=== PATIENT | female | born 1960 | race Caucasian/White ===

== ENCOUNTER 2018-09-02 00:26 | Inpatient (IN) | payer OTHER ==
[2018-09-02] MEDS ORDERED: ACETAMINOPHEN IV (For NPO) 1,000 MG in EMPTY BAG 1 BAG IVPB STA (00:39)
[2018-09-02] MEDS ORDERED: SODIUM CHLORIDE 0.9% 500 ML 500 ML IV STA (00:39)
[2018-09-02] MEDS ORDERED: SODIUM CHLORIDE 0.9% 1,000 ML IV STA ×3 (00:39→04:29)
[2018-09-02] MEDS ORDERED: LORazepam 2 MG/ML INJ IV STA (00:41)
--- NOTE | 2018-09-02 00:42 | ED ---
Weakness HPI - General Chief complaint: Recheck/Abnormal Lab/Rx Stated complaint: tremors,nausea Time Seen by Provider: 09/02/18 00:39 Source: EMS, RN notes reviewed, old records reviewed Mode of arrival: EMS Limitations: no limitations - History of Present Illness Initial comments: This is a 38-year-old female the ER presenting to ER today for evaluation of tremors after taking Benadryl tonight. Patient has no prior similar reaction to taking Benadryl states vaginal every night before she goes to sleep. Patient has history of diabetes high blood pressure high cholesterol. Patient denies cough congestion abdominal pain nausea vomiting or diarrhea MD Complaint: generalized weakness -: hour(s) (1) Location: generalized Severity scale (1-10): 6 Quality: tingling, other (Tremors, Reiger's) Consistency: constant Improves with: none Worsens with: medication Context: recent illness Associated Symptoms: fever/chills, myalgias - Related Data Allergies Allergy/AdvReac Type Severity Reaction Status Date / Time No Known Allergies Allergy Verified 09/02/18 00:35 Review of Systems ROS Statement: Those systems with pertinent positive or pertinent negative responses have been documented in the HPI. ROS Other: All systems not noted in ROS Statement are negative. Past Medical History Past Medical History: Diabetes Mellitus, Hyperlipidemia, Hypertension History of Any Multi-Drug Resistant Organisms: None Reported Past Surgical History: No Surgical Hx Reported Past Psychological History: Depression Smoking Status: Former smoker Past Alcohol Use History: None Reported Past Drug Use History: None Reported General Exam Limitations: no limitations, altered mental status General appearance: alert, anxious, in distress Head exam: Present: atraumatic, normocephalic, normal inspection Eye exam: Present: normal appearance, PERRL, EOMI. Absent: scleral icterus, conjunctival injection, periorbital swelling ENT exam: Present: normal exam Neck exam: Present: normal inspection. Absent: tenderness, meningismus, lymphadenopathy Respiratory exam: Present: normal lung sounds bilaterally. Absent: respiratory distress, wheezes, rales, rhonchi, stridor Cardiovascular Exam: Present: normal rhythm, tachycardia, normal heart sounds. Absent: systolic murmur, diastolic murmur, rubs, gallop, clicks GI/Abdominal exam: Present: soft, normal bowel sounds. Absent: distended, tenderness, guarding, rebound, rigid Extremities exam: Present: normal inspection, full ROM, normal capillary refill. Absent: tenderness, pedal edema, joint swelling, calf tenderness Back exam: Present: normal inspection Neurological exam: Present: alert, oriented X3, CN II-XII intact Psychiatric exam: Present: normal affect, normal mood Skin exam: Present: warm, dry, intact, normal color. Absent: rash Course Vital Signs 09/02/18 09/02/18 09/02/18 00:30 01:00 01:30 Temperature 103.1 F H Pulse Rate 122 H 137 H 129 H Respiratory 22 14 16 Rate Blood Pressure 134/75 145/77 139/74 O2 Sat by Pulse 94 L 95 95 Oximetry 09/02/18 09/02/18 09/02/18 02:00 02:30 03:00 Temperature 100.8 F H Pulse Rate 125 H 118 H 120 H Respiratory 16 18 20 Rate Blood Pressure 139/74 101/54 98/51 O2 Sat by Pulse 95 95 98 Oximetry 09/02/18 09/02/18 03:30 04:32 Temperature 100.1 F H Pulse Rate 118 H 113 H Respiratory 18 20 Rate Blood Pressure 96/57 87/54 O2 Sat by Pulse 95 96 Oximetry - Reevaluation(s) Reevaluation #1: 09/02/18 00:59 Medical record is reviewed Reevaluation #2: 09/02/18 00:59 Patient given fever control feeling better Reevaluation #3: 09/02/18 05:18 Patient responded to fluid resuscitation alert and oriented EKG Findings - EKG Comments: EKG Findings:: CT shows sinus state Craig 13, DC 14, QRS 140, QTc 524 Medical Decision Making - Medical Decision Making 58 female the ER for evaluation of tremors and fever, rigors. Patient be admitted for IV antibiotics, - Lab Data Result diagrams: 09/02/18 00:40 09/02/18 00:40 Lab Results 09/02/18 09/02/18 09/02/18 Range/Units 00:40 00:40 00:40 WBC 6.9 (3.8-10.6) k/uL RBC 4.38 (3.80-5.40) m/uL Hgb 13.6 (11.4-16.0) gm/dL Hct 40.5 (34.0-46.0) % MCV 92.4 (80.0-100.0) fL MCH 31.0 (25.0-35.0) pg MCHC 33.6 (31.0-37.0) g/dL RDW 13.4 (11.5-15.5) % Plt Count 164 (150-450) k/uL Neutrophils % 90 % Lymphocytes % 7 % Monocytes % 1 % Eosinophils % 1 % Basophils % 0 % Neutrophils # 6.3 (1.3-7.7) k/uL Lymphocytes # 0.5 L (1.0-4.8) k/uL Monocytes # 0.1 (0-1.0) k/uL Eosinophils # 0.0 (0-0.7) k/uL Basophils # 0.0 (0-0.2) k/uL PT (9.0-12.0) sec INR (<1.2) APTT (22.0-30.0) sec Sodium 131 L (137-145) mmol/L Potassium 4.6 (3.5-5.1) mmol/L Chloride 98 (98-107) mmol/L Carbon Dioxide 20 L (22-30) mmol/L Anion Gap 13 mmol/L BUN 40 H (7-17) mg/dL Creatinine 0.81 (0.52-1.04) mg/dL Est GFR (CKD-EPI)AfAm >90 (>60 ml/min/1.73 sqM) Est GFR (CKD-EPI)NonAf 82 (>60 ml/min/1.73 sqM) Glucose 454 H (74-99) mg/dL POC Glucose (mg/dL) (75-99) mg/dL POC Glu [employer] ID Lactic Ac Sepsis Rflx Plasma Lactic Acid Wesley (0.7-2.0) mmol/L Calcium 9.6 (8.4-10.2) mg/dL Phosphorus 4.1 (2.5-4.5) mg/dL Magnesium 1.6 (1.6-2.3) mg/dL Total Bilirubin 0.4 (0.2-1.3) mg/dL AST 34 (14-36) U/L ALT 33 (9-52) U/L Alkaline Phosphatase 128 H (38-126) U/L Total Creatine Kinase 22 L (30-135) U/L CK-MB (CK-2) 0.3 (0.0-2.4) ng/mL CK-MB (CK-2) Rel Index 1.4 Troponin I <0.012 (0.000-0.034) ng/mL Total Protein 6.6 (6.3-8.2) g/dL Albumin 3.8 (3.5-5.0) g/dL Lipase 801 H (23-300) U/L TSH 2.130 (0.465-4.680) mIU/L Urine Color Urine Appearance (Clear) Urine pH (5.0-8.0) Ur Specific [place] (1.001-1.035) Urine Protein (Negative) Urine Glucose (UA) (Negative) Urine Ketones (Negative) Urine Blood (Negative) Urine Nitrite (Negative) Urine Bilirubin (Negative) Urine Urobilinogen (<2.0) mg/dL Ur Leukocyte Esterase (Negative) Urine HCG, Qual (Not Detectd) Salicylates 1.6 mg/dL Urine Opiates Screen (NotDetected) Ur Oxycodone Screen (NotDetected) Urine Methadone Screen (NotDetected) Ur Propoxyphene Screen (NotDetected) Acetaminophen <10.0 ug/mL Ur Barbiturates Screen (NotDetected) U Tricyclic Antidepress (NotDetected) Ur Phencyclidine Scrn (NotDetected) Ur Amphetamines Screen (NotDetected) U Methamphetamines Scrn (NotDetected) U Benzodiazepines Scrn (NotDetected) Urine Cocaine Screen (NotDetected) U Marijuana (THC) Screen (NotDetected) Serum Alcohol <10 mg/dL 09/02/18 09/02/18 09/02/18 Range/Units 00:40 00:40 01:35 WBC (3.8-10.6) k/uL RBC (3.80-5.40) m/uL Hgb (11.4-16.0) gm/dL Hct (34.0-46.0) % MCV (80.0-100.0) fL MCH (25.0-35.0) pg MCHC (31.0-37.0) g/dL RDW (11.5-15.5) % Plt Count (150-450) k/uL Neutrophils % % Lymphocytes % % Monocytes % % Eosinophils % % Basophils % % Neutrophils # (1.3-7.7) k/uL Lymphocytes # (1.0-4.8) k/uL Monocytes # (0-1.0) k/uL Eosinophils # (0-0.7) k/uL Basophils # (0-0.2) k/uL PT 9.5 (9.0-12.0) sec INR 1.0 (<1.2) APTT 18.5 L (22.0-30.0) sec Sodium (137-145) mmol/L Potassium (3.5-5.1) mmol/L Chloride (98-107) mmol/L Carbon Dioxide (22-30) mmol/L Anion Gap mmol/L BUN (7-17) mg/dL Creatinine (0.52-1.04) mg/dL Est GFR (CKD-EPI)AfAm (>60 ml/min/1.73 sqM) Est GFR (CKD-EPI)NonAf (>60 ml/min/1.73 sqM) Glucose (74-99) mg/dL POC Glucose (mg/dL) (75-99) mg/dL POC Glu [employer] ID Lactic Ac Sepsis Rflx Y Plasma Lactic Acid Wesley 3.2 H* (0.7-2.0) mmol/L Calcium (8.4-10.2) mg/dL Phosphorus (2.5-4.5) mg/dL Magnesium (1.6-2.3) mg/dL Total Bilirubin (0.2-1.3) mg/dL AST (14-36) U/L ALT (9-52) U/L Alkaline Phosphatase (38-126) U/L Total Creatine Kinase (30-135) U/L CK-MB (CK-2) (0.0-2.4) ng/mL CK-MB (CK-2) Rel Index Troponin I (0.000-0.034) ng/mL Total Protein (6.3-8.2) g/dL Albumin (3.5-5.0) g/dL Lipase (23-300) U/L TSH (0.465-4.680) mIU/L Urine Color Urine Appearance (Clear) Urine pH (5.0-8.0) Ur Specific [place] (1.001-1.035) Urine Protein (Negative) Urine Glucose (UA) (Negative) Urine Ketones (Negative) Urine Blood (Negative) Urine Nitrite (Negative) Urine Bilirubin (Negative) Urine Urobilinogen (<2.0) mg/dL Ur Leukocyte Esterase (Negative) Urine HCG, Qual (Not Detectd) Salicylates mg/dL Urine Opiates Screen (NotDetected) Ur Oxycodone Screen (NotDetected) Urine Methadone Screen (NotDetected) Ur Propoxyphene Screen (NotDetected) Acetaminophen ug/mL Ur Barbiturates Screen (NotDetected) U Tricyclic Antidepress (NotDetected) Ur Phencyclidine Scrn (NotDetected) Ur Amphetamines Screen (NotDetected) U Methamphetamines Scrn (NotDetected) U Benzodiazepines Scrn (NotDetected) Urine Cocaine Screen (NotDetected) U Marijuana (THC) Screen (NotDetected) Serum Alcohol mg/dL 09/02/18 09/02/18 09/02/18 Range/Units 01:43 01:43 04:36 WBC (3.8-10.6) k/uL RBC (3.80-5.40) m/uL Hgb (11.4-16.0) gm/dL Hct (34.0-46.0) % MCV (80.0-100.0) fL MCH (25.0-35.0) pg MCHC (31.0-37.0) g/dL RDW (11.5-15.5) % Plt Count (150-450) k/uL Neutrophils % % Lymphocytes % % Monocytes % % Eosinophils % % Basophils % % Neutrophils # (1.3-7.7) k/uL Lymphocytes # (1.0-4.8) k/uL Monocytes # (0-1.0) k/uL Eosinophils # (0-0.7) k/uL Basophils # (0-0.2) k/uL PT (9.0-12.0) sec INR (<1.2) APTT (22.0-30.0) sec Sodium (137-145) mmol/L Potassium (3.5-5.1) mmol/L Chloride (98-107) mmol/L Carbon Dioxide (22-30) mmol/L Anion Gap mmol/L BUN (7-17) mg/dL Creatinine (0.52-1.04) mg/dL Est GFR (CKD-EPI)AfAm (>60 ml/min/1.73 sqM) Est GFR (CKD-EPI)NonAf (>60 ml/min/1.73 sqM) Glucose (74-99) mg/dL POC Glucose (mg/dL) 370 H (75-99) mg/dL POC Glu [employer] Lilly Doe Lactic Ac Sepsis Rflx Plasma Lactic Acid Wesley (0.7-2.0) mmol/L Calcium (8.4-10.2) mg/dL Phosphorus (2.5-4.5) mg/dL Magnesium (1.6-2.3) mg/dL Total Bilirubin (0.2-1.3) mg/dL AST (14-36) U/L ALT (9-52) U/L Alkaline Phosphatase (38-126) U/L Total Creatine Kinase (30-135) U/L CK-MB (CK-2) (0.0-2.4) ng/mL CK-MB (CK-2) Rel Index Troponin I (0.000-0.034) ng/mL Total Protein (6.3-8.2) g/dL Albumin (3.5-5.0) g/dL Lipase (23-300) U/L TSH (0.465-4.680) mIU/L Urine Color Light Yellow Urine Appearance Clear (Clear) Urine pH 5.0 (5.0-8.0) Ur Specific [place] 1.019 (1.001-1.035) Urine Protein Negative (Negative) Urine Glucose (UA) 4+ H (Negative) Urine Ketones Trace H (Negative) Urine Blood Negative (Negative) Urine Nitrite Negative (Negative) Urine Bilirubin Negative (Negative) Urine Urobilinogen <2.0 (<2.0) mg/dL Ur Leukocyte Esterase Negative (Negative) Urine HCG, Qual Not Detected (Not Detectd) Salicylates mg/dL Urine Opiates Screen Not Detected (NotDetected) Ur Oxycodone Screen Not Detected (NotDetected) Urine Methadone Screen Not Detected (NotDetected) Ur Propoxyphene Screen Not Detected (NotDetected) Acetaminophen ug/mL Ur Barbiturates Screen Not Detected (NotDetected) U Tricyclic Antidepress Not Detected (NotDetected) Ur Phencyclidine Scrn Not Detected (NotDetected) Ur Amphetamines Screen Not Detected (NotDetected) U Methamphetamines Scrn Not Detected (NotDetected) U Benzodiazepines Scrn Not Detected (NotDetected) Urine Cocaine Screen Not Detected (NotDetected) U Marijuana (THC) Screen Not Detected (NotDetected) Serum Alcohol mg/dL - Radiology Data Radiology results: report reviewed (Chest x-rays negative for acute disease), image reviewed Critical Care Time Critical Care Time: Yes Total Critical Care Time: 31 Disposition Clinical Impression: Fever, Weakness, Community acquired pneumonia Disposition: ADMITTED IP TO THIS [facility] Condition: Serious Is patient prescribed a controlled substance at d/c from ED?: No
[2018-09-02] MEDS ORDERED: IBUPROFEN IV 800 MG in SODIUM CHLORIDE 0.9% 250 ML IV ONE (01:00)
[2018-09-02 01:03] LABS: Basophils % (A) 0 %; Eosinophils % (A) 1 %; HCT 40.5 % (34.0-46.0); HGB 13.6 gm/dL (11.4-16.0); Lymphocytes # (A) 0.5 k/uL (1.0-4.8); Lymphocytes % (A) 7 %; MCHC 33.6 g/dL (31.0-37.0); MCV 92.4 fL (80.0-100.0); Mean Platelet Volume 8.1; Monocytes # (A) 0.1 k/uL (0-1.0); Monocytes % (A) 1 %; Neutrophils # (A) 6.3 k/uL (1.3-7.7); Neutrophils % (A) 90 %; Platelet Count 164 k/uL (150-450); RBC 4.38 m/uL (3.80-5.40); RDW 13.4 % (11.5-15.5); WBC 6.9 k/uL (3.8-10.6)
[2018-09-02 01:23] LABS: ALT 33 U/L (9-52); AST 34 U/L (14-36); Acetaminophen <10.0 ug/mL; Albumin 3.8 g/dL (3.5-5.0); Alcohol <10 mg/dL; Alkaline Phosphatase 128 U/L (38-126); Anion Gap 13 mmol/L; Blood Urea Nitrogen 40 mg/dL (7-17); Calcium 9.6 mg/dL (8.4-10.2); Carbon Dioxide 20 mmol/L (22-30); Chloride 98 mmol/L (98-107); Glucose 454 mg/dL (74-99); Lipase 801 U/L (23-300); Magnesium 1.6 mg/dL (1.6-2.3); Phosphorus 4.1 mg/dL (2.5-4.5); Potassium 4.6 mmol/L (3.5-5.1); Salicylate 1.6 mg/dL; Sodium 131 mmol/L (137-145); Total Bilirubin 0.4 mg/dL (0.2-1.3); Total Protein 6.6 g/dL (6.3-8.2)
[2018-09-02 01:26] LABS: Creatine Kinase 22 U/L (30-135)
[2018-09-02 01:39] LABS: Creatine Kinase MB 0.3 ng/mL (0.0-2.4); Troponin I <0.012 ng/mL (0.000-0.034)
[2018-09-02 01:55] LABS: Appearance,Urine Clear (Clear); Bilirubin,Urine Negative (Negative); Blood,Urine Negative (Negative); Color,Urine Light Yellow; Glucose,Urine (UA) 4+ (Negative); Ketones,Urine Trace (Negative); Leukocyte Esterase,Urine Negative (Negative); Nitrite,Urine Negative (Negative); Protein,Urine Negative (Negative); Specific Gravity,Urine 1.019 (1.001-1.035); Urobilinogen,Urine <2.0 mg/dL (<2.0)
[2018-09-02 01:56] LABS: Prothrombin Time 9.5 sec (9.0-12.0)
[2018-09-02 01:59] LABS: Partial Thromboplastin Time 18.5 sec (22.0-30.0)
--- NOTE | 2018-09-02 02:13 | XR ---
EXAMINATION TYPE: XR chest 2V DATE OF EXAM: 09/02/2018 COMPARISON: NONE HISTORY: Weakness TECHNIQUE: Frontal and lateral views of the chest are obtained. FINDINGS: There is no heart failure nor confluent pneumonic infiltrate. There is coarsening of the i nterstitial pulmonary markings. There is poor inspiration. There is no evidence of pleural effusion. IMPRESSION: No active cardiopulmonary disease. Poor inspiration.
[2018-09-02 02:15] LABS: Amphetamine Screen,Urine Not Detected (NotDetected); Barbiturate Screen,Urine Not Detected (NotDetected); Benzodiazepines Screen,Urine Not Detected (NotDetected); Cocaine Screen,Urine Not Detected (NotDetected); Methadone Screen, Urine Not Detected (NotDetected); Opiate Screen,Urine Not Detected (NotDetected); Oxycodone Screen, Urine Not Detected (NotDetected); Phencyclidine Screen,Urine Not Detected (NotDetected); Tricyclic Antidepressant,Urine Not Detected (NotDetected); Urn Cannabinoid Scrn Not Detected (NotDetected)
[2018-09-02] MEDS ORDERED: INSULIN REGULAR 100 UNIT/ML VIAL IV ONE (02:54)
[2018-09-02] MEDS ORDERED: SODIUM CHLORIDE 0.9% 1,000 ML IV ONE (03:20)
--- NOTE | 2018-09-02 03:57 | US ---
EXAMINATION TYPE: US gallbladder DATE OF EXAM: 09/02/2018 COMPARISON: NONE CLINICAL HISTORY: Patient state no pain, no nausea or vomiting. States she is shaky. EXAM MEASUREMENTS: Liver Length: 21 cm Gallbladder Wall: 0.2 cm CBD: 1.0 cm Right Kidney: 11.4 x 5.1 x 5.5 cm Pancreas: Obscured by bowel gas Liver: Echogenic, enlarged. Probable sparring visualized adjacent to the gallbladder measuring 0.8 x 0.6 x 0.8 cm. Intrahepatic ductal dilation visualized Gallbladder: wnl Evidence for sonographic Rodriguez's sign: No CBD: Dilated Right Kidney: No hydronephrosis or masses seen IMPRESSION: No dilated ducts. No gallstones. Large echogenic liver consistent with fatty infiltration .
[2018-09-02 04:37] LABS: Glucose,Whole Blood 370 mg/dL (75-99)
--- NOTE | 2018-09-02 04:52 | CT ---
EXAMINATION TYPE: CT abdomen pelvis w con DATE OF EXAM: 09/02/2018 COMPARISON: None HISTORY: pain CT DLP: 1216.9 mGycm Automated exposure control for dose reduction was used. TECHNIQUE: Helical acquisition of images was performed from the lung bases through the pelvis. CONTRAST: Performed without Oral Contrast and with IV Contrast, patient injected with 100 mL of Isovue 300. FINDINGS: There is subsegmental atelectasis at the lung bases. There is no pleural effusion. Heart size is norm al. There is no pericardial effusion. Liver and spleen appear normal. Bile ducts are not dilated. Gallbladder appears normal. There is no p ancreatic mass. There is no adrenal mass. Kidneys show satisfactory contrast opacification. There is no hydronephrosi s. There is no retroperitoneal adenopathy. Ureters are not dilated. Bladder distends smoothly. There is no inguinal hernia. There is no free fluid in the pelvis. Uterus appears normal. There is no evide nce of a pelvic mass. There is no intestinal wall thickening. There are no dilated loops. There is no ascites. There is no mesenteric edema or adenopathy. Appendix is not definitely seen. There is no sign of appendicitis. Th ere is retained fecal material throughout the abdomen. The lumbar spine is intact. Bony pelvis is int act. There is no evidence of a fracture. IMPRESSION: THERE IS EVIDENCE OF SOME CONSTIPATION. PATCHY INTERSTITIAL INFILTRATES AND ATELECTASIS AT THE LUNG B ASES.
[2018-09-02] MEDS ORDERED: AZITHROMYCIN 500 MG in SODIUM CHLORIDE 0.9% 250 ML IVPB STA (04:56)
[2018-09-02] MEDS ORDERED: PNEUMONIA PROTOCOL UTILIZED 1 EACH MISC PO PRN (04:56)
[2018-09-02] MEDS: SODIUM CHLORIDE 0.9% 1,000 ML IV SCH ×2 (05:36→18:36)
[2018-09-02] MEDS ORDERED: NOREPINEPHRINE 4 MG in SODIUM CHLORIDE 0.9% 250 ML IV SCH (06:30)
[2018-09-02] MEDS ORDERED: INSULIN ASPART 100 UNIT/ML 1 ML 10 ML VIAL SQ SCH (07:30)
[2018-09-02 08:27] LABS: Glucose,Whole Blood 459 mg/dL (75-99)
[2018-09-02] MEDS: IPRATROPIUM-ALBUTEROL 3 ML NEB INHALATION SCH ×4 (08:51→20:21)
[2018-09-02 09:58] LABS: Glucose,Whole Blood 464 mg/dL (75-99)
[2018-09-02] MEDS ORDERED: FUROSEMIDE 80 MG TAB PO SCH (11:00)
[2018-09-02] MEDS: glipiZIDE 10 MG TAB PO SCH ×2 (11:48→22:20)
[2018-09-02] MEDS: LINAGLIPTIN 5 MG TABLET PO SCH (11:49)
[2018-09-02] MEDS: INSULIN REGULAR 100 UNIT in SODIUM CHLORIDE 0.9% 100 ML IV SCH ×2 (12:18→21:42)
[2018-09-02 12:23] LABS: Glucose,Whole Blood 450 mg/dL (75-99)
[2018-09-02 13:10] LABS: Glucose,Whole Blood 344 mg/dL (75-99)
[2018-09-02 14:43] LABS: Glucose,Whole Blood 295 mg/dL (75-99)
[2018-09-02 15:13] LABS: Glucose,Whole Blood 260 mg/dL (75-99)
[2018-09-02 15:33] LABS: Glucose,Whole Blood 212 mg/dL (75-99)
[2018-09-02] MEDS: INSULIN ASPART 100 UNIT/ML 1 ML 10 ML VIAL SQ SCH ×2 (15:45→18:36)
[2018-09-02] MEDS: metFORMIN 500 MG TAB PO SCH ×2 (15:45→18:45)
[2018-09-02 16:22] LABS: Glucose,Whole Blood 187 mg/dL (75-99)
[2018-09-02] MEDS: ENOXAPARIN 40 MG/0.4 ML SYRINGE SQ SCH (18:35)
[2018-09-02] MEDS: ARIPiprazole 10 MG TAB PO SCH (18:35)
[2018-09-02] MEDS: LISINOPRIL 10 MG TAB PO SCH (18:35)
[2018-09-02] MEDS: LITHIUM CARBONATE 150 MG CAP PO SCH ×2 (18:35→22:18)
[2018-09-02 18:39] LABS: Glucose,Whole Blood 403 mg/dL (75-99)
[2018-09-02 18:40] LABS: Hemoglobin A1C 14.2 % (4.0-6.0)
[2018-09-02] MEDS ORDERED: MAGNESIUM HYDROXIDE 2,400 MG/10 ML CUP PO PRN (18:46)
[2018-09-02] MEDS ORDERED: NALOXONE 0.4 MG/ML 1 ML VIAL IV PRN (18:46)
[2018-09-02] MEDS ORDERED: ONDANSETRON 4 MG/2 ML VIAL IVP PRN (18:46)
[2018-09-02] MEDS ORDERED: ACETAMINOPHEN TAB 325 MG TAB PO PRN (18:46)
[2018-09-02] MEDS ORDERED: CALCIUM CARBONATE 500 MG CHEWABLE PO PRN (18:46)
[2018-09-02] MEDS ORDERED: LACTULOSE 20 GM/30 ML CUP PO PRN (18:46)
[2018-09-02] MEDS ORDERED: VANCOMYCIN IV PER PHARMACY 1 EACH MISC MISCELLANE PRN (19:14)
[2018-09-02 19:47] LABS: Glucose,Whole Blood 245 mg/dL (75-99)
--- NOTE | 2018-09-02 20:10 | HP ---
HISTORY AND PHYSICAL DATE OF ADMISSION: 09/02/18. DATE OF SERVICE: 09/02/18. PRESENTING COMPLAINT: Chills, fever. HISTORY OF PRESENTING COMPLAINT: This is a 58-year-old patient who follows with Dr. Rambo Breen. The patient's chronic stable medical conditions include hyperlipidemia, hypertension, obesity. The patient is also a type 2 diabetic. The patient presents through the ER with what appears to be rigors. The patient denies any urinary symptoms. Slight cough is present. The patient has a fever of 103.1 and rather septic looking picture in the ER. The patient is started on IV ceftriaxone. Earlier today I was called. The patient's sugars were running high in 3-400. I started the patient on insulin drip. The patient is rather tired and run down. REVIEW OF SYSTEMS: CONSTITUTIONAL: Weak, tired, febrile. HEENT: None. RESPIRATORY: Some cough. CARDIOVASCULAR: None. GASTROINTESTINAL: None. GENITOURINARY: None. MUSCULOSKELETAL: None. DERMATOLOGICAL: None. HEMATOLOGICAL: None. LYMPHATICS: None. PSYCHIATRY: None. NEUROLOGICAL: Denies any headache. Denies any neck stiffness. No photophobia. PAST MEDICAL HISTORY: Diabetes, hyperlipidemia, hypertension. PAST SURGICAL HISTORY: D and C. PSYCH HISTORY: Depression. SOCIAL HISTORY: , does not smoke or drink alcohol. FAMILY HISTORY: Mother of a stroke in the 70s. HOME MEDICATIONS: Januvia 100 mg a day, simvastatin 80 mg q.h.s., lithium carbonate 150 mg b.i.d., Zestril 10 mg p.o. daily. Aripiprazole 30 mg p.o. daily, Glucotrol XL 20 mg a day, Luvox 150 mg b.i.d., Lasix 80 mg p.o. daily, Metformin 1000 mg p.o. b.i.d. ALLERGIES: None. PHYSICAL EXAMINATION: Vital signs on presentation: Temperature 103.1, pulse 122, respiration 22, blood pressure 134/75, pulse 94 percent on room air. GENERAL APPEARANCE: Well built, BMI 31.7. Lying in bed tired-appearing, awake. EYES: Pupils equal. Conjunctivae normal. HEENT: External appearance of nose and ears normal. Oral cavity normal. NECK: JVD not raised. Mass not palpable. RESPIRATORY: Effort increased. Lungs, decreased breath sounds. CARDIOVASCULAR: 1st and 2nd sounds, no edema. ABDOMEN: Soft, nontender. Liver and spleen not palpable. LYMPHATIC: No lymph node palpable in neck or axillae. PSYCHIATRY: Alert and oriented x3. Mood and affect tired-appearing. NEUROLOGICAL: Pupils equal. No facial asymmetry. Moving all 4 limbs. No neck stiffness. INVESTIGATION: White count 6.9, hemoglobin 13.6, potassium 4.6, BUN 40, creatinine 0.81, blood glucose was 454. Lactic acid 3.2. UA showing glucose 4+. Urine drug screen negative. EKG tracing personally reviewed by me shows right bundle branch block with sinus tachycardia. CT scan of the abdomen and pelvis did report some constipation. Patchy interstitial infiltrates at the lung bases. Chest x-ray film, personally reviewed by me, not a good film but seems to show infiltrate at least on the right lower zone. ASSESSMENT: 1. Right lower lobe pneumonia, suspect gram-negative organism causing sepsis on admission. 2. Diabetes mellitus type 2 on oral hypoglycemic, uncontrolled with hyperglycemia requiring insulin drip. 3. Hyperlipidemia. 4. Essential hypertension. 5. Depression, not otherwise specified. 6. Obesity, BMI 31.7. PLAN: Patient is started on IV antibiotics including ceftriaxone. Insulin drip. Home medications resumed. Will be given Lovenox for DVT prophylaxis. Will hold off Lasix right now. Care was discussed with the patient. Questions were answered. MMODL / IJN: [id number] /
[2018-09-02] MEDS: VANCOMYCIN 1,500 MG in SODIUM CHLORIDE 0.9% 250 ML IVPB SCH (20:11)
--- NOTE | 2018-09-02 20:11 | XR ---
EXAMINATION TYPE: XR chest 1V DATE OF EXAM: 09/02/2018 COMPARISON: Today HISTORY: Pneumonia chest pain TECHNIQUE: Single frontal view of the chest is obtained. FINDINGS: Heart and mediastinum are normal. There is some infiltrate in the medial right lower lung field. There is linear density in the left lower lung field. There is no heart failure. IMPRESSION: There is some subsegmental atelectasis in the left lower lobe. Inspiration is improved c ompared to last exam. There is infiltrate in the medial right lower lobe.
[2018-09-02 21:42] LABS: Glucose,Whole Blood 209 mg/dL (75-99)
[2018-09-02] MEDS: ATORVASTATIN 40 MG TAB PO SCH (21:48)
[2018-09-02 23:57] LABS: Glucose,Whole Blood 166 mg/dL (75-99)
[2018-09-03 02:02] LABS: Glucose,Whole Blood 162 mg/dL (75-99)
[2018-09-03] MEDS: SODIUM CHLORIDE 0.9% 1,000 ML IV SCH ×3 (03:49→20:33)
[2018-09-03 04:05] LABS: Glucose,Whole Blood 210 mg/dL (75-99)
[2018-09-03 06:02] LABS: Glucose,Whole Blood 120 mg/dL (75-99)
[2018-09-03 06:30] LABS: Basophils % (A) 0 %; Eosinophils % (A) 0 %; HCT 35.9 % (34.0-46.0); HGB 12.2 gm/dL (11.4-16.0); Lymphocytes # (A) 0.6 k/uL (1.0-4.8); Lymphocytes % (A) 9 %; MCH 32.1 pg (25.0-35.0); MCHC 33.9 g/dL (31.0-37.0); MCV 94.5 fL (80.0-100.0); Mean Platelet Volume 7.6; Monocytes # (A) 0.3 k/uL (0-1.0); Monocytes % (A) 5 %; Neutrophils # (A) 5.3 k/uL (1.3-7.7); Neutrophils % (A) 83 %; Platelet Count 102 k/uL (150-450); RBC 3.79 m/uL (3.80-5.40); RDW 13.6 % (11.5-15.5); WBC 6.4 k/uL (3.8-10.6)
[2018-09-03 06:45] LABS: Anion Gap 5 mmol/L; Blood Urea Nitrogen 19 mg/dL (7-17); Calcium 8.5 mg/dL (8.4-10.2); Carbon Dioxide 19 mmol/L (22-30); Chloride 114 mmol/L (98-107); Glucose 114 mg/dL (74-99); Potassium 3.5 mmol/L (3.5-5.1); Sodium 138 mmol/L (137-145)
[2018-09-03 07:10] LABS: Glucose,Whole Blood 195 mg/dL (75-99)
[2018-09-03] MEDS: INSULIN ASPART 100 UNIT/ML 1 ML 10 ML VIAL SQ SCH ×3 (07:11→18:07)
[2018-09-03] MEDS: metFORMIN 500 MG TAB PO SCH ×2 (07:11→18:07)
--- NOTE | 2018-09-03 07:11 | XR ---
EXAMINATION TYPE: XR chest 2V DATE OF EXAM: 09/03/2018 HISTORY: pneumonia. REFERENCE: Previous study dated 09/02/2018. FINDINGS: The lungs appear clear. Pleural space are clear. The heart is not enlarged. IMPRESSION: RESOLUTION OF THE PATIENT'S RIGHT LOWER LOBE INFILTRATE.
[2018-09-03] MEDS: IPRATROPIUM-ALBUTEROL 3 ML NEB INHALATION SCH ×4 (07:31→19:18)
[2018-09-03] MEDS: AZITHROMYCIN 500 MG TAB PO SCH (09:19)
[2018-09-03] MEDS: LITHIUM CARBONATE 150 MG CAP PO SCH ×2 (09:20→20:33)
[2018-09-03] MEDS: ENOXAPARIN 40 MG/0.4 ML SYRINGE SQ SCH (09:20)
[2018-09-03] MEDS: LISINOPRIL 10 MG TAB PO SCH (09:20)
[2018-09-03] MEDS: LINAGLIPTIN 5 MG TABLET PO SCH (09:20)
[2018-09-03] MEDS: glipiZIDE 10 MG TAB PO SCH ×2 (09:20→20:33)
[2018-09-03 09:30] LABS: Glucose,Whole Blood 200 mg/dL (75-99)
[2018-09-03] MEDS ORDERED: INSULIN REGULAR 100 UNIT in SODIUM CHLORIDE 0.9% 100 ML IV SCH (11:45)
[2018-09-03 12:08] VITALS: BMI 33.0
[2018-09-03 12:16] LABS: Glucose,Whole Blood 184 mg/dL (75-99)
[2018-09-03] MEDS: ARIPiprazole 10 MG TAB PO SCH (12:23)
[2018-09-03] MEDS: VANCOMYCIN 1,500 MG in SODIUM CHLORIDE 0.9% 250 ML IVPB SCH ×2 (12:23→20:55)
[2018-09-03 14:19] LABS: Glucose,Whole Blood 211 mg/dL (75-99)
[2018-09-03 17:18] LABS: Glucose,Whole Blood 205 mg/dL (75-99)
[2018-09-03 19:05] LABS: Glucose,Whole Blood 244 mg/dL (75-99)
[2018-09-03] MEDS: ATORVASTATIN 40 MG TAB PO SCH (20:32)
[2018-09-03 21:22] LABS: Glucose,Whole Blood 188 mg/dL (75-99)
--- NOTE | 2018-09-03 22:04 | PN ---
PROGRESS NOTE DATE OF SERVICE: September 03, 2018. PRESENTING COMPLAINT: Fever and chills. INTERVAL HISTORY: This patient presented with right lower lobe pneumonia, some cough is present but better. Feeling more upright today. Tired. Did tolerate some diet. Appetite is just started to pick up man. is present. REVIEW OF SYSTEMS: Done for constitutional, cardiovascular, GI, pulmonary; relevant findings as above. CURRENT MEDICATIONS: Reviewed that include IV ceftriaxone, insulin, vancomycin. PHYSICAL EXAMINATION: VITAL SIGNS: T-max 100.6 last night, afebrile today, pulse 99, blood pressure 109/69, pulse ox 97% on room air. GENERAL APPEARANCE: Less tired looking today, more awake. EYES: Pupils equal. Conjunctivae normal. HEENT external appearance of nose and ears normal. Oral cavity normal. NECK: JVD not raised. Mass not palpable. RESPIRATORY: Effort normal. LUNGS: Decreased breath sounds. CARDIOVASCULAR: 1st and 2nd sounds normal. No edema. ABDOMEN: Soft, nontender. Liver and spleen not palpable. PSYCHIATRY: Alert and oriented x3. Mood and affect normal. INVESTIGATIONS: White count 6.4, potassium 3.5, BUN 19, creatinine 0.58. Chest x-ray film, personally reviewed by me shows improvement of the infiltrate. ASSESSMENT: 1. Right lower lobe pneumonia suspect gram-negative organism causing sepsis, present on admission. 2. Diabetes mellitus type 2 on oral hypoglycemics, uncontrolled with hyperglycemia. 3. Hyperlipidemia. 4. Essential hypertension. 5. Depression, not otherwise specified. 6. Obesity, BMI 31.7. PLAN: Continue with IV antibiotics, other medications and treatment plan. The patient is encouraged to take an oral diet. Care was discussed with the . Questions were answered. MMODL / IJN: [id number] /
[2018-09-03 23:07] LABS: Glucose,Whole Blood 164 mg/dL (75-99)
[2018-09-04 01:02] LABS: Glucose,Whole Blood 186 mg/dL (75-99)
[2018-09-04] MEDS: MELATONIN 3 MG TABLET PO PRN (01:26)
[2018-09-04 03:36] LABS: Glucose,Whole Blood 139 mg/dL (75-99)
[2018-09-04 05:49] LABS: Glucose,Whole Blood 161 mg/dL (75-99)
[2018-09-04] MEDS: INSULIN REGULAR 100 UNIT in SODIUM CHLORIDE 0.9% 100 ML IV SCH (05:53)
[2018-09-04] MEDS: IPRATROPIUM-ALBUTEROL 3 ML NEB INHALATION SCH ×4 (07:09→19:41)
[2018-09-04 08:06] LABS: Glucose,Whole Blood 153 mg/dL (75-99)
[2018-09-04] MEDS: SODIUM CHLORIDE 0.9% 1,000 ML IV SCH ×2 (08:13→18:01)
[2018-09-04] MEDS: INSULIN ASPART 100 UNIT/ML 1 ML 10 ML VIAL SQ SCH ×4 (08:20→21:22)
[2018-09-04] MEDS: ENOXAPARIN 40 MG/0.4 ML SYRINGE SQ SCH (08:21)
[2018-09-04] MEDS: ARIPiprazole 10 MG TAB PO SCH (08:21)
[2018-09-04] MEDS: AZITHROMYCIN 500 MG TAB PO SCH (08:21)
[2018-09-04] MEDS: metFORMIN 500 MG TAB PO SCH ×2 (08:21→18:00)
[2018-09-04] MEDS: LITHIUM CARBONATE 150 MG CAP PO SCH ×2 (08:22→20:21)
[2018-09-04] MEDS: glipiZIDE 10 MG TAB PO SCH ×2 (08:22→20:21)
[2018-09-04] MEDS: LINAGLIPTIN 5 MG TABLET PO SCH (08:22)
[2018-09-04] MEDS: LISINOPRIL 10 MG TAB PO SCH (08:22)
[2018-09-04 09:06] LABS: Anion Gap 7 mmol/L; Blood Urea Nitrogen 11 mg/dL (7-17); Carbon Dioxide 17 mmol/L (22-30); Chloride 116 mmol/L (98-107); Glucose 166 mg/dL (74-99); Potassium 3.8 mmol/L (3.5-5.1); Sodium 140 mmol/L (137-145)
[2018-09-04 09:07] LABS: Calcium 8.2 mg/dL (8.4-10.2)
[2018-09-04] MEDS: VANCOMYCIN 1,500 MG in SODIUM CHLORIDE 0.9% 250 ML IVPB SCH ×2 (09:40→21:22)
[2018-09-04 09:57] LABS: Glucose,Whole Blood 218 mg/dL (75-99)
[2018-09-04 11:59] LABS: Glucose,Whole Blood 143 mg/dL (75-99)
[2018-09-04 15:27] VITALS: RESP 16
[2018-09-04 17:15] LABS: Glucose,Whole Blood 175 mg/dL (75-99)
[2018-09-04] MEDS ORDERED: VANCOMYCIN TROUGH DUE 1 EACH MISC MISCELLANE ONE (20:00)
[2018-09-04] MEDS: ATORVASTATIN 40 MG TAB PO SCH (20:21)
[2018-09-04 21:01] LABS: Glucose,Whole Blood 362 mg/dL (75-99)
--- NOTE | 2018-09-04 22:35 | PN ---
PROGRESS NOTE DATE OF SERVICE: 09/04/2018. PRESENTING COMPLAINT: Fever and chills. INTERVAL HISTORY: This patient presented with right lower lobe pneumonia. Breathing is getting better, tired. Appetite is improving. The patient said her sugars run high at home, often times in the 300s. She does not want to take insulin. REVIEW OF SYSTEMS: Done for constitutional, cardiovascular, GI, pulmonary; relevant findings as above. CURRENT MEDICATIONS: Reviewed, that include IV ceftriaxone, insulin drip, vancomycin. PHYSICAL EXAMINATION: Temperature 97.8, pulse 83, respirations 13, blood pressure 160/68, pulse ox 95% on room air. GENERAL APPEARANCE: Sitting up, more awake. EYES: Pupils equal. Conjunctivae normal. HEENT: External appearance of nose and ears normal. Oral cavity normal. NECK: JVD not raised. Mass not palpable. LUNGS: Decreased breath sounds. CARDIOVASCULAR: 1st and 2nd heart sounds. No edema. ABDOMEN: Soft, nontender. Liver and spleen not palpable. PSYCHIATRY: Alert and oriented x3. Mood and affect normal. INVESTIGATIONS: Potassium 3.8, BUN and creatinine normal. Accu-Cheks are noted. ASSESSMENT: 1. Right lobe pneumonia, suspect gram-negative organism causing sepsis, present on admission, with clinical response. 2. Diabetes mellitus type 2, on oral hypoglycemic, uncontrolled with hypoglycemia at the baseline. 3. Hyperlipidemia. 4. Essential hypertension. 5. Depression, not otherwise specified. 6. Obesity, BMI 31.7. PLAN: We will discontinue patient's insulin drip. The patient is only on Glucotrol 10 mg twice a day. Tradjenta was added. Continue with Glucophage. Will discontinue vancomycin. Looking at possible discharge tomorrow. MMODL / IJN: [id number] /
[2018-09-05] MEDS: MELATONIN 3 MG TABLET PO PRN (00:10)
[2018-09-05 07:07] LABS: Glucose,Whole Blood 231 mg/dL (75-99)
[2018-09-05] MEDS: IPRATROPIUM-ALBUTEROL 3 ML NEB INHALATION SCH ×3 (07:40→15:12)
[2018-09-05] MEDS: INSULIN ASPART 100 UNIT/ML 1 ML 10 ML VIAL SQ SCH ×2 (07:40→12:30)
[2018-09-05] MEDS: metFORMIN 500 MG TAB PO SCH (07:40)
[2018-09-05] MEDS: ENOXAPARIN 40 MG/0.4 ML SYRINGE SQ SCH (07:40)
[2018-09-05] MEDS: ARIPiprazole 10 MG TAB PO SCH (07:40)
[2018-09-05] MEDS: AZITHROMYCIN 500 MG TAB PO SCH (07:40)
[2018-09-05] MEDS: LITHIUM CARBONATE 150 MG CAP PO SCH (07:41)
[2018-09-05] MEDS: LINAGLIPTIN 5 MG TABLET PO SCH (07:41)
[2018-09-05] MEDS: glipiZIDE 10 MG TAB PO SCH (07:41)
[2018-09-05] MEDS: LISINOPRIL 10 MG TAB PO SCH (07:41)
[2018-09-05 07:42] VITALS: BP 108/67; TEMP 97.9
[2018-09-05 07:50] VITALS: PULSE 74
[2018-09-05] MEDS ORDERED: VANCOMYCIN 1,750 MG in SODIUM CHLORIDE 0.9% 500 ML 500 ML IVPB SCH (09:00)
[2018-09-05 09:02] LABS: Basophils % (A) 0 %; Eosinophils # (A) 0.1 k/uL (0-0.7); Eosinophils % (A) 2 %; HCT 37.2 % (34.0-46.0); HGB 12.2 gm/dL (11.4-16.0); Lymphocytes # (A) 1.6 k/uL (1.0-4.8); Lymphocytes % (A) 30 %; MCH 31.3 pg (25.0-35.0); MCHC 32.8 g/dL (31.0-37.0); MCV 95.3 fL (80.0-100.0); Monocytes # (A) 0.2 k/uL (0-1.0); Monocytes % (A) 4 %; Neutrophils # (A) 3.1 k/uL (1.3-7.7); Neutrophils % (A) 60 %; Platelet Count 140 k/uL (150-450); RBC 3.91 m/uL (3.80-5.40); WBC 5.3 k/uL (3.8-10.6)
[2018-09-05 09:44] LABS: Anion Gap 8 mmol/L; Blood Urea Nitrogen 7 mg/dL (7-17); Calcium 8.7 mg/dL (8.4-10.2); Carbon Dioxide 19 mmol/L (22-30); Chloride 111 mmol/L (98-107); Glucose 230 mg/dL (74-99); Sodium 138 mmol/L (137-145)
[2018-09-05 12:34] LABS: Glucose,Whole Blood 198 mg/dL (75-99)
--- NOTE | 2018-09-06 09:01 | DS ---
DISCHARGE SUMMARY DATE OF ADMISSION: 09/02/2018 DATE OF DISCHARGE: 09/05/2018 FINAL DIAGNOSES: 1. Right lobe pneumonia, suspect gram-negative organism causing sepsis, present on admission. 2. Diabetes mellitus type 2 on oral hypoglycemic, uncontrolled with . 3. Hyperlipidemia. 4. Essential hypertension. 5. Depression, not otherwise specified. 6. Obesity, body mass index 31.7. HOSPITAL COURSE: The patient presented with chills, rigors, fever, found to have a right-sided pneumonia. Responded well to antibiotics in the form of IV ceftriaxone and vancomycin. Sugars were running high. Initially was given insulin drip. The patient's sugars run high still. Patient does not want to take any form of insulin, discussed with her. Doing better today. PHYSICAL EXAMINATION: On examination, afebrile, pulse 74, respiration 16, blood pressure 108/67, pulse ox 100% on room air. LUNGS: Improved air entry. CARDIOVASCULAR: First and second sounds normal. Discussion and discharge planning more than 35 minutes. DISCHARGE MEDICATIONS: 1. Aripiprazole 30 mg p.o. daily. 2. Zestril 10 mg p.o. daily. 3. [place] carbonate 150 mg b.i.d. 4. Luvox 150 mg b.i.d. 5. Glucotrol XL 20 mg p.o. daily. 6. Metformin 1000 mg p.o. b.i.d. 7. Januvia 100 mg p.o. daily. 8. Lipitor 40 mg q.h.s. 9. Lasix 20 mg p.o. daily. 10.Levaquin 750 mg p.o. daily for 7 days. 11.Accu-Cheks daily. Follow up with Dr. Breen on 09/06/2018. Discussion and discharge planning more than 35 minutes. MMODL / IJN: [id number] /
== END 2018-09-05 15:53 | disposition home or self-care (01) | DRG 871 ==
LOC: EC 00:26 → 3SCARD 04:56 → 4MS4W 09-03 15:10
PROVIDERS: ADMIT Hospitalist; ATTEND Hospitalist
DX: A41.50 Gram-negative sepsis, unspecified (principal); J18.9 Pneumonia, unspecified organism; E78.5 Hyperlipidemia, unspecified; I10 Essential (primary) hypertension; E66.9 Obesity, unspecified; E11.65 Type 2 diabetes mellitus with hyperglycemia; E78.00 Pure hypercholesterolemia, unspecified; F32.9 Major depressive disorder, single episode, unspecified; Z82.3 Family history of stroke; Z79.84 Long term (current) use of oral hypoglycemic drugs; Z79.899 Other long term (current) drug therapy; Z68.31 Body mass index [BMI] 31.0-31.9, adult; Z87.891 Personal history of nicotine dependence
CPT/HCPCS: 36415; 71045; 71046; 74177; 76705; 80048; 80053; 80202; 80306; 80320; 81003; 81025; 82550; 82553; 83036; 83520; 83605; 83690; 83735; 84100; 84443; 84484; 85025; 85610; 85730; 87040; 87077; 87186; 93005; 94640; 96361; 96365; 96366; 96367; 96375; 99291

== ENCOUNTER 2020-03-27 10:22 | Inpatient (IN) | payer OTHER ==
[2020-03-27] MEDS ORDERED: SODIUM CHLORIDE 0.9% 500 ML 500 ML IV SCH (10:45)
[2020-03-27] MEDS ORDERED: SODIUM CHLORIDE 0.9% 500 ML 500 ML IV STA (10:45)
--- NOTE | 2020-03-27 10:47 | ED ---
General Adult HPI - General Chief complaint: Recheck/Abnormal Lab/Rx Stated complaint: Hyperglycemia Time Seen by Provider: 03/27/20 10:25 Source: patient, RN notes reviewed Mode of arrival: EMS Limitations: no limitations - History of Present Illness Initial comments: 59-year-old female with a past medical history of hyperlipidemia, hypertension, diabetes mellitus presents to the emergency department for a chief complaint of hyperglycemia. Patient apparently had a high glucose at home and it would not read on the glucometer. Patient is an insulin-dependent diabetic and did receive 30 units prior to arrival. Patient also has a wound of the right foot. Patient states it is only been a week that this wound has occurred however it appears to have been there longer. Patient has erythema ascending up the right ankle. She denies fevers. Patient states her has been caring for this wound.Patient has no other complaints at this time including shortness of breath, chest pain, abdominal pain, nausea or vomiting, headache, or visual darby nges. - Related Data Home Medications Medication Instructions Recorded Confirmed Insulin Glargine,Hum.rec.anlog 30 unit SQ HS 03/27/20 03/27/20 [Basaglar Kwikpen U-100] [place] Carbonate 300 mg PO DAILY 03/27/20 03/27/20 Multivitamins, Thera [Multivitamin 1 tab PO DAILY 03/27/20 03/27/20 (formulary)] amLODIPine [Norvasc] 10 mg PO DAILY 03/27/20 03/27/20 busPIRone HCl [Buspar] 10 mg PO BID 03/27/20 03/27/20 fluvoxaMINE MALEATE [Luvox] 25 mg PO DAILY 03/27/20 03/27/20 lamoTRIgine [LaMICtal] 100 mg PO DAILY 03/27/20 03/27/20 Previous Rx's Medication Instructions Recorded Atorvastatin [Lipitor] 40 mg PO HS #30 tab 09/05/18 Allergies Allergy/AdvReac Type Severity Reaction Status Date / Time cephalexin [From Keflex] Allergy Rash/Hives Verified 03/27/20 10:34 Review of Systems ROS Statement: Those systems with pertinent positive or pertinent negative responses have been documented in the HPI. ROS Other: All systems not noted in ROS Statement are negative. Past Medical History Past Medical History: Diabetes Mellitus, Hyperlipidemia, Hypertension Additional Past Medical History / Comment(s): NIDDM type II, pt does not know why she is taking Lasix. History of Any Multi-Drug Resistant Organisms: None Reported Past Surgical History: No Surgical Hx Reported Additional Past Surgical History / Comment(s): D&C Past Anesthesia/Blood Transfusion Reactions: No Reported Reaction Past Psychological History: Depression Smoking Status: Former smoker Past Alcohol Use History: None Reported Past Drug Use History: None Reported - Past Family History Mother Additional Family Medical History / Comment(s): Mother of a [place] of a stroke in her 70s. Father Family Medical History: Neurologic Disorder Additional Family Medical History / Comment(s): Father had parkinson's disease. General Exam Limitations: no limitations General appearance: alert, in no apparent distress Head exam: Present: atraumatic, normocephalic, normal inspection Eye exam: Present: normal appearance, PERRL, EOMI. Absent: scleral icterus, conjunctival injection, periorbital swelling ENT exam: Present: normal exam, mucous membranes moist Neck exam: Present: normal inspection, full ROM. Absent: tenderness, meningismus, lymphadenopathy Respiratory exam: Present: normal lung sounds bilaterally. Absent: respiratory distress, wheezes, rales, rhonchi, stridor Cardiovascular Exam: Present: regular rate, normal rhythm, normal heart sounds. Absent: systolic murmur, diastolic murmur, rubs, gallop, clicks GI/Abdominal exam: Present: soft, normal bowel sounds. Absent: distended, tenderness, guarding, rebound, rigid Extremities exam: Present: other (Patient has wound noted to the medial MCP joint of the right foot as well as the plantar aspect of the MCP joint. Edema noted of the right foot. Erythema ascending up to the mid tib-fib area.) Course Vital Signs 03/27/20 03/27/20 03/27/20 10:27 11:15 13:00 Temperature 98.4 F Pulse Rate 91 87 80 Pulse Rate [ Pulse Oximetery ] Respiratory 32 H 20 20 Rate Blood Pressure 105/64 102/61 106/73 Blood Pressure [Left Arm] O2 Sat by Pulse 92 L 93 L 99 Oximetry 03/27/20 03/27/20 14:00 16:00 Temperature 98.4 F Pulse Rate 82 Pulse Rate [ 85 Pulse Oximetery ] Respiratory 20 24 Rate Blood Pressure 108/61 Blood Pressure 108/58 [Left Arm] O2 Sat by Pulse 99 92 L Oximetry EKG Findings - EKG Comments: EKG Findings:: Sinus rhythm, ventricular rate 91, QRS duration 170, QTC 528 Medical Decision Making - Medical Decision Making Patient presenting for wound and cellulitis of the right foot as well as associated hyperglycemia. Glucose 737 here in the emergency room. Anion gap 13, pH 7.35. Acetone pending. Patient was given 1 L of fluids. However chest x-ray does show possible CHF. BNP will be added. Patient has evidence of right lower sure cellulitis with multiple ulcerations and edema. White blood cell count 32.3. X-ray of the right foot shows soft tissue edema and suspected ulceration adjacent to the first metatarsal without distractive changes seen. Adjacent to the posterior soft tissue of the distal tibia and fibular suggestion of subcutaneous emphysema associated with infectious etiology and cellulitis. Patient was started on vancomycin and Unasyn. - Lab Data Result diagrams: 03/27/20 10:32 03/27/20 15:49 Lab Results 03/27/20 03/27/20 03/27/20 Range/Units 10:32 10:32 10:32 WBC 32.3 H (3.8-10.6) k/uL RBC 2.96 L (3.80-5.40) m/uL Hgb 8.2 L (11.4-16.0) gm/dL Hct 26.6 L (34.0-46.0) % MCV 89.8 (80.0-100.0) fL MCH 27.6 (25.0-35.0) pg MCHC 30.7 L (31.0-37.0) g/dL RDW 16.1 H (11.5-15.5) % Plt Count 490 H (150-450) k/uL Neutrophils % 95 % Lymphocytes % 2 % Monocytes % 3 % Eosinophils % 0 % Basophils % 0 % Neutrophils # 30.7 H (1.3-7.7) k/uL Lymphocytes # 0.5 L (1.0-4.8) k/uL Monocytes # 0.9 (0-1.0) k/uL Eosinophils # 0.0 (0-0.7) k/uL Basophils # 0.1 (0-0.2) k/uL Manual Slide Review Performed Polychromasia Present Hypochromasia Marked Poikilocytosis (manual Present Anisocytosis Slight PT 10.4 (9.0-12.0) sec INR 1.0 (<1.2) APTT 22.6 (22.0-30.0) sec VBG pH 7.35 (7.31-7.41) VBG pCO2 37 (37-51) mmHg VBG HCO3 20 L (24-28) mmol/L Sodium (137-145) mmol/L Potassium (3.5-5.1) mmol/L Chloride (98-107) mmol/L Carbon Dioxide (22-30) mmol/L Anion Gap mmol/L BUN (7-17) mg/dL Creatinine (0.52-1.04) mg/dL Est GFR (CKD-EPI)AfAm (>60 ml/min/1.73 sqM) Est GFR (CKD-EPI)NonAf (>60 ml/min/1.73 sqM) Glucose (74-99) mg/dL POC Glucose (mg/dL) (75-99) mg/dL POC Glu Pet Training Instructor ID Plasma Lactic Acid Wesley (0.7-2.0) mmol/L Calcium (8.4-10.2) mg/dL Magnesium (1.6-2.3) mg/dL Total Bilirubin (0.2-1.3) mg/dL AST (14-36) U/L ALT (4-34) U/L Alkaline Phosphatase (38-126) U/L NT-Pro-B Natriuret Pep pg/mL Total Protein (6.3-8.2) g/dL Albumin (3.5-5.0) g/dL Acetone, Qual (Negative) 03/27/20 03/27/20 03/27/20 Range/Units 10:32 10:32 10:32 WBC (3.8-10.6) k/uL RBC (3.80-5.40) m/uL Hgb (11.4-16.0) gm/dL Hct (34.0-46.0) % MCV (80.0-100.0) fL MCH (25.0-35.0) pg MCHC (31.0-37.0) g/dL RDW (11.5-15.5) % Plt Count (150-450) k/uL Neutrophils % % Lymphocytes % % Monocytes % % Eosinophils % % Basophils % % Neutrophils # (1.3-7.7) k/uL Lymphocytes # (1.0-4.8) k/uL Monocytes # (0-1.0) k/uL Eosinophils # (0-0.7) k/uL Basophils # (0-0.2) k/uL Manual Slide Review Polychromasia Hypochromasia Poikilocytosis (manual Anisocytosis PT (9.0-12.0) sec INR (<1.2) APTT (22.0-30.0) sec VBG pH (7.31-7.41) VBG pCO2 (37-51) mmHg VBG HCO3 (24-28) mmol/L Sodium 131 L (137-145) mmol/L Potassium 4.1 (3.5-5.1) mmol/L Chloride 101 (98-107) mmol/L Carbon Dioxide 17 L (22-30) mmol/L Anion Gap 13 mmol/L BUN 81 H (7-17) mg/dL Creatinine 1.22 H (0.52-1.04) mg/dL Est GFR (CKD-EPI)AfAm 57 (>60 ml/min/1.73 sqM) Est GFR (CKD-EPI)NonAf 49 (>60 ml/min/1.73 sqM) Glucose 737 H* (74-99) mg/dL POC Glucose (mg/dL) (75-99) mg/dL POC Glu Pet Training Instructor ID Plasma Lactic Acid Wesley 1.8 (0.7-2.0) mmol/L Calcium 8.3 L (8.4-10.2) mg/dL Magnesium 2.3 (1.6-2.3) mg/dL Total Bilirubin 0.5 (0.2-1.3) mg/dL AST 20 (14-36) U/L ALT 18 (4-34) U/L Alkaline Phosphatase 230 H (38-126) U/L NT-Pro-B Natriuret Pep pg/mL Total Protein 4.9 L (6.3-8.2) g/dL Albumin 2.3 L (3.5-5.0) g/dL Acetone, Qual Negative (Negative) 03/27/20 03/27/20 Range/Units 10:32 12:26 WBC (3.8-10.6) k/uL RBC (3.80-5.40) m/uL Hgb (11.4-16.0) gm/dL Hct (34.0-46.0) % MCV (80.0-100.0) fL MCH (25.0-35.0) pg MCHC (31.0-37.0) g/dL RDW (11.5-15.5) % Plt Count (150-450) k/uL Neutrophils % % Lymphocytes % % Monocytes % % Eosinophils % % Basophils % % Neutrophils # (1.3-7.7) k/uL Lymphocytes # (1.0-4.8) k/uL Monocytes # (0-1.0) k/uL Eosinophils # (0-0.7) k/uL Basophils # (0-0.2) k/uL Manual Slide Review Polychromasia Hypochromasia Poikilocytosis (manual Anisocytosis PT (9.0-12.0) sec INR (<1.2) APTT (22.0-30.0) sec VBG pH (7.31-7.41) VBG pCO2 (37-51) mmHg VBG HCO3 (24-28) mmol/L Sodium (137-145) mmol/L Potassium (3.5-5.1) mmol/L Chloride (98-107) mmol/L Carbon Dioxide (22-30) mmol/L Anion Gap mmol/L BUN (7-17) mg/dL Creatinine (0.52-1.04) mg/dL Est GFR (CKD-EPI)AfAm (>60 ml/min/1.73 sqM) Est GFR (CKD-EPI)NonAf (>60 ml/min/1.73 sqM) Glucose (74-99) mg/dL POC Glucose (mg/dL) >600 H (75-99) mg/dL POC Glu Pet Training Instructor ID Shaina Marie Plasma Lactic Acid Wesley (0.7-2.0) mmol/L Calcium (8.4-10.2) mg/dL Magnesium (1.6-2.3) mg/dL Total Bilirubin (0.2-1.3) mg/dL AST (14-36) U/L ALT (4-34) U/L Alkaline Phosphatase (38-126) U/L NT-Pro-B Natriuret Pep 3210 pg/mL Total Protein (6.3-8.2) g/dL Albumin (3.5-5.0) g/dL Acetone, Qual (Negative) Critical Care Time Critical Care Time: Yes Critical Care Time: 33 minutes of critical care time was spent reviewing chart, gathering history, evaluating patient several times, ordering insulin drip, speaking with admitting physicians Disposition Clinical Impression: Sepsis, Cellulitis, Hyperglycemia Disposition: ADMITTED IP TO THIS [facility] Condition: Fair Is patient prescribed a controlled substance at d/c from ED?: No Time of Disposition: 19:11
[2020-03-27] MEDS ORDERED: AMPICILLIN-SULBACTAM 3 GM in SODIUM CHLORIDE 0.9% 100 ML IVPB STA (10:48)
[2020-03-27] MEDS ORDERED: VANCOMYCIN IV PER PHARMACY 1 EACH MISC MISCELLANE PRN (10:49)
[2020-03-27] MEDS ORDERED: VANCOMYCIN 1,500 MG in SODIUM CHLORIDE 0.9% 250 ML IVPB STA (10:55)
[2020-03-27 10:59] LABS: VBG PH 7.35 (7.31-7.41)
[2020-03-27 11:23] LABS: Anisocytosis Slight; Basophils # (A) 0.1 k/uL (0-0.2); Basophils % (A) 0 %; Eosinophils % (A) 0 %; HCT 26.6 % (34.0-46.0); HGB 8.2 gm/dL (11.4-16.0); Hypochromasia Marked; Lymphocytes # (A) 0.5 k/uL (1.0-4.8); Lymphocytes % (A) 2 %; MCH 27.6 pg (25.0-35.0); MCHC 30.7 g/dL (31.0-37.0); MCV 89.8 fL (80.0-100.0); Mean Platelet Volume 8.1; Monocytes # (A) 0.9 k/uL (0-1.0); Monocytes % (A) 3 %; Neutrophils # (A) 30.7 k/uL (1.3-7.7); Neutrophils % (A) 95 %; Platelet Count 490 k/uL (150-450); RBC 2.96 m/uL (3.80-5.40); RDW 16.1 % (11.5-15.5); WBC 32.3 k/uL (3.8-10.6)
--- NOTE | 2020-03-27 11:37 | XR ---
EXAMINATION TYPE: XR ankle complete RT DATE OF EXAM: 03/27/2020 COMPARISON: NONE HISTORY: Pain FINDINGS: Three views of the ankle demonstrate the ankle mortise to be intact and symmetric. The joint spaces are preserved. The osseous structures are intact. Diffuse soft tissue edema. Vascular calcification . Plantar calcaneal spur. IMPRESSION: 1. Diffuse severe soft tissue edema correlate for cellulitis..
[2020-03-27 11:38] LABS: Partial Thromboplastin Time 22.6 sec (22.0-30.0); Prothrombin Time 10.4 sec (9.0-12.0)
--- NOTE | 2020-03-27 11:38 | XR ---
EXAMINATION TYPE: XR chest 2V DATE OF EXAM: 03/27/2020 COMPARISON: 09/03/2018 HISTORY: Shortness of breath FINDINGS: There are bilateral pleural effusions with cardiomegaly and bibasilar infiltrate. There is a diffuse interstitial pattern. No pneumothorax. Hypertrophic and degenerative change of the spine. IMPRESSION: 1. Correlate for CHF otherwise consider pneumonia.
--- NOTE | 2020-03-27 11:39 | XR ---
EXAMINATION TYPE: XR foot complete RT DATE OF EXAM: 03/27/2020 COMPARISON: NONE HISTORY: Pain and swelling TECHNIQUE: Three views are submitted. FINDINGS: The osseous structures are intact. There is no acute fracture or dislocation. There is a soft tiss ue ulcer wound adjacent to the first metatarsal. Arthropathy of all MTP joints noted. No destructive change. Small calcaneal spurs seen and there is pes planus deformity. IMPRESSION: 1. Soft tissue edema and suspected ulceration adjacent to the first metatarsal. No destructive change s seen. Adjacent to the posterior soft tissues of the distal tibia and fibular suggestion of subcutan eous emphysema which be associated with infectious etiology and cellulitis.
[2020-03-27 11:44] LABS: Albumin 2.3 g/dL (3.5-5.0); Calcium 8.3 mg/dL (8.4-10.2); Magnesium 2.3 mg/dL (1.6-2.3); Potassium 4.1 mmol/L (3.5-5.1); Total Bilirubin 0.5 mg/dL (0.2-1.3); Total Protein 4.9 g/dL (6.3-8.2)
[2020-03-27 12:28] LABS: Glucose,Whole Blood >600 mg/dL (75-99)
[2020-03-27] MEDS ORDERED: SODIUM CHLORIDE 0.9% 1,000 ML IV STA (12:34)
[2020-03-27 12:55] LABS: Polychromasia Present
[2020-03-27 12:56] LABS: Poikilocytosis (M) Present
[2020-03-27] MEDS ORDERED: MELATONIN 3 MG TABLET PO PRN (12:57)
[2020-03-27] MEDS ORDERED: NALOXONE 0.4 MG/ML 1 ML VIAL IV PRN (12:57)
[2020-03-27] MEDS ORDERED: MAGNESIUM HYDROXIDE 2,400 MG/10 ML CUP PO PRN (12:57)
[2020-03-27] MEDS ORDERED: CALCIUM CARBONATE 500 MG CHEWABLE PO PRN (12:57)
[2020-03-27] MEDS ORDERED: ACETAMINOPHEN TAB 325 MG TAB PO PRN (12:57)
[2020-03-27] MEDS ORDERED: LACTULOSE 20 GM/30 ML CUP PO PRN (12:57)
[2020-03-27] MEDS ORDERED: MAG HYDROX/AL HYDROX/SIMETH 30 ML CUP PO PRN (12:57)
[2020-03-27 13:45] LABS: Glucose,Whole Blood >600 mg/dL (75-99)
[2020-03-27] MEDS: INSULIN REGULAR 100 UNIT in SODIUM CHLORIDE 0.9% 100 ML IV SCH (14:05)
--- NOTE | 2020-03-27 14:23 | P.HPIM ---
History of Present Illness H&P Date: 03/27/20 Chief Complaint: right foot infection History of presenting complaint: This is a 59-year-old patient who follows with Dr. Og. Chronic stable medical conditions include depression, hypertension, hyperlipidemia, diabetes, peripheral neuropathy. Patient rather tired. Not able to give to her history. States she injured her foot about a week ago and the motor wound on the right foot. She has some neuropathy and decreased sensation. It has become inflamed and draining not getting better. Hence she presented here. Denies any obvious fever and chills. In the ER glucose was found to be 737. Started on insulin drip. Patient somewhat lethargic but able to answer questions. Review of systems: GEN.: Tired EYES: None HEENT: None NECK: None RESPIRATORY: None CARDIOVASCULAR: None GASTROINTESTINAL: None GENITOURINARY: None MUSCULOSKELETAL: As above LYMPHATICS: None HEMATOLOGICAL: None PSYCHIATRY: Lethargic] NEUROLOGICAL: [Decreased sensation distally Past medical history to include: Depression, hypertension, hyperlipidemia, diabetes, peripheral neuropathy Social history: She started smoking as a teenager and quit in 1991. No alcohol history. . Physical examination: VITAL SIGNS: 98.4, 91, 32, 105/64, 92% on 4 L GENERAL: BMI 28.3, laying in bed, tired. EYES: Pupils equal. Conjunctiva normal. HEENT: External appearance of nose and ears normal, oral cavity very dry mucous membranes. NECK: JVD not raised; masses not palpable. HEART: First and second heart sounds are normal; mild edema. LUNGS: Respiratory rate increased, diminished breath sounds. ABDOMEN: Soft, nontender, liver spleen not palpable, no masses palpable. PSYCH: Able to answer questions the patient will lethargicl. NEUROLOGICAL: Cranial nerves grossly intact; no facial asymmetry, power and sensation grossly intact. EXTREMITIES: Right foot swollen and breakdown of skin on the medial aspect of the right big toe at the metacarpophalangeal joint and also breakdown of skin on the plantar surface. Dorsalis pedis cannot be felt LYMPHATICS: No lymph nodes palpable in the axilla and neck INVESTIGATIONS, reviewed in the clinical context: White count 32.3 hemoglobin 8.2 platelets 490 left shift potassium 4.1 bun 81 creatinine 1.22, glucose 737 albumin 2.3 Serum acetone negative EKG tracing personally reviewed by me-atrial flutter with [address] segment changes in anterior leads Chest x-ray film personally reviewed by me-fluid in the fissure, possible infiltrate Assessment: -Patient states she hurt her foot about a week ago but changes appear to be more chronic. Has neuropathic in the foot. Breakdown of skin down to the bone on the medial aspect of the right MCP joint. X-ray of the foot is suggestive of some gas and this could be gas gangrene. -Bilateral pneumonia suspect gram-negative organism -Element of CHF cannot be ruled out -Diabetes mellitus type 2, chronically insulin, uncontrolled -Essential hypertension -Hyperlipidemia -Acute metabolic encephalopathy from sepsis, hyperglycemia -Diabetic peripheral neuropathy Plan: Patient presented drip. Consultation was made to infectious disease, vascular, cardiology. Also put on IV fluids sparingly. Accu-Cheks before. Was checked patient lithium level. Repeat lites in the morning. DVT prophylaxis. Patient started on vancomycin the ER. We will also add cefepime. Discussed with the patient.. Past Medical History Past Medical History: Diabetes Mellitus, Hyperlipidemia, Hypertension Additional Past Medical History / Comment(s): NIDDM type II, pt does not know why she is taking Lasix. History of Any Multi-Drug Resistant Organisms: None Reported Past Surgical History: No Surgical Hx Reported Additional Past Surgical History / Comment(s): D&C Past Anesthesia/Blood Transfusion Reactions: No Reported Reaction Past Psychological History: Depression Smoking Status: Former smoker Past Alcohol Use History: None Reported Past Drug Use History: None Reported - Past Family History Mother Additional Family Medical History / Comment(s): Mother of a [place] of a stroke in her 70s. Father Family Medical History: Neurologic Disorder Additional Family Medical History / Comment(s): Father had parkinson's disease. Medications and Allergies Home Medications Medication Instructions Recorded Confirmed Type Atorvastatin [Lipitor] 40 mg PO HS #30 tab 09/05/18 03/27/20 Rx Insulin Glargine,Hum.rec.anlog 30 unit SQ HS 03/27/20 03/27/20 History [Basaglar Kwikpen U-100] [place] Carbonate 300 mg PO DAILY 03/27/20 03/27/20 History Multivitamins, Thera [Multivitamin 1 tab PO DAILY 03/27/20 03/27/20 History (formulary)] amLODIPine [Norvasc] 10 mg PO DAILY 03/27/20 03/27/20 History busPIRone HCl [Buspar] 10 mg PO BID 03/27/20 03/27/20 History fluvoxaMINE MALEATE [Luvox] 25 mg PO DAILY 03/27/20 03/27/20 History lamoTRIgine [LaMICtal] 100 mg PO DAILY 03/27/20 03/27/20 History Allergies Allergy/AdvReac Type Severity Reaction Status Date / Time cephalexin [From Keflex] Allergy Rash/Hives Verified 03/27/20 10:34 Physical Exam Vitals: Vital Signs Temp Pulse Resp BP Pulse Ox 03/27/20 11:15 87 20 102/61 93 L 03/27/20 10:27 98.4 F 91 32 H 105/64 92 L Intake and Output 03/26/20 03/27/20 03/27/20 22:59 06:59 14:59 Other: Weight 74.843 kg Results CBC & Chem 7: 03/27/20 10:32 03/27/20 10:32 Labs: Abnormal Lab Results - Last 24 Hours (Table) 03/27/20 03/27/20 03/27/20 Range/Units 10:32 10:32 10:32 WBC 32.3 H (3.8-10.6) k/uL RBC 2.96 L (3.80-5.40) m/uL Hgb 8.2 L (11.4-16.0) gm/dL Hct 26.6 L (34.0-46.0) % MCHC 30.7 L (31.0-37.0) g/dL RDW 16.1 H (11.5-15.5) % Plt Count 490 H (150-450) k/uL Neutrophils # 30.7 H (1.3-7.7) k/uL Lymphocytes # 0.5 L (1.0-4.8) k/uL VBG HCO3 20 L (24-28) mmol/L Sodium 131 L (137-145) mmol/L Carbon Dioxide 17 L (22-30) mmol/L BUN 81 H (7-17) mg/dL Creatinine 1.22 H (0.52-1.04) mg/dL Glucose 737 H* (74-99) mg/dL POC Glucose (mg/dL) (75-99) mg/dL Calcium 8.3 L (8.4-10.2) mg/dL Alkaline Phosphatase 230 H (38-126) U/L Total Protein 4.9 L (6.3-8.2) g/dL Albumin 2.3 L (3.5-5.0) g/dL 03/27/20 03/27/20 Range/Units 12:26 13:40 WBC (3.8-10.6) k/uL RBC (3.80-5.40) m/uL Hgb (11.4-16.0) gm/dL Hct (34.0-46.0) % MCHC (31.0-37.0) g/dL RDW (11.5-15.5) % Plt Count (150-450) k/uL Neutrophils # (1.3-7.7) k/uL Lymphocytes # (1.0-4.8) k/uL VBG HCO3 (24-28) mmol/L Sodium (137-145) mmol/L Carbon Dioxide (22-30) mmol/L BUN (7-17) mg/dL Creatinine (0.52-1.04) mg/dL Glucose (74-99) mg/dL POC Glucose (mg/dL) >600 H >600 H (75-99) mg/dL Calcium (8.4-10.2) mg/dL Alkaline Phosphatase (38-126) U/L Total Protein (6.3-8.2) g/dL Albumin (3.5-5.0) g/dL
[2020-03-27 15:02] LABS: Glucose,Whole Blood >600 mg/dL (75-99)
[2020-03-27 15:48] LABS: Glucose,Whole Blood 593 mg/dL (75-99)
[2020-03-27] MEDS: LITHIUM CARBONATE 300 MG CAP PO SCH (16:09)
[2020-03-27] MEDS: busPIRone HCl 10 MG TAB PO SCH ×2 (16:09→20:58)
[2020-03-27] MEDS: ENOXAPARIN 40 MG/0.4 ML SYRINGE SQ SCH (16:09)
[2020-03-27] MEDS: CEFEPIME 1 GM in SODIUM CHLORIDE 0.9% 50 ML IVPB SCH ×2 (16:10→20:59)
[2020-03-27] MEDS: amLODIPine 10 MG TAB PO SCH (16:10)
[2020-03-27] MEDS: INSULIN ASPART (NovoLOG) 100 UNIT/ML VIAL SQ SCH ×3 (16:10→20:49)
[2020-03-27] MEDS: lamoTRIgine 100 MG TAB PO SCH (16:10)
[2020-03-27] MEDS: LACTATED RINGERS 1,000 ML IV SCH (16:16)
[2020-03-27 16:30] LABS: Potassium 3.5 mmol/L (3.5-5.1)
[2020-03-27] MEDS: ALPRAZolam 0.25 MG TAB PO PRN (16:51)
[2020-03-27 16:53] LABS: Glucose,Whole Blood 575 mg/dL (75-99)
[2020-03-27] MEDS: SODIUM CHLORIDE 0.9% 1,000 ML IV SCH (17:36)
[2020-03-27 17:49] LABS: Glucose,Whole Blood 509 mg/dL (75-99)
[2020-03-27] MEDS ORDERED: Potassium Replacement Protocol 1 EACH MISC MISCELLANE PRN (18:01)
[2020-03-27] MEDS ORDERED: Magnesium Replacement Protocol 1 EACH MISC MISCELLANE PRN (18:02)
[2020-03-27] MEDS ORDERED: SODIUM CHLORIDE 0.9% 1,000 ML IV SCH (18:15)
[2020-03-27] MEDS: POTASSIUM CHLORIDE ER 20 MEQ TAB.ER PO SCH ×2 (18:15→18:50)
--- NOTE | 2020-03-27 18:33 | P.GSCN ---
History of Present Illness History of present illness: 59-year-old white female, patient came with history of 4 cellulitis of the right lower extremity with draining pus from the open wound dorsal aspect of the right foot with multiple ulcer on the plantar aspect and and on the toes. Patient has history of 4 hypertension diabetes and depression x-ray of the foot shows a there is some trace emphysema at the distal end of the tibia and fibula suggestive of infectious etiology. Hypertension but is 727 a white cell count is 32.3 Neck examination neck is supple no bruit appreciated Chest first and second sound present but sound are diminished bilateral Abdomen soft nontender femorals are 1+ PTDP by the Doppler patient has a marked cellulitis of the right lower extremity open wound noted noted on the dorsal aspect with the draining pus to the deep culture Plan is patient is on insulin drip, patient and IV antibiotic we will discuss with the family most likely patient will be needing a major amputation follow with you thank you Past Medical History Past Medical History: Diabetes Mellitus, Hyperlipidemia, Hypertension Additional Past Medical History / Comment(s): IDDM type II, R foot/ankle wound, denies any neuropathy, past pneumonia with sepsis. History of Any Multi-Drug Resistant Organisms: None Reported Past Surgical History: No Surgical Hx Reported Additional Past Surgical History / Comment(s): D&C Past Anesthesia/Blood Transfusion Reactions: No Reported Reaction Smoking Status: Former smoker - Past Family History Mother Family Medical History: CVA/TIA, Myocardial Infarction ([place]) Additional Family Medical History / Comment(s): Mother in her 70s. Father Family Medical History: Neurologic Disorder Additional Family Medical History / Comment(s): Father had parkinson's disease. Medications and Allergies Home Medications Medication Instructions Recorded Confirmed Type Atorvastatin [Lipitor] 40 mg PO HS #30 tab 09/05/18 03/27/20 Rx Insulin Glargine,Hum.rec.anlog 30 unit SQ HS 03/27/20 03/27/20 History [Basaglar Sydnee U-100] [place] Carbonate 300 mg PO DAILY 03/27/20 03/27/20 History Multivitamins, Thera [Multivitamin 1 tab PO DAILY 03/27/20 03/27/20 History (formulary)] amLODIPine [Norvasc] 10 mg PO DAILY 03/27/20 03/27/20 History busPIRone HCl [Buspar] 10 mg PO BID 03/27/20 03/27/20 History fluvoxaMINE MALEATE [Luvox] 25 mg PO DAILY 03/27/20 03/27/20 History lamoTRIgine [LaMICtal] 100 mg PO DAILY 03/27/20 03/27/20 History Allergies Allergy/AdvReac Type Severity Reaction Status Date / Time cephalexin [From Keflex] Allergy Rash/Hives Verified 03/27/20 10:34 Surgical - Exam Vital Signs Temp Pulse Resp BP Pulse Ox 98.4 F 91 32 H 105/64 92 L 03/27/20 10:27 03/27/20 10:27 03/27/20 10:27 03/27/20 10:27 03/27/20 10:27 Results - Labs 03/27/20 10:32 03/27/20 15:49 Abnormal Lab Results - Last 24 Hours (Table) 03/27/20 03/27/20 03/27/20 Range/Units 10:32 10:32 10:32 WBC 32.3 H (3.8-10.6) k/uL RBC 2.96 L (3.80-5.40) m/uL Hgb 8.2 L (11.4-16.0) gm/dL Hct 26.6 L (34.0-46.0) % MCHC 30.7 L (31.0-37.0) g/dL RDW 16.1 H (11.5-15.5) % Plt Count 490 H (150-450) k/uL Neutrophils # 30.7 H (1.3-7.7) k/uL Lymphocytes # 0.5 L (1.0-4.8) k/uL VBG HCO3 20 L (24-28) mmol/L Sodium 131 L (137-145) mmol/L Carbon Dioxide 17 L (22-30) mmol/L BUN 81 H (7-17) mg/dL Creatinine 1.22 H (0.52-1.04) mg/dL Glucose 737 H* (74-99) mg/dL POC Glucose (mg/dL) (75-99) mg/dL Calcium 8.3 L (8.4-10.2) mg/dL Phosphorus (2.5-4.5) mg/dL Alkaline Phosphatase 230 H (38-126) U/L Total Protein 4.9 L (6.3-8.2) g/dL Albumin 2.3 L (3.5-5.0) g/dL 03/27/20 03/27/20 03/27/20 Range/Units 12:26 13:40 15:01 WBC (3.8-10.6) k/uL RBC (3.80-5.40) m/uL Hgb (11.4-16.0) gm/dL Hct (34.0-46.0) % MCHC (31.0-37.0) g/dL RDW (11.5-15.5) % Plt Count (150-450) k/uL Neutrophils # (1.3-7.7) k/uL Lymphocytes # (1.0-4.8) k/uL VBG HCO3 (24-28) mmol/L Sodium (137-145) mmol/L Carbon Dioxide (22-30) mmol/L BUN (7-17) mg/dL Creatinine (0.52-1.04) mg/dL Glucose (74-99) mg/dL POC Glucose (mg/dL) >600 H >600 H >600 H (75-99) mg/dL Calcium (8.4-10.2) mg/dL Phosphorus (2.5-4.5) mg/dL Alkaline Phosphatase (38-126) U/L Total Protein (6.3-8.2) g/dL Albumin (3.5-5.0) g/dL 03/27/20 03/27/20 03/27/20 Range/Units 15:43 15:49 15:49 WBC (3.8-10.6) k/uL RBC (3.80-5.40) m/uL Hgb (11.4-16.0) gm/dL Hct (34.0-46.0) % MCHC (31.0-37.0) g/dL RDW (11.5-15.5) % Plt Count (150-450) k/uL Neutrophils # (1.3-7.7) k/uL Lymphocytes # (1.0-4.8) k/uL VBG HCO3 (24-28) mmol/L Sodium 133 L (137-145) mmol/L Carbon Dioxide 18 L (22-30) mmol/L BUN 77 H (7-17) mg/dL Creatinine 1.35 H (0.52-1.04) mg/dL Glucose 555 H* (74-99) mg/dL POC Glucose (mg/dL) 593 H (75-99) mg/dL Calcium (8.4-10.2) mg/dL Phosphorus 2.3 L (2.5-4.5) mg/dL Alkaline Phosphatase (38-126) U/L Total Protein (6.3-8.2) g/dL Albumin (3.5-5.0) g/dL 03/27/20 03/27/20 Range/Units 16:48 17:48 WBC (3.8-10.6) k/uL RBC (3.80-5.40) m/uL Hgb (11.4-16.0) gm/dL Hct (34.0-46.0) % MCHC (31.0-37.0) g/dL RDW (11.5-15.5) % Plt Count (150-450) k/uL Neutrophils # (1.3-7.7) k/uL Lymphocytes # (1.0-4.8) k/uL VBG HCO3 (24-28) mmol/L Sodium (137-145) mmol/L Carbon Dioxide (22-30) mmol/L BUN (7-17) mg/dL Creatinine (0.52-1.04) mg/dL Glucose (74-99) mg/dL POC Glucose (mg/dL) 575 H 509 H (75-99) mg/dL Calcium (8.4-10.2) mg/dL Phosphorus (2.5-4.5) mg/dL Alkaline Phosphatase (38-126) U/L Total Protein (6.3-8.2) g/dL Albumin (3.5-5.0) g/dL Microbiology - Last 24 Hours (Table) 03/27/20 10:57 Gram Stain - Preliminary Foot - Right Wound Culture - Preliminary Diabetes panel 03/27/20 03/27/20 Range/Units 10:32 15:49 Sodium 131 L 133 L (137-145) mmol/L Potassium 4.1 3.5 (3.5-5.1) mmol/L Chloride 101 104 (98-107) mmol/L Carbon Dioxide 17 L 18 L (22-30) mmol/L BUN 81 H 77 H (7-17) mg/dL Creatinine 1.22 H 1.35 H (0.52-1.04) mg/dL Glucose 737 H* 555 H* (74-99) mg/dL Calcium 8.3 L (8.4-10.2) mg/dL AST 20 (14-36) U/L ALT 18 (4-34) U/L Alkaline Phosphatase 230 H (38-126) U/L Total Protein 4.9 L (6.3-8.2) g/dL Albumin 2.3 L (3.5-5.0) g/dL Calcium panel 03/27/20 03/27/20 Range/Units 10:32 15:49 Calcium 8.3 L (8.4-10.2) mg/dL Phosphorus 2.3 L (2.5-4.5) mg/dL Albumin 2.3 L (3.5-5.0) g/dL Pituitary panel 03/27/20 03/27/20 Range/Units 10:32 15:49 Sodium 131 L 133 L (137-145) mmol/L Potassium 4.1 3.5 (3.5-5.1) mmol/L Chloride 101 104 (98-107) mmol/L Carbon Dioxide 17 L 18 L (22-30) mmol/L BUN 81 H 77 H (7-17) mg/dL Creatinine 1.22 H 1.35 H (0.52-1.04) mg/dL Glucose 737 H* 555 H* (74-99) mg/dL Calcium 8.3 L (8.4-10.2) mg/dL Adrenal panel 03/27/20 03/27/20 Range/Units 10:32 15:49 Sodium 131 L 133 L (137-145) mmol/L Potassium 4.1 3.5 (3.5-5.1) mmol/L Chloride 101 104 (98-107) mmol/L Carbon Dioxide 17 L 18 L (22-30) mmol/L BUN 81 H 77 H (7-17) mg/dL Creatinine 1.22 H 1.35 H (0.52-1.04) mg/dL Glucose 737 H* 555 H* (74-99) mg/dL Calcium 8.3 L (8.4-10.2) mg/dL Total Bilirubin 0.5 (0.2-1.3) mg/dL AST 20 (14-36) U/L ALT 18 (4-34) U/L Alkaline Phosphatase 230 H (38-126) U/L Total Protein 4.9 L (6.3-8.2) g/dL Albumin 2.3 L (3.5-5.0) g/dL
[2020-03-27 18:51] LABS: Glucose,Whole Blood 447 mg/dL (75-99)
--- NOTE | 2020-03-27 19:44 | PN ---
PROGRESS NOTE The patient was seen in her room. I had got more history from her . The patient has this chronic wound on the dorsal aspect of the foot and plantar aspect of the foot for the last 6 months. The patient has been operated at [facility] in the past and has been has been taking care of her wound at the home. The patient has an open wound at the dorsal aspect of the foot at the base of the metatarsal phalange of the big toe, 3 x 2 cm with pouring of the pus and also patient has an ulcer on the plantar aspect of the foot which draining a lot of pus. The patient has marked fluctuation of the ankle suggestive of an infection spreading to the ankle and the right lower extremity with marked cellulitis and pain. X-ray showed possible gas-forming organism. I have discussed with the in detail. The patient will be needing a major amputation. Most likely, we will do the disarticulation of the ankle first and let this infection subside then possible below the knee or above the knee depending on the circulation. Her white cell count is 32,000 and the patient blood sugar is high. Patient is on insulin drip. Her blood sugar is 727. We will discuss with the Internal Medicine and Infectious Disease. Keep her n.p.o. midnight and possible she will need surgery tomorrow. MMODL / IJN: [id number] /
[2020-03-27 19:48] LABS: Glucose,Whole Blood 421 mg/dL (75-99)
[2020-03-27 20:48] LABS: Glucose,Whole Blood 358 mg/dL (75-99)
[2020-03-27] MEDS: ATORVASTATIN 40 MG TAB PO SCH (20:58)
[2020-03-27] MEDS ORDERED: INSULIN DETEMIR (LEVEMIR) 100 UNIT/ML SYR SQ SCH (21:00)
[2020-03-27 21:08] LABS: Magnesium 2.4 mg/dL (1.6-2.3); Phosphorus 1.7 mg/dL (2.5-4.5); Potassium 3.6 mmol/L (3.5-5.1)
[2020-03-27 22:46] LABS: Glucose,Whole Blood 256 mg/dL (75-99)
[2020-03-28] MEDS ORDERED: VANCOMYCIN 1,250 MG in SODIUM CHLORIDE 0.9% 250 ML IVPB SCH ×2
[2020-03-28 03:46] LABS: Glucose,Whole Blood 155 mg/dL (75-99)
[2020-03-28 03:46] LABS: Glucose,Whole Blood 137 mg/dL (75-99)
[2020-03-28 04:39] LABS: Phosphorus 1.7 mg/dL (2.5-4.5); Potassium 3.9 mmol/L (3.5-5.1)
[2020-03-28 04:48] LABS: Glucose,Whole Blood 167 mg/dL (75-99)
[2020-03-28 06:47] LABS: Glucose,Whole Blood 158 mg/dL (75-99)
[2020-03-28] MEDS: INSULIN REGULAR 100 UNIT in SODIUM CHLORIDE 0.9% 100 ML IV SCH (06:48)
--- NOTE | 2020-03-28 06:59 | P.CONS ---
History of Present Illness - Reason for Consult Consult date: 03/27/20 right diabetic foot infection Requesting physician: Olaf Rosales - Chief Complaint high blood sugar and right foot wounds x weeks - History of Present Illness Patient is a 59-year-old female with a past medical history difficult for diabetes mellitus presenting to the hospital with a chief complaints of high blood sugar patient was noticed to have high blood sugars on home glucose meter as it would not radiate patient received 13 units of insulin prior to pr esentation to the hospital patient also complaining of 4 chronic nonhealing wound to the right foot but not specifically for how long she has it mentioned a couple of weeks and the has been taking care of it at home patient did have underlying diabetic neuropathy has specific and pain to the right foot wound area patient did have some foul-smelling drainage from it though I did have a swelling and redness of the right foot patient denies high-grade fever or chills with the symptom the patient has been evaluated by the ER physician on arrival to the ER the patient has been afebrile patient did have white count of 32,000 with a sed rate of 111 creatinine was 1.39 serum acetone was negative patient did have local wound cultures obtained which are currently pending blood culture has been obtained patient has been started on Unasyn and vancomycin patient has tolerated her Unasyn but she did have a history of for cephalexin allergy infectious disease has been consulted for further management of antibiotic therapy patient also have x-rays of the foot and ankle did show diffuse severe soft tissue edema correlate for cellulitis and there was no destructive changes seen on the x-ray. Review of Systems Positive point has been mentioned in HPI rest of the systems are negative Past Medical History Past Medical History: Diabetes Mellitus, Hyperlipidemia, Hypertension Additional Past Medical History / Comment(s): NIDDM type II, pt does not know why she is taking Lasix. History of Any Multi-Drug Resistant Organisms: None Reported Past Surgical History: No Surgical Hx Reported Additional Past Surgical History / Comment(s): D&C Past Anesthesia/Blood Transfusion Reactions: No Reported Reaction Past Psychological History: Depression Smoking Status: Former smoker Past Alcohol Use History: None Reported Past Drug Use History: None Reported - Past Family History Mother Additional Family Medical History / Comment(s): Mother of a [place] of a stroke in her 70s. Father Family Medical History: Neurologic Disorder Additional Family Medical History / Comment(s): Father had parkinson's disease. Medications and Allergies Home Medications Medication Instructions Recorded Confirmed Type Atorvastatin [Lipitor] 40 mg PO HS #30 tab 09/05/18 03/27/20 Rx Insulin Glargine,Hum.rec.anlog 30 unit SQ HS 03/27/20 03/27/20 History [Basaglar Kwikpen U-100] [place] Carbonate 300 mg PO DAILY 03/27/20 03/27/20 History Multivitamins, Thera [Multivitamin 1 tab PO DAILY 03/27/20 03/27/20 History (formulary)] amLODIPine [Norvasc] 10 mg PO DAILY 03/27/20 03/27/20 History busPIRone HCl [Buspar] 10 mg PO BID 03/27/20 03/27/20 History fluvoxaMINE MALEATE [Luvox] 25 mg PO DAILY 03/27/20 03/27/20 History lamoTRIgine [LaMICtal] 100 mg PO DAILY 03/27/20 03/27/20 History Allergies Allergy/AdvReac Type Severity Reaction Status Date / Time cephalexin [From Keflex] Allergy Rash/Hives Verified 03/27/20 10:34 Physical Exam Vitals: Vital Signs Temp Pulse Resp BP Pulse Ox 03/27/20 11:15 87 20 102/61 93 L 03/27/20 10:27 98.4 F 91 32 H 105/64 92 L Intake and Output 03/26/20 03/27/20 03/27/20 22:59 06:59 14:59 Other: Weight 74.843 kg GENERAL DESCRIPTION: Middle-aged female lying in bed, no distress. No tachypnea or accessory muscle of respiration use. HEENT: Shows Pallor , no scleral icterus. Oral mucous membrane is dry. NECK: Trachea central, no thyromegaly. LUNGS: Unlabored breathing. Clear to auscultation anteriorly. No wheeze or crackle. HEART: S1, S2, regular rate and rhythm. ABDOMEN: Soft, no tenderness , guarding or rigidity EXTREMITIES: Right foot did have significant swelling and redness with a wound on the dorsum as well as the plantar aspect mostly around the first metatarsal phalangeal joint area with some purulent drainage. SKIN: No rash, no masses palpable. NEUROLOGICAL: The patient is awake, alert, oriented x3, mood and affect normal. Results CBC & Chem 7: 03/27/20 10:32 03/28/20 00:15 Labs: Abnormal Lab Results - Last 24 Hours (Table) 03/27/20 03/27/20 03/27/20 Range/Units 10:32 10:32 10:32 WBC 32.3 H (3.8-10.6) k/uL RBC 2.96 L (3.80-5.40) m/uL Hgb 8.2 L (11.4-16.0) gm/dL Hct 26.6 L (34.0-46.0) % MCHC 30.7 L (31.0-37.0) g/dL RDW 16.1 H (11.5-15.5) % Plt Count 490 H (150-450) k/uL Neutrophils # 30.7 H (1.3-7.7) k/uL Lymphocytes # 0.5 L (1.0-4.8) k/uL VBG HCO3 20 L (24-28) mmol/L Sodium 131 L (137-145) mmol/L Carbon Dioxide 17 L (22-30) mmol/L BUN 81 H (7-17) mg/dL Creatinine 1.22 H (0.52-1.04) mg/dL Glucose 737 H* (74-99) mg/dL POC Glucose (mg/dL) (75-99) mg/dL Calcium 8.3 L (8.4-10.2) mg/dL Alkaline Phosphatase 230 H (38-126) U/L Total Protein 4.9 L (6.3-8.2) g/dL Albumin 2.3 L (3.5-5.0) g/dL 03/27/20 03/27/20 Range/Units 12:26 13:40 WBC (3.8-10.6) k/uL RBC (3.80-5.40) m/uL Hgb (11.4-16.0) gm/dL Hct (34.0-46.0) % MCHC (31.0-37.0) g/dL RDW (11.5-15.5) % Plt Count (150-450) k/uL Neutrophils # (1.3-7.7) k/uL Lymphocytes # (1.0-4.8) k/uL VBG HCO3 (24-28) mmol/L Sodium (137-145) mmol/L Carbon Dioxide (22-30) mmol/L BUN (7-17) mg/dL Creatinine (0.52-1.04) mg/dL Glucose (74-99) mg/dL POC Glucose (mg/dL) >600 H >600 H (75-99) mg/dL Calcium (8.4-10.2) mg/dL Alkaline Phosphatase (38-126) U/L Total Protein (6.3-8.2) g/dL Albumin (3.5-5.0) g/dL Assessment and Plan Assessment: 1-patient with extensive right diabetic foot infection in this patient who did have wound on the dorsum as well as the plantar aspect of the right foot with so me purulent drainage and diffuse swelling and redness will need to cover for polymicrobial jim usually associated with these types of infection 2-patient with cephalexin allergy limiting the number of antibiotic that can be safely used however has tolerated Unasyn without any problem (1) Diabetic foot Current Visit: Yes Status: Acute Code(s): E11.8 - TYPE 2 DIABETES MELLITUS WITH UNSPECIFIED COMPLICATIONS SNOMED Code(s): 726068246 (2) Cellulitis of right foot Current Visit: Yes Status: Acute Code(s): L03.115 - CELLULITIS OF RIGHT LOWER LIMB SNOMED Code(s): 319668678 Plan: 1-Unasyn 3 g every 6 hours 2-vancomycin pharmacy to dose her with a target trough of 15 while watching her kidney function and Vanco trough closely. 3-await vascular surgery evaluation and possible debridement versus amputation 4-dry protective dressing to the wounds at this point We will follow on clinical condition and cultures to further adjust medication if needed Thank you for this consultation we will follow the patient along with you Time with Patient: Greater than 30
[2020-03-28 07:03] LABS: Calcium 7.8 mg/dL (8.4-10.2); Magnesium 2.3 mg/dL (1.6-2.3)
[2020-03-28] MEDS: LACTATED RINGERS 1,000 ML IV SCH ×3 (07:07→11:53)
[2020-03-28] MEDS: SODIUM CHLORIDE 0.9% 1,000 ML IV SCH ×4 (07:07→16:12)
[2020-03-28] MEDS: INSULIN ASPART (NovoLOG) 100 UNIT/ML VIAL SQ SCH ×6 (07:19→20:15)
[2020-03-28 07:50] LABS: Glucose,Whole Blood 168 mg/dL (75-99)
[2020-03-28] MEDS: ENOXAPARIN 40 MG/0.4 ML SYRINGE SQ SCH (08:21)
[2020-03-28] MEDS: AMPICILLIN-SULBACTAM 3 GM in SODIUM CHLORIDE 0.9% 100 ML IVPB SCH ×3 (08:21→23:34)
[2020-03-28] MEDS: MULTIVITAMINS, THERA 1 EACH TAB PO SCH (08:25)
[2020-03-28] MEDS: amLODIPine 10 MG TAB PO SCH (08:25)
[2020-03-28] MEDS: lamoTRIgine 100 MG TAB PO SCH (08:25)
[2020-03-28] MEDS: busPIRone HCl 10 MG TAB PO SCH ×2 (08:25→20:15)
[2020-03-28] MEDS: LITHIUM CARBONATE 300 MG CAP PO SCH (08:53)
[2020-03-28] MEDS: INSULIN DETEMIR (LEVEMIR) 100 UNIT/ML SYR SQ SCH ×3 (08:53→22:21)
[2020-03-28] MEDS: ONDANSETRON 4 MG/2 ML VIAL IVP PRN (09:45)
[2020-03-28 11:24] LABS: Glucose,Whole Blood 216 mg/dL (75-99)
[2020-03-28] MEDS: METOPROLOL TARTRATE 25 MG TAB PO SCH ×2 (12:01→20:15)
--- NOTE | 2020-03-28 12:03 | CT ---
EXAMINATION TYPE: CT chest angio for PE DATE OF EXAM: 03/28/2020 COMPARISON: Radiograph 03/27/2020 HISTORY: 59-year-old female Shortness of breath TECHNIQUE: Contiguous axial scanning of the chest performed with IV Contrast, patient injected with 8 0 mL of Isovue 300. Coronal/sagittal MIP reconstructions performed. CT DLP: 468.3 mGycm Automated exposure control for dose reduction was used. FINDINGS: Heart mildly enlarged without pericardial effusion. Extensive LAD calcifications are noted. Aorta normal caliber with a conventional arch vessel branching anatomy. There is extensive motion artifact and generalized anasarca change limiting assessment for lymphadeno eros. No obvious thoracic lymphadenopathy is identified though again, assessment is limited. Severe breathing motion artifacts are present. No large central pulmonary embolus is identified. Loba r and remaining branches are very limited assessment and emboli cannot be excluded on the basis of ex am, for example, refer to a segmental lingular branch, actually shifted to. Moderate right and small left pleural effusions. There is atelectatic collapse of the right middle an d right lower lobes. Additional collapse of the basilar left lower lobe. Possible underlying hiatal hernia versus circumferential wall thickening of the distal esophagus, axi al image 97. In the upper abdomen, generalized anasarca change is demonstrated. A few loops of small bowel in the left upper quadrant demonstrate moderate circumferential wall thick ening and dilatation up to 4.2 cm. Bones: Bridging anterior spondylosis mid to lower thoracic spine. IMPRESSION: 1. SEVERE BREATHING MOTION ARTIFACTS. THE EXAM IS ESSENTIALLY NONDIAGNOSTIC FOR PULMONARY EMBOLUS BEY OND THE CENTRAL LEVEL. EMBOLI CANNOT BE EXCLUDED SUCH IN A SEGMENTAL LINGULAR BRANCH, AXIAL IMAGE 52. THIS FINDING COULD EASILY BE SECONDARY TO MOTION ARTIFACT. 2. CARDIOMEGALY WITH ANASARCA AND MODERATE RIGHT AND SMALL LEFT PLEURAL EFFUSIONS. CORRELATE FOR FLUI D OVERLOAD STATE/CHF. 3. ADJACENT COLLAPSE OF THE RIGHT MIDDLE AND RIGHT LOWER LOBES. ADDITIONAL COLLAPSE/CONSOLIDATION OF THE BASILAR LEFT LOWER LOBE. CORRELATE TO EXCLUDE UNDERLYING PNEUMONIA. 4. A COUPLE THICKENED AND DISTENDED SMALL BOWEL LOOPS PARTIALLY VISUALIZED IN THE LEFT UPPER QUADRANT MEASURING UP TO 4.2 CM. ABDOMINAL RADIOGRAPH CAN FURTHER ASSESS. 5. EITHER UNDERLYING HIATAL HERNIA VERSUS CIRCUMFERENTIAL WALL THICKENING OF THE DISTAL ESOPHAGUS. CO RRELATE FOR ANY POTENTIAL SYMPTOMS OF ESOPHAGITIS OR REFLUX. PATIENT CAN BE REFERRED FOR DIRECT VISUA LIZATION WHEN ABLE.
--- NOTE | 2020-03-28 13:28 | CDI ---
Documentation Clarification Form Date: 03/28/2020 12:54:31 PM From: Linda Acosta RN CCDS Admit Date: 03/27/2020 12:33:00 PM Patient Name: Stefany Rios Visit Number: [id number] Discharge Date: ATTENTION: The Clinical Documentation Specialists (CDI) and [facility] Coding Staff appreciate your assistance in clarifying documentation. Please respond to the clarification below the line at the bottom and electronically sign. The CDI & [facility] Coding staff will review the response and follow-up if needed. Please note: Queries are made part of the Legal Health Record. If you have any questions, please contact the author of this message via ITS. Dr. Olaf Rosales Patient was admitted with sepsis, possible gram-negative pneumonia and foot wound. Documented in the H&P 03/27 History/Risk Factors: 59-year old female presents to the ED via EMS lethargic and a glucose of 737. Medical history HLD, DM, Diabetic neuropathy and open foot wound. Clinical Indicators: Lab findings: 03/27 CXR Bilateral pleural effusions with cardiomegaly and bibasilar infiltrate. Diffuse interstitial pattern. 03/27 H & P Lung Examination: Respiratory rate increased, diminished breath sounds. Vital Signs: 03/27 - B/P 105/64, HR 91, T 98.4, RR 32, SpO2 92% 4L nasal cannula; 03/28- B/P 119/55, HR 93, T 98.4, RR 22, SpO2 93% 6L nasal cannula Treatment: 03/27 Ampicillin Ivpb Q 6 hrs, Nasal cannula 4 to 6L Clinical significance of diagnostic testing and treatment cannot be assumed or coded without physician documentation of significance if any. Please clarify oxygen per nasal cannula. Acute respiratory failure Acute respiratory insufficiency Other, please specify Unable to determine (Last Revision: January 2018) Acute hypoxic respiratory failure MTDD
--- NOTE | 2020-03-28 15:07 | XR ---
EXAMINATION TYPE: XR chest 1V DATE OF EXAM: 03/28/2020 COMPARISON: 03/27/2020 HISTORY: 59 year-old female post thoracentesis TECHNIQUE: Single frontal view of the chest is obtained. FINDINGS: Heart mildly enlarged. Diffuse interstitial density. Continued small to moderate left pleural effusio n. Improvement in the previous right pleural effusion. Persistent patchy opacity. IMPRESSION: 1. Cardiomegaly and residual mild interstitial edema, improved from 03/27/2020. 2. Continued small to moderate left pleural effusion with adjacent atelectasis and/or consolidation. 3. Right pleural effusion has improved though there is residual patchy pulmonary edema or atelectasis at the right base. No appreciable pneumothorax.
--- NOTE | 2020-03-28 15:16 | P.CNPUL ---
History of Present Illness Consult date: 03/28/20 Requesting physician: Olaf Rosales Reason for consult: dyspnea, pleural effusion Chief complaint: Bilateral pleural effusions, right greater than left, right leg cellulitis History of present illness: 59-year-old white female patient with past medical history significant for hypertension, hyperlipidemia, diabetes mellitus with diabetic neuropathy, depression, previous history of pneumonia, former smoker, who came into the emergency department on 03/27/2020 per EMS for evaluation of significant hyperglycemia, that would not read on the glucometer, weakness, erythema and edema involving the nonhealing wound to the right foot, that apparently also had some foul-smelling drainage. X-ray of the foot shows trace emphysema at the distal end of the tibia and fibula suggestive of infectious etiology. Patient was started on IV antibiotics, insulin infusion. ID service and vascular surgery service are on the case. Patient is scheduled for possible amputation of the right foot tomorrow. Admission blood work showed significant leukocytosis with white blood cell count of 32.3, hemoglobin is 8.2, platelet count is 490, Coreg patient profile is within normal limits, sodium is 134, potassium is 3.6, chloride is 106, CO2 is 19, BUN is 81, creatinine is 1.29 from previously noted normal renal function, on admission serum glucose was 737, is down to 140 on today's labs, proBNP was 3210, serum acetone was negative, coronavirus PCR was negative. Troponin was less than 0.012. Chest x-ray on admission showed bilateral pleural effusions with cardiomegaly and bibasilar infiltrates. There is diffuse interstitial pattern, no pneumothorax. CT angios chest for pulmonary embolism was obtained to rule out PE, and was nondiagnostic for pulmonary embolus be on the central level. Additional cardiomegaly with anasarca, moderate right and small left plural effusion testing fluid overload and CHF. There was adjacent collapse of the right middle and right lower lobe and additional collapse and consolidation of the basilar left lower lobe. Current antibiotic coverage is with Unasyn and vancomycin, one blood culture set collected on 03/27/2020 showed Staphylococcus aureus, and group B strep agalactiae, wound cultures from right foot show many gram-positive cocci, moderate PMNs, many gram-negative bacilli and few gram-positive bacilli, final cultures pending. Patient has been afebrile, she is on 6 L of oxygen right now, her pulse ox is 93%, she is extremely weak and appears to be debilitated, her right foot is wrapped, and is draining through the dressings serous fluid. We spoke to her about her chest x-ray and CTA chest findings and spoke to her about possibility of draining the right pleural effusion and patient is agreeable to proceed. Her renal function slightly worsened on today's labs, BUN is 81, and creatinine is 1.31. No diuretics on board, cardiology consultation is pending, an echocardiogram has already been ordered. Review of Systems All systems: negative Constitutional: Reports fatigue, Reports malaise, Reports weakness, Denies chills, Denies fever Eyes: denies blurred vision, denies pain Ears, nose, mouth and throat: Denies headache, Denies sore throat Cardiovascular: Denies chest pain, Denies shortness of breath Respiratory: Reports dyspnea, Denies cough Gastrointestinal: Denies abdominal pain, Denies diarrhea, Denies nausea, Denies vomiting Genitourinary: Denies dysuria, Denies hematuria Musculoskeletal: Denies myalgias Musculoskeletal: right: foot pain, foot swelling Integumentary: Denies pruritus, Denies rash Neurological: Denies numbness, Denies weakness Psychiatric: Denies anxiety, Denies depression Endocrine: Reports fatigue, Reports high blood sugars, Denies weight change Past Medical History Past Medical History: Diabetes Mellitus, Hyperlipidemia, Hypertension Additional Past Medical History / Comment(s): NIDDM type II, pt does not know why she is taking Lasix. History of Any Multi-Drug Resistant Organisms: None Reported Past Surgical History: No Surgical Hx Reported Additional Past Surgical History / Comment(s): D&C Past Anesthesia/Blood Transfusion Reactions: No Reported Reaction Past Psychological History: Depression Smoking Status: Former smoker Past Alcohol Use History: None Reported Past Drug Use History: None Reported - Past Family History Mother Family Medical History: CVA/TIA, Myocardial Infarction ([place]) Additional Family Medical History / Comment(s): Mother of a [place] of a stroke in her 70s. Father Family Medical History: Neurologic Disorder Additional Family Medical History / Comment(s): Father had parkinson's disease. Medications and Allergies Home Medications Medication Instructions Recorded Confirmed Type Atorvastatin [Lipitor] 40 mg PO HS #30 tab 09/05/18 03/27/20 Rx Insulin Glargine,Hum.rec.anlog 30 unit SQ HS 03/27/20 03/27/20 History [Basaglemmanuel Miramontespen U-100] [place] Carbonate 300 mg PO DAILY 03/27/20 03/27/20 History Multivitamins, Thera [Multivitamin 1 tab PO DAILY 03/27/20 03/27/20 History (formulary)] amLODIPine [Norvasc] 10 mg PO DAILY 03/27/20 03/27/20 History busPIRone HCl [Buspar] 10 mg PO BID 03/27/20 03/27/20 History fluvoxaMINE MALEATE [Luvox] 25 mg PO DAILY 03/27/20 03/27/20 History lamoTRIgine [LaMICtal] 100 mg PO DAILY 03/27/20 03/27/20 History Allergies Allergy/AdvReac Type Severity Reaction Status Date / Time cephalexin [From Keflex] Allergy Rash/Hives Verified 03/27/20 10:34 Physical Exam Vitals: Vital Signs Temp Pulse Pulse Resp BP Pulse Ox 03/28/20 12:00 98.4 F 76 93 22 119/55 93 L 03/28/20 08:00 97.9 F 76 80 18 104/57 94 L 03/28/20 04:00 98.6 F 80 80 18 101/57 93 L 03/28/20 00:00 98.1 F 82 22 106/56 95 03/27/20 21:05 98.5 F 87 22 108/64 94 L 03/27/20 16:00 98.4 F 85 24 108/58 92 L Intake and Output 03/27/20 03/28/20 03/28/20 22:59 06:59 14:59 Intake Total 97.016 13.984 Balance 97.016 13.984 Intake: IV 10 Invasive Line 2 10 Intake, IV Titration 87.016 13.984 Amount Insulin Regular 100 unit 87.016 13.984 In Sodium Chloride 0.9% 100 ml @ 0.1 UNITS/KG/HR 7.559 mls/hr IV .[id number] [facility] Rx#:[id number] Other: # Voids 2 Weight 74.843 kg 35.7 kg 35.7 kg GENERAL EXAM: Alert, chronically ill-looking 59-year-old white female, that appears much older than stated age, resting in bed, quite weak, requires extensive assistance to sit up at the bedside, and she currently on 6 L of oxygen with a pulse ox of 93% HEAD: Normocephalic/atraumatic. EYES: Normal reaction of pupils, equal size. Conjunctiva pink, sclera white. NOSE: Clear with pink turbinates. THROAT: No erythema or exudates. NECK: No masses, no JVD, no thyroid enlargement, no adenopathy. CHEST: No chest wall deformity. Symmetrical expansion. LUNGS: Diminished air entry and dullness to percussion at the right lower base, with no crackles, wheeze, rhonchi CVS: Regular rate and rhythm, normal S1 and S2, no gallops, no murmurs, no rubs ABDOMEN: Soft, nontender. No hepatosplenomegaly, normal bowel sounds, no guarding or rigidity. EXTREMITIES: No clubbing, right lower extremity edema, right lower foot is wrapped with Kerlix gauze with drainage through the Kerlix gauze, no cyanosis, 2+ pulses and upper and lower extremities. MUSCULOSKELETAL: Muscle strength and tone normal. SPINE: No scoliosis or deformity SKIN: No rashes CENTRAL NERVOUS SYSTEM: Alert and oriented -3. No focal deficits, tone is normal in all 4 extremities. PSYCHIATRIC: Alert and oriented -3. Appropriate affect. Intact judgment and insight. Results - Laboratory Findings CBC and BMP: 03/27/20 10:32 03/28/20 06:09 PT/INR, D-dimer PT 10.4 sec (9.0-12.0) 03/27/20 10:32 INR 1.0 (<1.2) 03/27/20 10:32 Abnormal lab findings: Abnormal Labs 03/27/20 03/27/20 03/27/20 10:32 10:32 10:32 WBC 32.3 H RBC 2.96 L Hgb 8.2 L Hct 26.6 L MCHC 30.7 L RDW 16.1 H Plt Count 490 H Neutrophils # 30.7 H Lymphocytes # 0.5 L ESR VBG HCO3 20 L Sodium 131 L Chloride Carbon Dioxide 17 L BUN 81 H Creatinine 1.22 H Glucose 737 H* POC Glucose (mg/dL) Calcium 8.3 L Phosphorus Magnesium Alkaline Phosphatase 230 H Total Protein 4.9 L Albumin 2.3 L 03/27/20 03/27/20 03/27/20 12:26 13:40 15:01 WBC RBC Hgb Hct MCHC RDW Plt Count Neutrophils # Lymphocytes # ESR VBG HCO3 Sodium Chloride Carbon Dioxide BUN Creatinine Glucose POC Glucose (mg/dL) >600 H >600 H >600 H Calcium Phosphorus Magnesium Alkaline Phosphatase Total Protein Albumin 03/27/20 03/27/20 03/27/20 15:43 15:49 15:49 WBC RBC Hgb Hct MCHC RDW Plt Count Neutrophils # Lymphocytes # ESR 111 H VBG HCO3 Sodium 133 L Chloride Carbon Dioxide 18 L BUN 77 H Creatinine 1.35 H Glucose 555 H* POC Glucose (mg/dL) 593 H Calcium Phosphorus Magnesium Alkaline Phosphatase Total Protein Albumin 03/27/20 03/27/20 03/27/20 15:49 16:48 17:48 WBC RBC Hgb Hct MCHC RDW Plt Count Neutrophils # Lymphocytes # ESR VBG HCO3 Sodium Chloride Carbon Dioxide BUN Creatinine Glucose POC Glucose (mg/dL) 575 H 509 H Calcium Phosphorus 2.3 L Magnesium Alkaline Phosphatase Total Protein Albumin 03/27/20 03/27/20 03/27/20 18:48 19:46 20:41 WBC RBC Hgb Hct MCHC RDW Plt Count Neutrophils # Lymphocytes # ESR VBG HCO3 Sodium 134 L Chloride Carbon Dioxide 19 L BUN 81 H Creatinine 1.29 H Glucose 320 H POC Glucose (mg/dL) 447 H 421 H Calcium Phosphorus 1.7 L Magnesium 2.4 H Alkaline Phosphatase Total Protein Albumin 03/27/20 03/27/20 03/28/20 20:47 22:44 00:15 WBC RBC Hgb Hct MCHC RDW Plt Count Neutrophils # Lymphocytes # ESR VBG HCO3 Sodium 136 L Chloride 108 H Carbon Dioxide 20 L BUN 80 H Creatinine 1.39 H Glucose 158 H POC Glucose (mg/dL) 358 H 256 H Calcium Phosphorus 1.7 L Magnesium Alkaline Phosphatase Total Protein Albumin 03/28/20 03/28/20 03/28/20 00:47 02:46 04:47 WBC RBC Hgb Hct MCHC RDW Plt Count Neutrophils # Lymphocytes # ESR VBG HCO3 Sodium Chloride Carbon Dioxide BUN Creatinine Glucose POC Glucose (mg/dL) 155 H 137 H 167 H Calcium Phosphorus Magnesium Alkaline Phosphatase Total Protein Albumin 03/28/20 03/28/20 03/28/20 06:09 06:46 07:49 WBC RBC Hgb Hct MCHC RDW Plt Count Neutrophils # Lymphocytes # ESR VBG HCO3 Sodium Chloride 111 H Carbon Dioxide 21 L BUN 81 H Creatinine 1.31 H Glucose 140 H POC Glucose (mg/dL) 158 H 168 H Calcium 7.8 L Phosphorus Magnesium Alkaline Phosphatase Total Protein Albumin 03/28/20 11:22 WBC RBC Hgb Hct MCHC RDW Plt Count Neutrophils # Lymphocytes # ESR VBG HCO3 Sodium Chloride Carbon Dioxide BUN Creatinine Glucose POC Glucose (mg/dL) 216 H Calcium Phosphorus Magnesium Alkaline Phosphatase Total Protein Albumin - Diagnostic Findings Chest x-ray: report reviewed, image reviewed CT scan - chest: report reviewed, image reviewed Additional studies: X-ray of the right foot, and ankle x-ray Assessment and Plan Plan: Assessment: #1. Bilateral pleural effusions, right greater than left, with significant atelectasis of the right middle and right lower lobes, status post right-sided thoracentesis today on 03/28/2020 and removal of 1250 mL of clear yellow pleural fluid which was sent for analysis, cytology and cultures, this is likely transudate in nature related to suspected CHF exacerbation #2. Acute exacerbation of congestive heart failure, with an unknown systolic function, echocardiogram is pending #3. Right diabetic foot infection, with x-ray of the right foot showing soft tissue edema, ulceration adjacent to the first metatarsal, subcutaneous emphysema adjacent to the posterior soft tissues of the distal tibia and fibula or could be associated with infectious etiology. Her antibiotic coverage with with Unasyn and vancomycin, ID service is following, vascular surgery is following, and patient is scheduled for possible right foot amputation tomorrow on 03/29/2020 #4. Poorly controlled diabetes mellitus type II with diabetic neuropathy and nonhealing right foot wound. Patient presented with significant hyperglycemia with blood sugar in the 700s, serum acetone was negative #5. Acute kidney injury #6. Hypertension #7. Hyperlipidemia #8. Depression #9. Former smoker #10. Medical debility #11. Gait dysfunction Plan: We had the ultrasound at the bedside to evaluate the size of the right pleural effusion, and proceeded with right-sided thoracentesis at the bedside with the patient's consent. Pleural fluid was removed and sent for analysis, total of 1250 of clear yellow pleural fluid was removed, likely transudate in nature. Patient tolerated procedure well, post procedure chest x-ray has been ordered. Echocardiogram has been ordered and is pending at this time, hemodynamically p atient is stable, she is afebrile, she is covered with antibiotics per ID service recommendations. No cough, no rhonchi, no complaints of chest pain, no wheezing. Provide incentive spirometry. Patient is very weak, appears to be debilitated. We'll continue to closely follow I performed a history & physical examination of the patient and discussed their management with my nurse practitioner, Lina Ch. I reviewed the nurse practitioner's note and agree with the documented findings and plan of care. Lung sounds are positive for diminished breath sounds at bilateral bases. The findings and the impression was discussed with the patient. I attest to the documentation by the nurse practitioner. Time with Patient: Greater than 30
--- NOTE | 2020-03-28 15:44 | CONS ---
CONSULTATION Mrs Rios is a 59-year-old female with known history of diabetes, hyperlipidemia, hypertension, who presented with hyperglycemia and has an ulceration in the right foot, apparently she has chronic wound there that has not been healing. She is awake, denying any chest pain at this time, although the record says that she had prior chest discomfort. According to her, her breathing is stable, but she is quite limited in her activity. She denies any dizziness or palpitation. She denies any knowledge of her prior cardiac history. The patient has been evaluated by Dr. Lopez for possible amputation for nonhealing ulcer and critical limb ischemia. The issue with her foot has been going on for a while and apparently has been [facility] multiple places in the past. The patient denies any recent change in her breathing. She denies any arrhythmia. Her medication home include lithium, Lamictal, Luvox, BuSpar, insulin, amlodipine 10 mg daily, and Lipitor. I do not have any prior history on her. Patient's last admission through the hospital was in August 2018 and at that time she was admitted for pneumonia. REVIEW OF SYSTEMS: RESPIRATORY SYSTEM: She denies any wheezing or cough. GI SYSTEM: She has nausea, no recent GI bleeding. SYSTEM: No dysuria or hematuria. PHYSICAL EXAMINATION: She is a 59-year-old female, appears older than stated age. Blood pressure 104/50 with a heart rate in the 70s. HEAD: Normocephalic. EYES: Sclerae nonicteric. NECK: No bruit. LUNGS: No wheezes. Clear to auscultation. HEART: Regular rate and rhythm, S1, S2. No S3 with systolic ejection murmur 2/6 at the base. No diastolic murmur, no rub. ABDOMEN: Soft, nontender, positive bowel sounds. No organomegaly. EXTREMITIES: Decreased pulses on the left side. +1 edema on the right side. Dressing noted over the foot. LAB DATA: Revealed a BUN and creatinine of 81 and 1.3, hemoglobin of 4. On presentation, her blood sugar was 737. Her potassium was 4.1 and hemoglobin was 8.2. In 2018, her hemoglobin was normal. EKG revealed a sinus mechanism with a right bundle branch block and evidence suggestive of inferior myocardial infarction that was noted in the past. IMPRESSION: 1. Acute limb ischemia with nonhealing ulcer of the right foot. 2. Abnormal EKG with possibility of inferior wall myocardial infarction of unknown age. 3. History of hypertension. 4. Hyperlipidemia. 5. Diabetes mellitus. 6. Anemia. 7. Chronic kidney disease of unknown duration. RECOMMENDATION: From the cardiac standpoint, I will cut down the dose of her amlodipine and add low- dose beta ne. She will continue on the statin. I will obtain echocardiogram with Doppler and depending on her progress, further recommendation will be made. Thank you for this consult. Will follow with you. B[place] / KAYLAN: [id number] / MTDD
--- NOTE | 2020-03-28 15:48 | US ---
EXAMINATION TYPE: US chest DATE OF EXAM: 03/28/2020 COMPARISON: CXR, CT CLINICAL HISTORY: Markings for thoracentesis by pulmonary staff. Effusions TECHNIQUE: Targeted ultrasound of the posterior lower bilateral hemithoraces EXAM MEASUREMENTS: Right Pleural Effusion pocket size: 10.7 cm Right skin surface to fluid distance: 2.8 cm Left Pleural Effusion pocket size: 3.1 cm Right side marked for possible thoracentesis outside the dept. Left side NOT marked for possible thoracentesis outside the dept. Dr. Cordoba present during exam Pulmonologists are able to review the images in the patient?s EMR. IMPRESSIONS: 1. Right pleural effusion
[2020-03-28 16:18] LABS: Glucose,Whole Blood 96 mg/dL (75-99)
--- NOTE | 2020-03-28 16:29 | PN ---
PROGRESS NOTE DATE OF SERVICE: 03/28/2020 REASON FOR FOLLOWUP: Right diabetic foot infection with underlying osteomyelitis. INTERVAL HISTORY: The patient is currently afebrile. The patient is breathing comfortably. Denies having any chest pain or shortness of breath or cough. No nausea, no vomiting, no abdominal pain or any worsening to the right foot area. PHYSICAL EXAMINATION: Blood pressure 119/55, pulse of 93, temperature 98.4. She is 93% on 6 L nasal cannula. General description is a middle-aged female lying in bed in no distress. RESPIRATORY SYSTEM: Unlabored breathing with decreased breath sounds at the base. No wheeze. HEART: S1, S2. Regular rate and rhythm. ABDOMEN: Soft. No tenderness. Right foot is currently dressed up. No obvious drainage on the dressing. LABS: BUN of 81, creatinine 1.31. Blood culture with Staphylococcus aureus and Strep agalactiae. DIAGNOSTIC IMPRESSION AND PLAN: Patient with a right diabetic foot infection with underlying osteomyelitis, now with evidence of Staphylococcus aureus and Streptococcus bacteremia. Patient is covered with vancomycin and Unasyn. Blood cultures will be repeated to document clearance of bacteremia and monitor her clinical course closely. MMODL / IJN: [id number] /
[2020-03-28 16:35] LABS: Appearance,BF Hazy; Color,BF Colorless; Nucleated Cells, Body Fluid 10 /uL; RBC, Body Fluid 385 /uL
[2020-03-28 20:00] LABS: Glucose,Whole Blood 87 mg/dL (75-99)
[2020-03-28] MEDS: ATORVASTATIN 40 MG TAB PO SCH (20:15)
--- NOTE | 2020-03-28 20:28 | P.PN ---
Progress Note - Text Progress Note Date: 03/28/20 Chief Complaint: right foot infection History of presenting complaint: This is a 59-year-old patient who follows with Dr. Og. Chronic stable medical conditions include depression, hypertension, hyperlipidemia, diabetes, peripheral neuropathy. Patient rather tired. Not able to give to her history. States she injured her foot about a week ago and the motor wound on the right foot. She has some neuropathy and decreased sensation. It has become inflamed and draining not getting better. Hence she presented here. Denies any obvious fever and chills. In the ER glucose was found to be 737. Started on insulin drip. Patient somewhat lethargic but able to answer questions. Admitted with abscess of the right foot causing sepsis, metabolic encephalopathy, pneumonia, uncontrolled diabetes requiring insulin drip. Please started on IV fluids, vancomycin, Unasyn. Today-patient was short of breath earlier. Computed tomography scan of the chest was done. Showed pleural effusion and atelectasis. Pulmonary was consulted. Blood cultures coming back positive for staph aureus and Streptococcus agalactiae. tired. Insulin drip was discontinued this morning. Started on Levemir. Review of systems: Was done for constitutional, cardiovascular, GI, pulmonary. relevant finding as above Active Medications Acetaminophen (Tylenol Tab) 650 mg PO Q6HR PRN PRN Reason: Mild Pain or Fever > 100.5 Al Hydroxide/Mg Hydroxide (Maalox) 15 ml PO Q6HR PRN PRN Reason: Indigestion Alprazolam (Xanax) 0.25 mg PO Q6HR PRN PRN Reason: Anxiety Last Admin: 03/27/20 16:51 Dose: 0.25 mg Documented by: Amlodipine Besylate (Norvasc) 5 mg PO DAILY [facility] Atorvastatin Calcium (Lipitor) 40 mg PO HS [facility] Last Admin: 03/28/20 20:15 Dose: 40 mg Documented by: Buspirone HCl (Buspar) 10 mg PO BID [facility] Last Admin: 03/28/20 20:15 Dose: 10 mg Documented by: Calcium Carbonate/Glycine (Tums) 1,000 mg PO Q4HR PRN PRN Reason: Dyspepsia Last Admin: 03/27/20 16:09 Dose: 1,000 mg Documented by: Enoxaparin Sodium (Lovenox) 30 mg SQ DAILY [facility] Fluvoxamine Maleate (Luvox) 25 mg PO DAILY [facility] Last Admin: 03/28/20 08:53 Dose: 25 mg Documented by: Lactated Ringer's (Lactated Ringers) 1,000 mls @ 125 mls/hr IV .Q8H [facility] Last Admin: 03/28/20 11:53 Dose: Not Given Documented by: Sodium Chloride (Saline 0.9%) 1,000 mls @ 200 mls/hr IV .Q5H [facility] Last Admin: 03/28/20 16:12 Dose: Not Given Documented by: Vancomycin HCl 1,250 mg/ (Sodium Chloride) 250 mls @ 125 mls/hr IVPB Q24H [facility] Ampicillin Sodium/Sulbactam (Sodium 3 gm/ Sodium Chloride) 100 mls @ 200 mls/hr IVPB Q12H [facility] Insulin Aspart (Novolog) 0 unit SQ ACHS [facility]; Protocol Last Admin: 03/28/20 20:15 Dose: Not Given Documented by: Insulin Aspart (Novolog) 4 unit SQ AC-TID [facility] Last Admin: 03/28/20 16:12 Dose: Not Given Documented by: Insulin Detemir (Levemir) 20 unit SQ HS [facility] Last Admin: 03/28/20 20:15 Dose: 20 unit Documented by: Lactulose (Cephulac) 20 gm PO DAILY PRN PRN Reason: Constipation Lamotrigine (Lamictal) 100 mg PO DAILY [facility] Last Admin: 03/28/20 08:25 Dose: 100 mg Documented by: [place] Carbonate (Sh[place]ham Carbonate) 300 mg PO DAILY [facility] Last Admin: 03/28/20 08:53 Dose: 300 mg Documented by: Magnesium Hydroxide (Milk Of Magnesia) 2,400 mg PO DAILY PRN PRN Reason: Constipation Melatonin (Melatonin) 3 mg PO HS PRN PRN Reason: Insomnia Metoprolol Tartrate (Lopressor) 25 mg PO BID [facility] Last Admin: 03/28/20 20:15 Dose: 25 mg Documented by: Miscellaneous Information (Potassium Per Protocol) 1 each MISCELLANE DAILY PRN; Protocol PRN Reason: Per Protocol Miscellaneous Information (Magnesium Per Protocol) 1 each MISCELLANE DAILY PRN; Protocol PRN Reason: Per Protocol Multivitamins (Theragran) 1 each PO DAILY [facility] Last Admin: 03/28/20 08:25 Dose: 1 each Documented by: Naloxone HCl (Narcan) 0.2 mg IV Q2M PRN PRN Reason: Opioid Reversal Ondansetron HCl (Zofran) 4 mg IVP Q8HR PRN PRN Reason: Nausea And Vomiting Last Admin: 03/28/20 09:45 Dose: 4 mg Documented by: Physical examination: VITAL SIGNS: 97.9, 76, 18, 104/57, 94% on 4 L GENERAL: Laying in bed, tired EYES: Pupils equal. Conjunctiva normal. HEENT: External appearance of nose and ears normal, oral cavity very dry mucous membranes. NECK: JVD not raised; masses not palpable. HEART: First and second heart sounds are normal; mild edema. LUNGS: Respiratory rate increased, diminished breath sounds. ABDOMEN: Soft, nontender, liver spleen not palpable, no masses palpable. PSYCH: Able to answer questions EXTREMITIES: Right foot swollen and breakdown of skin on the medial aspect of the right big toe at the metacarpophalangeal joint and also breakdown of skin on the plantar surface. Dorsalis pedis cannot be felt INVESTIGATIONS, reviewed in the clinical context: Potassium 3.918T creatinine 1.39 Chest CTA-severe breathing motion artifact, nondiagnostic for PE. Cardiomegaly with some anasarca, moderate right pleural effusion, adjacent collapse of the right middle and right lower lobes. Etc. Previous testing White count 32.3 hemoglobin 8.2 platelets 490 left shift potassium 4.1 bun 81 creatinine 1.22, glucose 737 albumin 2.3 Serum acetone negative EKG tracing personally reviewed by me-atrial flutter with [address] segment changes in anterior leads Chest x-ray film personally reviewed by me-fluid in the fissure, possible infiltrate Assessment: -Acute right foot abscess with cellulitis and possible underlying osteomyelitis, acute. -Sepsis with blood cultures positive for Staphylococcus aureus and Streptococcus agalactiae -Bilateral pneumonia suspect gram-negative organism -Possible parapneumonic effusion on the right with a right middle and right lower lobe collapse -Element of CHF cannot be ruled out -Diabetes mellitus type 2, chronically insulin, uncontrolled on insulin drip to this morning now be switched over to Levemir -Essential hypertension -Hyperlipidemia -Acute metabolic encephalopathy from sepsis, improved -Diabetic peripheral neuropathy Plan: Discussed with Dr. Sebastian. Given the severity of the abscess of the right foot and past training this takes presence or other problems. Antibiotic will be used but will not fix the problem. Patient does not have any acute cardiac problems. And should be renewed to proceed for surgery tomorrow. Patient had thoracentesis done today. Patient is a high risk for any complications with comorbidities. Discussed at length with Dr. Sebastian from vascular. Patient scheduled for amputation tomorrow.
[2020-03-28] MEDS: DEXTROSE 5%-0.45% NACL 1,000 ML IV SCH (22:23)
--- NOTE | 2020-03-28 22:38 | OP ---
OPERATIVE REPORT OPERATIVE PROCEDURE: Right-sided thoracentesis. PREOPERATIVE DIAGNOSIS: Large right pleural effusion. POSTOPERATIVE DIAGNOSIS: Large right pleural effusion. ANESTHESIA USED: 2 mL of 1% lidocaine. PROCEDURE DESCRIPTION: The patient was placed in a sitting-upright position. The area below the right scapula was prepared in a sterile fashion. Ultrasound guidance was used to localize the fluid prior to procedure. The marking was actually at the level of the eighth intercostal space and tip of the scapula. Area was locally anesthetized after sterilizing the field. A 26-gauge needle was inserted at the same site, advanced into the pleural space. Fluid was obtained. Then a small tiny incision was made, and a standard thoracentesis catheter and needle were used, advanced into the pleural space. Fluid was obtained. The catheter was advanced out of the needle into the pleural space and the needle was pulled out of the pleural space. Freely flowing fluid was removed from the right pleural space; roughly 1200 mL of slightly light cathy-colored fluid was removed from the pleural space. Procedure was well tolerated. No evidence of any immediate complications. Fluid was sent for different diagnostic studies. MMODL / IJN: [id number] /
[2020-03-28] MEDS: VANCOMYCIN 1,250 MG in SODIUM CHLORIDE 0.9% 250 ML IVPB SCH (23:34)
[2020-03-29 01:01] LABS: Glucose, BF Source Pleural Fluid; Glucose, Body Fluid 148 mg/dL; LDH, Body Fluid Source Pleural Fluid
[2020-03-29 02:10] LABS: Glucose,Whole Blood 57 mg/dL (75-99)
[2020-03-29] MEDS: SODIUM CHLORIDE 0.9% 1,000 ML IV SCH ×4 (02:10→16:34)
[2020-03-29 02:19] LABS: Glucose,Whole Blood 69 mg/dL (75-99)
[2020-03-29 02:38] LABS: Glucose,Whole Blood 93 mg/dL (75-99)
[2020-03-29 06:03] LABS: Glucose,Whole Blood 116 mg/dL (75-99)
[2020-03-29] MEDS: INSULIN ASPART (NovoLOG) 100 UNIT/ML VIAL SQ SCH ×4 (06:15→20:49)
[2020-03-29 07:39] LABS: Anisocytosis Slight; Hypochromasia Marked; MCHC 29.8 g/dL (31.0-37.0); MCV 87.3 fL (80.0-100.0); Mean Platelet Volume 7.7; Platelet Count 425 k/uL (150-450); Poikilocytosis Slight; RBC 2.52 m/uL (3.80-5.40); RDW 16.7 % (11.5-15.5)
[2020-03-29 07:41] LABS: HGB 6.6 gm/dL (11.4-16.0)
[2020-03-29 07:46] LABS: Albumin 1.7 g/dL (3.5-5.0); Calcium 7.3 mg/dL (8.4-10.2); Potassium 3.9 mmol/L (3.5-5.1); Total Bilirubin 0.3 mg/dL (0.2-1.3); Total Protein 4.1 g/dL (6.3-8.2)
--- NOTE | 2020-03-29 07:49 | ECHOF ---
Referral Reason:htn MEASUREMENTS -------- HEIGHT: 162.6 cm WEIGHT: 72.6 kg BP: 104/57 RVIDd: 3.6 cm (< 3.3) IVSd: 1.3 cm (0.6 - 1.1) LVIDd: 4.3 cm (3.9 - 5.3) LVPWd: 1.3 cm (0.6 - 1.1) IVSs: 1.8 cm LVIDs: 2.6 cm LVPWs: 1.7 cm LA Diam: 3.5 cm (2.7 - 3.8) LAESV Index (A-L): 23.81 ml/m Ao Diam: 3.1 cm (2.0 - 3.7) AV Cusp: 2.4 cm (1.5 - 2.6) MV EXCURSION: 18.525 mm (> 18.000) MV EF SLOPE: 43 mm/s (70 - 150) EPSS: 0.4 cm MV E Jero: 1.34 m/s MV DecT: 275 ms MV A Jero: 1.54 m/s MV E/A Ratio: 0.87 RAP: 5.00 mmHg RVSP: 40.61 mmHg FINDINGS -------- This was a technically good study. The left ventricular size is normal. There is mild concentric left ventricular hypertrophy. Overa ll left ventricular systolic function is normal with, an EF between 60 - 65 %. The right ventricle is mildly enlarged. Normal LA size by volume 22+/-6 ml/m2. The right atrium is normal in size. Interatrial and interventricular septum intact. The aortic valve is trileaflet and appears structurally normal. There is trace to mild mitral regurgitation. Mild tricuspid regurgitation present. There is mild pulmonary hypertension. The right ventricular systolic pressure, as measured by Doppler, is 40.61mmHg. Trace/mild (physiologic) pulmonic regurgitation. The aortic root size is normal. Normal inferior vena cava with normal inspiratory collapse consistent with estimated right atrial pre ssure of 5 mmHg. There is no pericardial effusion. CONCLUSIONS -------- 1. This was a technically good study. 2. The left ventricular size is normal. 3. There is mild concentric left ventricular hypertrophy. 4. Overall left ventricular systolic function is normal with, an EF between 60 - 65 %. 5. The right ventricle is mildly enlarged. 6. Normal LA size by volume 22+/-6 ml/m2. 7. The right atrium is normal in size. 8. Interatrial and interventricular septum intact. 9. The aortic valve is trileaflet and appears structurally normal. 10. There is trace to mild mitral regurgitation. 11. Mild tricuspid regurgitation present. 12. There is mild pulmonary hypertension. 13. The right ventricular systolic pressure, as measured by Doppler, is 40.61mmHg. 14. Trace/mild (physiologic) pulmonic regurgitation. 15. The aortic root size is normal. 16. Normal inferior vena cava with normal inspiratory collapse consistent with estimated right atrial pressure of 5 mmHg. 17. There is no pericardial effusion. SURVEY METHODOLOGIST: Xochilt Toledo RDCS
[2020-03-29] MEDS ORDERED: amLODIPine 5 MG TAB PO SCH (09:00)
[2020-03-29] MEDS: DEXTROSE 5%-0.45% NACL 1,000 ML IV SCH ×2 (10:26→16:07)
[2020-03-29] MEDS: busPIRone HCl 10 MG TAB PO SCH ×2 (10:32→20:46)
[2020-03-29] MEDS: lamoTRIgine 100 MG TAB PO SCH (10:32)
[2020-03-29] MEDS: METOPROLOL TARTRATE 25 MG TAB PO SCH ×2 (10:33→20:46)
[2020-03-29] MEDS: LITHIUM CARBONATE 300 MG CAP PO SCH (10:33)
[2020-03-29] MEDS: MULTIVITAMINS, THERA 1 EACH TAB PO SCH (10:33)
[2020-03-29] MEDS: AMPICILLIN-SULBACTAM 3 GM in SODIUM CHLORIDE 0.9% 100 ML IVPB SCH ×2 (10:52→23:22)
[2020-03-29] MEDS: ENOXAPARIN 30 MG/0.3 ML SYRINGE SQ SCH (11:20)
[2020-03-29 11:37] LABS: Glucose,Whole Blood 140 mg/dL (75-99)
--- NOTE | 2020-03-29 11:54 | P.PN ---
Subjective Progress Note Date: 03/29/20 This is a pleasant 59-year-old female with known history of diabetes, hyperlipidemia, hypertension who presented with hyperglycemia and right foot ulcer. Patient does have a right foot ulcer that is chronic and nonhealing. She is scheduled today at 1:30 PM to undergo amputation by Dr. Lopez due to nonhealing ulcer and critical limb ischemia. We were counseled on the patient secondary to chest discomfort. Patient denies any chest discomfort at this time. Echocardiogram with Doppler showed normal LV systolic function with an ejection fraction of 60-65%, mildly enlarged RV, trace to mild MR, mild TR and mild pulmonary hypertension. Yesterday she had CT scan of the chest which showed severe breathing motion artifacts, cardiomegaly with anasarca and moderate right and small left pleural effusions, correlate for fluid overload C/CHF, and adjacent collapse of the right middle and right lower lobes, additional collapse/consolidation of the basilar left lower lobe, correlate to exclude underlying pneumonia. She subsequently underwent ultrasound of the chest and thoracentesis with 1200 mL drained from the right and sent for diagnostic studies. Objective - Vital Signs Vital signs: Vital Signs Temp 97.7 F 03/29/20 11:27 Pulse 67 03/29/20 11:27 Resp 16 03/29/20 11:27 BP 104/57 03/29/20 11:27 Pulse Ox 94 L 03/29/20 11:27 Intake & Output 03/28/20 03/29/20 03/29/20 18:59 06:59 18:59 Intake Total 100 Output Total 451 Balance -451 100 Weight 35.7 kg 42.5 kg Intake: Intake, IV Titration 100 Amount Dextrose 5%-0.45% NaCl 1, 100 000 ml @ 100 mls/hr IV . Q10H [facility] Rx#:[id number] Blood Product 0 Rc As-1 Unit 0 [id number] Output: Urine 451 Other: # Bowel Movements 1 - Exam PHYSICAL EXAMINATION: HEENT: [Head is atraumatic, normocephalic. Pupils equal, round. Neck is supple. There is no elevated jugular venous pressure.] HEART EXAMINATION: [Heart sounds regular, S1 and S2 with a systolic murmur.] CHEST EXAMINATION:[ Lungs are clear to auscultation and precussion. No chest wall tenderness is noted on palpation or with deep breathing.] ABDOMEN: [ Soft, nontender. Bowel sounds are heard. No organomegaly noted]. EXTREMITIES:[ Decreased peripheral pulses on the left side with evidence of +1 right lower extremity edema. Dressing noted to right foot]. NEUROLOGIC patient is awake, alert and oriented x3. . - Labs CBC & Chem 7: 03/29/20 06:43 03/29/20 06:43 Labs: Abnormal Lab Results - Last 24 Hours (Table) 03/29/20 03/29/20 03/29/20 Range/Units 02:04 02:17 06:01 WBC (3.8-10.6) k/uL RBC (3.80-5.40) m/uL Hgb (11.4-16.0) gm/dL Hct (34.0-46.0) % MCHC (31.0-37.0) g/dL RDW (11.5-15.5) % Chloride (98-107) mmol/L Carbon Dioxide (22-30) mmol/L BUN (7-17) mg/dL Creatinine (0.52-1.04) mg/dL POC Glucose (mg/dL) 57 L 69 L 116 H (75-99) mg/dL Calcium (8.4-10.2) mg/dL AST (14-36) U/L Alkaline Phosphatase (38-126) U/L Total Protein (6.3-8.2) g/dL Albumin (3.5-5.0) g/dL Crossmatch 03/29/20 03/29/20 03/29/20 Range/Units 06:43 06:43 08:46 WBC 29.0 H (3.8-10.6) k/uL RBC 2.52 L (3.80-5.40) m/uL Hgb 6.6 L* D (11.4-16.0) gm/dL Hct 22.0 L (34.0-46.0) % MCHC 29.8 L (31.0-37.0) g/dL RDW 16.7 H (11.5-15.5) % Chloride 112 H (98-107) mmol/L Carbon Dioxide 21 L (22-30) mmol/L BUN 76 H (7-17) mg/dL Creatinine 1.28 H (0.52-1.04) mg/dL POC Glucose (mg/dL) (75-99) mg/dL Calcium 7.3 L (8.4-10.2) mg/dL AST 43 H (14-36) U/L Alkaline Phosphatase 180 H (38-126) U/L Total Protein 4.1 L (6.3-8.2) g/dL Albumin 1.7 L (3.5-5.0) g/dL Crossmatch See Detail 03/29/20 Range/Units 11:35 WBC (3.8-10.6) k/uL RBC (3.80-5.40) m/uL Hgb (11.4-16.0) gm/dL Hct (34.0-46.0) % MCHC (31.0-37.0) g/dL RDW (11.5-15.5) % Chloride (98-107) mmol/L Carbon Dioxide (22-30) mmol/L BUN (7-17) mg/dL Creatinine (0.52-1.04) mg/dL POC Glucose (mg/dL) 140 H (75-99) mg/dL Calcium (8.4-10.2) mg/dL AST (14-36) U/L Alkaline Phosphatase (38-126) U/L Total Protein (6.3-8.2) g/dL Albumin (3.5-5.0) g/dL Crossmatch Microbiology - Last 24 Hours (Table) 03/28/20 14:40 Gram Stain - Preliminary Pleural Fluid Body Fluid Culture - Preliminary 03/28/20 14:40 Anaerobic Culture - Preliminary Pleural Fluid 03/28/20 14:40 Fungal Culture - Preliminary Pleural Fluid 03/28/20 14:40 Acid Fast Bacilli Culture - Preliminary Pleural Fluid 03/27/20 10:57 Blood Culture Gram Stain - Preliminary Blood Blood Culture - Preliminary Staphylococcus aureus Strep agalactiae - (group b) Assessment and Plan Assessment: #1 acute limb ischemia with nonhealing ulcer of the right foot, amputation scheduled for 1:30 today #2 abnormal EKG with possibility of inferior wall AR of unknown age, no evidence of segmental wall motion abnormalities on echocardiogram #3 pleural effusion status post thoracentesis being followed by pulmonary #4 hypertension #5 hyperlipidemia #6 diabetes mellitus #7 anemia #8 chronic kidney disease Plan: From a cardiac standpoint, patient is high risk for surgery under general anesthesia due to multiple medical conditions and overall clinical status however there is no absolute contraindication from our standpoint undergoing gomes rgery. We will continue to follow the patient perioperatively and provide further recommendations to follow. [employer] note has been reviewed, I agree with a documented findings and plan of care. Patient was seen and examined.
--- NOTE | 2020-03-29 12:10 | P.PN ---
Subjective Progress Note Date: 03/29/20 Principal diagnosis: Bilateral pleural effusions, right greater than left, right leg cellulitis 59-year-old white female patient with past medical history significant for hypertension, hyperlipidemia, diabetes mellitus with diabetic neuropathy, depression, previous history of pneumonia, former smoker, who came into the emergency department on 03/27/2020 per EMS for evaluation of significant hyperglycemia, that would not read on the glucometer, weakness, erythema and edema involving the nonhealing wound to the right foot, that apparently also had some foul-smelling drainage. X-ray of the foot shows trace emphysema at the distal end of the tibia and fibula suggestive of infectious etiology. Patient was started on IV antibiotics, insulin infusion. ID service and vascular surgery service are on the case. Patient is scheduled for possible amputation of the right foot tomorrow. Admission blood work showed significant leukocytosis with white blood cell count of 32.3, hemoglobin is 8.2, platelet count is 490, Coreg patient profile is within normal limits, sodium is 134, potassium is 3.6, chloride is 106, CO2 is 19, BUN is 81, creatinine is 1.29 from previously noted normal renal function, on admission serum glucose was 737, is down to 140 on today's labs, proBNP was 3210, serum acetone was negative, coronavirus PCR was negative. Troponin was less than 0.012. Chest x-ray on admission showed bilateral pleural effusions with cardiomegaly and bibasilar infiltrates. There is diffuse interstitial pattern, no pneumothorax. CT angios chest for pulmonary embolism was obtained to rule out PE, and was nondiagnostic for pulmonary embolus be on the central level. Additional cardiomegaly with anasarca, moderate right and small left plural effusion testing fluid overload and CHF. There was adjacent collapse of the right middle and right lower lobe and additional collapse and consolidation of the basilar left lower lobe. Current antibiotic coverage is with Unasyn and vancomycin, one blood culture set collected on 03/27/2020 showed Staphylococcus aureus, and group B strep agalactiae, wound cultures from right foot show many gram-positive cocci, moderate PMNs, many gram-negative bacilli and few gram-positive bacilli, final cultures pending. Patient has been afebrile, she is on 6 L of oxygen right now, her pulse ox is 93%, she is extremely weak and appears to be debilitated, her right foot is wrapped, and is draining through the dressings serous fluid. We spoke to her about her chest x-ray and CTA chest findings and spoke to her about possibility of draining the right pleural effusion and patient is agreeable to proceed. Her renal function slightly worsened on today's labs, BUN is 81, and creatinine is 1.31. No diuretics on board, cardiology consultation is pending, an echocardiogram has already been ordered. The patient is seen today 03/29/2020 in follow-up on the selective care unit. She is currently resting in bed. Awake and alert in no acute distress. Maintaining O2 saturations in the 90s on 4 L/m per nasal cannula. She's been afebrile. Hemodynamically stable. She did have a hemoglobin of 6.6 this morning. She is receiving a unit of packed red blood cells currently. Blood cultures were positive for Staphylococcus aureus, strep agalactiae group B. Right foot cultures pending. Pleural fluid cultures pending. Fluid is transudate with LDH 53 total protein 1.3. White count 29.0. Sodium 138. Potassium 3.9. Bicarb 21. Creatinine 1.28. She is currently on Unasyn and vancomycin. ID is on the case. Objective - Vital Signs Vital signs: Vital Signs Temp 97.7 F 03/29/20 11:27 Pulse 67 03/29/20 11:27 Resp 16 03/29/20 11:27 BP 104/57 03/29/20 11:27 Pulse Ox 94 L 03/29/20 11:27 Intake & Output 03/28/20 03/29/20 03/29/20 18:59 06:59 18:59 Intake Total 100 Output Total 451 Balance -451 100 Weight 35.7 kg 42.5 kg Intake: Intake, IV Titration 100 Amount Dextrose 5%-0.45% NaCl 1, 100 000 ml @ 100 mls/hr IV . Q10H JERRELL Rx#:[id number] Blood Product 0 Rc As-1 Unit 0 [id number] Output: Urine 451 Other: # Bowel Movements 1 - Exam GENERAL EXAM: Alert, chronically ill-looking 59-year-old female patient, that appears much older than stated age, resting in bed, quite weak, requires ext ensive assistance to sit up at the bedside, and she currently on 4 L of oxygen with a pulse ox of 92% HEAD: Normocephalic/atraumatic. EYES: Normal reaction of pupils, equal size. Conjunctiva pink, sclera white. NOSE: Clear with pink turbinates. THROAT: No erythema or exudates. NECK: No masses, no JVD, no thyroid enlargement, no adenopathy. CHEST: No chest wall deformity. Symmetrical expansion. LUNGS: Diminished air entry and dullness to percussion at the left lower base, with crackles left greater than right. CVS: Regular rate and rhythm, normal S1 and S2, no gallops, no murmurs, no rubs ABDOMEN: Soft, nontender. No hepatosplenomegaly, normal bowel sounds, no guarding or rigidity. EXTREMITIES: No clubbing, right lower extremity edema, right lower foot is wrapped with Kerlix gauze with drainage through the Kerlix gauze, no cyanosis, 2+ pulses and upper and lower extremities. MUSCULOSKELETAL: Muscle strength and tone normal. SPINE: No scoliosis or deformity SKIN: No rashes CENTRAL NERVOUS SYSTEM: Alert and oriented -3. No focal deficits, tone is normal in all 4 extremities. PSYCHIATRIC: Alert and oriented -3. Appropriate affect. Intact judgment and insight. - Labs CBC & Chem 7: 03/29/20 06:43 03/29/20 06:43 Labs: Abnormal Lab Results - Last 24 Hours (Table) 03/29/20 03/29/20 03/29/20 Range/Units 02:04 02:17 06:01 WBC (3.8-10.6) k/uL RBC (3.80-5.40) m/uL Hgb (11.4-16.0) gm/dL Hct (34.0-46.0) % MCHC (31.0-37.0) g/dL RDW (11.5-15.5) % Chloride (98-107) mmol/L Carbon Dioxide (22-30) mmol/L BUN (7-17) mg/dL Creatinine (0.52-1.04) mg/dL POC Glucose (mg/dL) 57 L 69 L 116 H (75-99) mg/dL Calcium (8.4-10.2) mg/dL AST (14-36) U/L Alkaline Phosphatase (38-126) U/L Total Protein (6.3-8.2) g/dL Albumin (3.5-5.0) g/dL Crossmatch 03/29/20 03/29/20 03/29/20 Range/Units 06:43 06:43 08:46 WBC 29.0 H (3.8-10.6) k/uL RBC 2.52 L (3.80-5.40) m/uL Hgb 6.6 L* D (11.4-16.0) gm/dL Hct 22.0 L (34.0-46.0) % MCHC 29.8 L (31.0-37.0) g/dL RDW 16.7 H (11.5-15.5) % Chloride 112 H (98-107) mmol/L Carbon Dioxide 21 L (22-30) mmol/L BUN 76 H (7-17) mg/dL Creatinine 1.28 H (0.52-1.04) mg/dL POC Glucose (mg/dL) (75-99) mg/dL Calcium 7.3 L (8.4-10.2) mg/dL AST 43 H (14-36) U/L Alkaline Phosphatase 180 H (38-126) U/L Total Protein 4.1 L (6.3-8.2) g/dL Albumin 1.7 L (3.5-5.0) g/dL Crossmatch See Detail 03/29/20 Range/Units 11:35 WBC (3.8-10.6) k/uL RBC (3.80-5.40) m/uL Hgb (11.4-16.0) gm/dL Hct (34.0-46.0) % MCHC (31.0-37.0) g/dL RDW (11.5-15.5) % Chloride (98-107) mmol/L Carbon Dioxide (22-30) mmol/L BUN (7-17) mg/dL Creatinine (0.52-1.04) mg/dL POC Glucose (mg/dL) 140 H (75-99) mg/dL Calcium (8.4-10.2) mg/dL AST (14-36) U/L Alkaline Phosphatase (38-126) U/L Total Protein (6.3-8.2) g/dL Albumin (3.5-5.0) g/dL Crossmatch Microbiology - Last 24 Hours (Table) 03/28/20 14:40 Gram Stain - Preliminary Pleural Fluid Body Fluid Culture - Preliminary 03/28/20 14:40 Anaerobic Culture - Preliminary Pleural Fluid 03/28/20 14:40 Fungal Culture - Preliminary Pleural Fluid 03/28/20 14:40 Acid Fast Bacilli Culture - Preliminary Pleural Fluid 03/27/20 10:57 Blood Culture Gram Stain - Preliminary Blood Blood Culture - Preliminary Staphylococcus aureus Strep agalactiae - (group b) Assessment and Plan Assessment: #1. Bilateral pleural effusions, right greater than left, with significant atelectasis of the right middle and right lower lobes, status post right-sided thoracentesis today on 03/28/2020 and removal of 1250 mL of clear yellow pleural fluid which was sent for analysis, cytology and cultures, this is transudate in nature related to diastolic CHF exacerbation #2. Acute exacerbation of congestive heart failure, with an unknown systolic function, echocardiogram is pending #3. Right diabetic foot infection, with x-ray of the right foot showing soft tissue edema, ulceration adjacent to the first metatarsal, subcutaneous emphysema adjacent to the posterior soft tissues of the distal tibia and fibula or could be associated with infectious etiology. Her antibiotic coverage with with Unasyn and vancomycin, ID service is following, vascular surgery is following, and patient is scheduled for right foot amputation today 03/29/2020 #4. Poorly controlled diabetes mellitus type II with diabetic neuropathy and nonhealing right foot wound. Patient presented with significant hyperglycemia with blood sugar in the 700s, serum acetone was negative #5. Acute kidney injury #6. Hypertension #7. Hyperlipidemia #8. Depression #9. Former smoker #10. Medical debility #11. Gait dysfunction Plan: The patient was seen and evaluated by Dr. Cordoba Pleural fluid analysis transudate Cultures pending Remains on vancomycin and Unasyn Plan is for disarticulation of right foot today We will continue to follow I, the cosigning physician, performed a history & physical examination of the patient. Lungs sounds crackles in the bilateral posterior bases left greater than right. Maintaining good O2 saturations in the 90s on 2 L nasal cannula. I discussed the assessment and plan of care with my nurse practitioner, Corine Santacruz. I attest to the above note as dictated by her.
[2020-03-29] MEDS ORDERED: IV FLUID CONTINUATION 1,000 ML IV ONE (12:21)
[2020-03-29] MEDS ORDERED: KETAMINE 10 MG/ML 20 ML VIAL ONE (13:18)
[2020-03-29] MEDS ORDERED: MIDAZOLAM 2 MG/2 ML VIAL ONE (13:18)
[2020-03-29] MEDS ORDERED: PROPOFOL 10 MG/ML 20 ML VIAL IV ONE (13:18)
[2020-03-29] MEDS: ONDANSETRON 4 MG/2 ML VIAL IVP PRN (13:25)
[2020-03-29] MEDS ORDERED: DEXAMETHASONE SOD PHOSPHATE 10 MG/ML 1 ML VIAL IV ONE (13:25)
[2020-03-29] MEDS ORDERED: LIDOCAINE 1% INJ 10MG/ML (20 ML MDV) SQ ONE ×2 (13:40)
[2020-03-29] MEDS ORDERED: INSULIN ASPART (NovoLOG) 100 UNIT/ML VIAL SQ ONE (14:40)
[2020-03-29 14:42] LABS: Glucose,Whole Blood 263 mg/dL (75-99)
[2020-03-29 16:28] LABS: Glucose,Whole Blood 247 mg/dL (75-99)
--- NOTE | 2020-03-29 17:53 | OP ---
OPERATIVE REPORT PREOPERATIVE DIAGNOSIS: Right foot wet gangrene with gas-forming organism and necrotizing fasciitis and chronic wound on the dorsum and plantar aspect of the foot. OPERATION: Disarticulation of the right ankle. ANESTHESIA: Ankle block with IV sedation. DESCRIPTION OF PROCEDURE: This patient was seen in the emergency room. The patient has a long-standing history of wound on the plantar and dorsal aspect of the foot. On examination, the patient was reporting pus from the wound on the dorsal and plantar aspects of the foot with marked cellulitis and tenderness of the right lower extremity. Pulses were present by the Doppler. The patient was brought to the operating room, and under ankle block and IV sedation incision was made on the anterior aspect of the ankle, deepened through skin, fat, fascia, and tendons were divided. Then incision was extended to the posterior aspect of the ankle and deepened through skin, fat and fascia. The great saphenous vein and short saphenous vein were suture-ligated with 3 Prolene. Then the foot was kept in traction and ligaments in the ankle were all divided using cautery. The tibial vessels were identified and suture-ligated with 3-0 Prolene. _tendo____ calcaneus was also divided and foot was from the ankle. There was necrotizing fasciitis noted at the ankle also. We excised all the necrotic fascia around the ankle, and after we excised all the devitalized tissue. Hemostasis was well controlled and wound was copiously irrigated with hydrogen peroxide and saline. Pressure dressing was applied. The patient was transferred to the recovery room in satisfactory condition. BOSTON / KAYLAN: [id number] / JORDAN
[2020-03-29 20:11] LABS: Glucose,Whole Blood 277 mg/dL (75-99)
--- NOTE | 2020-03-29 20:22 | P.PN ---
Progress Note - Text Progress Note Date: 03/29/20 Chief Complaint: right foot infection History of presenting complaint: This is a 59-year-old patient who follows with Dr. Og. Chronic stable medical conditions include depression, hypertension, hyperlipidemia, diabetes, peripheral neuropathy. Patient rather tired. Not able to give to her history. States she injured her foot about a week ago and the motor wound on the right foot. She has some neuropathy and decreased sensation. It has become inflamed and draining not getting better. Hence she presented here. Denies any obvious fever and chills. In the ER glucose was found to be 737. Started on insulin drip. Patient somewhat lethargic but able to answer questions. Admitted with abscess of the right foot causing sepsis, metabolic encephalopathy, pneumonia, uncontrolled diabetes requiring insulin drip. Please started on IV fluids, vancomycin, Unasyn.Blood cultures coming back positive for staph aureus and Streptococcus agalactiae. 1200 mL of right pleural effusion was drained Today-taken to the operating room on liver Dr. Sebastian. Right above ankle amputation was carried out. Postprocedure patient was lethargic. When able to answer simple questions. Tired. Hemoglobin this morning was 6.6. 2 units of blood was ordered. Review of systems: Was done for constitutional, cardiovascular, GI, pulmonary. relevant finding as above Active Medications Acetaminophen (Tylenol Tab) 650 mg PO Q6HR PRN PRN Reason: Mild Pain or Fever > 100.5 Al Hydroxide/Mg Hydroxide (Maalox) 15 ml PO Q6HR PRN PRN Reason: Indigestion Alprazolam (Xanax) 0.25 mg PO Q6HR PRN PRN Reason: Anxiety Last Admin: 03/27/20 16:51 Dose: 0.25 mg Documented by: Atorvastatin Calcium (Lipitor) 40 mg PO HS [facility] Last Admin: 03/28/20 20:15 Dose: 40 mg Documented by: Buspirone HCl (Buspar) 10 mg PO BID [facility] Last Admin: 03/29/20 10:32 Dose: 10 mg Documented by: Calcium Carbonate/Glycine (Tums) 1,000 mg PO Q4HR PRN PRN Reason: Dyspepsia Last Admin: 03/27/20 16:09 Dose: 1,000 mg Documented by: Enoxaparin Sodium (Lovenox) 30 mg SQ DAILY [facility] Last Admin: 03/29/20 11:20 Dose: Not Given Documented by: Fluvoxamine Maleate (Luvox) 25 mg PO DAILY [facility] Last Admin: 03/29/20 10:33 Dose: 25 mg Documented by: Vancomycin HCl 1,250 mg/ (Sodium Chloride) 250 mls @ 125 mls/hr IVPB Q24H [facility] Last Admin: 03/28/20 23:34 Dose: 125 mls/hr Documented by: Ampicillin Sodium/Sulbactam (Sodium 3 gm/ Sodium Chloride) 100 mls @ 200 mls/hr IVPB Q12H [facility] Last Admin: 03/29/20 10:52 Dose: 200 mls/hr Documented by: Dextrose/Sodium Chloride (Dextrose 5%-1/2ns Iv Soln) 1,000 mls @ 100 mls/hr IV .Q10H [facility] Last Admin: 03/29/20 16:07 Dose: 100 mls/hr Documented by: Insulin Aspart (Novolog) 0 unit SQ ACHS [facility]; Protocol Last Admin: 03/29/20 16:33 Dose: 4 unit Documented by: Insulin Detemir (Levemir) 15 unit SQ HS [facility] Last Admin: 03/28/20 22:21 Dose: Not Given Documented by: Lactulose (Cephulac) 20 gm PO DAILY PRN PRN Reason: Constipation Lamotrigine (Lamictal) 100 mg PO DAILY [facility] Last Admin: 03/29/20 10:32 Dose: 100 mg Documented by: [place] Carbonate ([place] Carbonate) 300 mg PO DAILY [facility] Last Admin: 03/29/20 10:33 Dose: 300 mg Documented by: Magnesium Hydroxide (Milk Of Magnesia) 2,400 mg PO DAILY PRN PRN Reason: Constipation Melatonin (Melatonin) 3 mg PO HS PRN PRN Reason: Insomnia Metoprolol Tartrate (Lopressor) 25 mg PO BID [facility] Last Admin: 03/29/20 10:33 Dose: 25 mg Documented by: Miscellaneous Information (Potassium Per Protocol) 1 each MISCELLANE DAILY PRN; Protocol PRN Reason: Per Protocol Miscellaneous Information (Magnesium Per Protocol) 1 each MISCELLANE DAILY PRN; Protocol PRN Reason: Per Protocol Multivitamins (Theragran) 1 each PO DAILY [facility] Last Admin: 03/29/20 10:33 Dose: 1 each Documented by: Naloxone HCl (Narcan) 0.2 mg IV Q2M PRN PRN Reason: Opioid Reversal Ondansetron HCl (Zofran) 4 mg IVP Q8HR PRN PRN Reason: Nausea And Vomiting Last Admin: 03/29/20 13:25 Dose: 4 mg Documented by: Physical examination: VITAL SIGNS: 97.5, 18, 16, 112/66, 98% on 4 L GENERAL: Laying in bed, tired EYES: Pupils equal. Conjunctiva normal. HEENT: External appearance of nose and ears normal, oral cavity very dry mucous membranes. NECK: JVD not raised; masses not palpable. HEART: First and second heart sounds are normal; mild edema. LUNGS: Respiratory rate increased, diminished breath sounds. ABDOMEN: Soft, nontender, liver spleen not palpable, no masses palpable. PSYCH: Able to answer questions EXTREMITIES: Right above ankle amputation with a dressing INVESTIGATIONS, reviewed in the clinical context: White count 29th hemoglobin 6.6 potassium 3.9 bun 76 creatinine 1.28 albumin 1.7 Previous testing Potassium 3.918T creatinine 1.39 Chest CTA-severe breathing motion artifact, nondiagnostic for PE. Cardiomegaly with some anasarca, moderate right pleural effusion, adjacent collapse of the right middle and right lower lobes. Etc. Previous testing White count 32.3 hemoglobin 8.2 platelets 490 left shift potassium 4.1 bun 81 creatinine 1.22, glucose 737 albumin 2.3 Serum acetone negative EKG tracing personally reviewed by me-atrial flutter with [address] segment changes in anterior leads Chest x-ray film personally reviewed by me-fluid in the fissure, possible infiltrate Assessment: -Acute right foot abscess with cellulitis and possible underlying osteomyelitis, acute.-Status post right above ankle amputation on March 29 -Sepsis with blood cultures positive for Staphylococcus aureus and Streptococcus agalactiae -Bilateral pneumonia suspect gram-negative organism -Possible parapneumonic effusion with 1200 mL thoracentesis -on the right with a right middle and right lower lobe collapse -Element of CHF cannot be ruled out -Diabetes mellitus type 2, chronically insulin, uncontrolled on insulin drip to this morning now be switched over to Levemir -Essential hypertension -Hyperlipidemia -Acute metabolic encephalopathy from sepsis, slow improvement -Diabetic peripheral neuropathy -Symptomatic anemia possibly combination of underlying renal failure and sepsis- requiring 2 units of blood transfusion -Severe hypoalbuminemiamoderate protein calorie malnutrition Plan: -Patient is IV Unasyn. IV fluids. Vancomycin. Encouraged oral intake supervise. Discussed with the nurse. Repeat labs in the morning.
[2020-03-29] MEDS: ATORVASTATIN 40 MG TAB PO SCH (20:45)
[2020-03-29] MEDS: INSULIN DETEMIR (LEVEMIR) 100 UNIT/ML SYR SQ SCH (20:49)
[2020-03-29 21:14] LABS: Anisocytosis Slight; HCT 29.8 % (34.0-46.0); Hypochromasia Marked; MCH 27.7 pg (25.0-35.0); MCHC 30.8 g/dL (31.0-37.0); MCV 89.7 fL (80.0-100.0); Mean Platelet Volume 7.9; Platelet Count 353 k/uL (150-450); Poikilocytosis Slight; RBC 3.33 m/uL (3.80-5.40); RDW 16.5 % (11.5-15.5); WBC 27.3 k/uL (3.8-10.6)
[2020-03-29 21:27] LABS: HGB 9.2 gm/dL (11.4-16.0)
[2020-03-29] MEDS: VANCOMYCIN 1,250 MG in SODIUM CHLORIDE 0.9% 250 ML IVPB SCH (23:22)
[2020-03-30] MEDS ORDERED: HYDROcodone/APAP 5-325MG 1 EACH TAB PO PRN (00:12)
[2020-03-30] MEDS: HYDROmorphone 0.5 MG/0.5 ML SYRINGE IVP PRN ×2 (00:20→22:00)
[2020-03-30 06:05] LABS: Glucose,Whole Blood 249 mg/dL (75-99)
[2020-03-30] MEDS: INSULIN ASPART (NovoLOG) 100 UNIT/ML VIAL SQ SCH ×4 (06:15→21:24)
--- NOTE | 2020-03-30 08:00 | PN ---
PROGRESS NOTE DATE OF SERVICE: 03/29/2020 REASON FOR FOLLOWUP: Left diabetic foot infection with underlying osteomyelitis. INTERVAL HISTORY: The patient was taken to the OR. The patient is status post disarticulation of the right ankle. The patient has tolerated the procedure. She was seen in the postop where the patient was slightly sleepy, lethargic though denies any chest pain or cough. No nausea, vomiting, abdominal pain. The pain to the right leg is currently controlled. PHYSICAL EXAMINATION: Blood pressure 112/66, pulse of 76, temperature 97.5. She is 98% on 4 L. General description is a middle-aged female lying in bed in no distress. Respiratory system: Unlabored breathing, clear to auscultation anteriorly. Heart S1, S2. Regular rate and rhythm. Abdomen soft, no tenderness. Right leg surgical site is currently dressed, no drainage on the dressing. LABS: Hemoglobin 9.2, white count 7.3, BUN of 76, creatinine 1.28. DIAGNOSTIC IMPRESSION AND PLAN: Patient with right diabetic foot infection with underlying osteomyelitis and gangrene status post right ankle disarticulation with Staph aureus bacteremia. Patient is covered with Unasyn and vancomycin because of her ( ) allergy, to continue and monitor clinical course closely. MMODL / IJN: [id number] /
[2020-03-30 08:05] LABS: Anisocytosis Slight; HCT 27.6 % (34.0-46.0); HGB 8.7 gm/dL (11.4-16.0); Hypochromasia Marked; MCH 27.8 pg (25.0-35.0); MCHC 31.6 g/dL (31.0-37.0); MCV 87.9 fL (80.0-100.0); Mean Platelet Volume 7.8; Platelet Count 381 k/uL (150-450); Poikilocytosis Slight; RBC 3.14 m/uL (3.80-5.40); RDW 16.8 % (11.5-15.5); WBC 25.6 k/uL (3.8-10.6)
[2020-03-30 08:25] LABS: Albumin 1.8 g/dL (3.5-5.0); Calcium 7.3 mg/dL (8.4-10.2); Potassium 4.3 mmol/L (3.5-5.1); Total Bilirubin 0.3 mg/dL (0.2-1.3); Total Protein 4.2 g/dL (6.3-8.2)
[2020-03-30] MEDS: METOPROLOL TARTRATE 25 MG TAB PO SCH ×2 (08:42→22:59)
[2020-03-30] MEDS: lamoTRIgine 100 MG TAB PO SCH (08:42)
[2020-03-30] MEDS: busPIRone HCl 10 MG TAB PO SCH ×2 (08:42→22:58)
[2020-03-30] MEDS: MULTIVITAMINS, THERA 1 EACH TAB PO SCH (08:42)
[2020-03-30] MEDS: LITHIUM CARBONATE 300 MG CAP PO SCH (08:43)
[2020-03-30] MEDS: ENOXAPARIN 30 MG/0.3 ML SYRINGE SQ SCH (08:43)
--- NOTE | 2020-03-30 11:28 | P.PN ---
Subjective Progress Note Date: 03/30/20 Principal diagnosis: Bilateral pleural effusions, right greater than left, right leg cellulitis 59-year-old white female patient with past medical history significant for hypertension, hyperlipidemia, diabetes mellitus with diabetic neuropathy, depression, previous history of pneumonia, former smoker, who came into the emergency department on 03/27/2020 per EMS for evaluation of significant hyperglycemia, that would not read on the glucometer, weakness, erythema and edema involving the nonhealing wound to the right foot, that apparently also had some foul-smelling drainage. X-ray of the foot shows trace emphysema at the distal end of the tibia and fibula suggestive of infectious etiology. Patient was started on IV antibiotics, insulin infusion. ID service and vascular surgery service are on the case. Patient is scheduled for possible amputation of the right foot tomorrow. Admission blood work showed significant leukocytosis with white blood cell count of 32.3, hemoglobin is 8.2, platelet count is 490, Coreg patient profile is within normal limits, sodium is 134, potassium is 3.6, chloride is 106, CO2 is 19, BUN is 81, creatinine is 1.29 from previously noted normal renal function, on admission serum glucose was 737, is down to 140 on today's labs, proBNP was 3210, serum acetone was negative, coronavirus PCR was negative. Troponin was less than 0.012. Chest x-ray on admission showed bilateral pleural effusions with cardiomegaly and bibasilar infiltrates. There is diffuse interstitial pattern, no pneumothorax. CT angios chest for pulmonary embolism was obtained to rule out PE, and was nondiagnostic for pulmonary embolus be on the central level. Additional cardiomegaly with anasarca, moderate right and small left plural effusion testing fluid overload and CHF. There was adjacent collapse of the right middle and right lower lobe and additional collapse and consolidation of the basilar left lower lobe. Current antibiotic coverage is with Unasyn and vancomycin, one blood culture set collected on 03/27/2020 showed Staphylococcus aureus, and group B strep agalactiae, wound cultures from right foot show many gram-positive cocci, moderate PMNs, many gram-negative bacilli and few gram-positive bacilli, final cultures pending. Patient has been afebrile, she is on 6 L of oxygen right now, her pulse ox is 93%, she is extremely weak and appears to be debilitated, her right foot is wrapped, and is draining through the dressings serous fluid. We spoke to her about her chest x-ray and CTA chest findings and spoke to her about possibility of draining the right pleural effusion and patient is agreeable to proceed. Her renal function slightly worsened on today's labs, BUN is 81, and creatinine is 1.31. No diuretics on board, cardiology consultation is pending, an echocardiogram has already been ordered. The patient is seen today 03/29/2020 in follow-up on the selective care unit. She is currently resting in bed. Awake and alert in no acute distress. Maintaining O2 saturations in the 90s on 4 L/m per nasal cannula. She's been afebrile. Hemodynamically stable. She did have a hemoglobin of 6.6 this morning. She is receiving a unit of packed red blood cells currently. Blood cultures were positive for Staphylococcus aureus, strep agalactiae group B. Right foot cultures pending. Pleural fluid cultures pending. Fluid is transudate with LDH 53 total protein 1.3. White count 29.0. Sodium 138. Potassium 3.9. Bicarb 21. Creatinine 1.28. She is currently on Unasyn and vancomycin. ID is on the case. The patient is seen today 03/30/2020 in follow-up on the selective care unit. She is awake and alert in no acute distress. Resting in bed. Maintaining O2 saturations in the mid 90s on 3 L/m per nasal cannula. She's afebrile. Hemodynamically stable. She did undergo amputation of the right foot yesterday secondary to wet gangrene with gas-forming organisms and necrotizing fasciitis. Postoperative day #1. White count 25.6. Hemoglobin 8.7. Sodium 137. Potassium 4.3. Bicarb 19. Creatinine 1.14. She is on Unasyn and vancomycin. Objective - Vital Signs Vital signs: Vital Signs Temp 97.6 F 03/30/20 08:46 Pulse 65 03/30/20 08:46 Resp 20 03/30/20 08:46 BP 123/64 03/30/20 08:46 Pulse Ox 97 03/30/20 08:46 Intake & Output 03/29/20 03/30/20 03/30/20 18:59 06:59 18:59 Intake Total 2009 310 Output Total 50 Balance 1959 310 Weight 56 kg Intake: IV 700 Intake, IV Titration 1000 Amount Ampicillin-Sulbactam 3 gm 100 In Sodium Chloride 0.9% 100 ml @ 200 mls/hr IVPB Q12H [facility] Rx#:[id number] Dextrose 5%-0.45% NaCl 1, 900 000 ml @ 100 mls/hr IV . Q10H [facility] Rx#:[id number] Blood Product 310 310 Rc As-1 Unit 0 310 [id number] Rc As-1 Unit 310 [id number] Output: Estimated Blood Loss 50 Other: # Voids 1 1 # Bowel Movements 1 - Exam GENERAL EXAM: Alert, chronically ill-looking 59-year-old female patient, that appears much older than stated age, resting in bed, quite weak, requires extensive assistance to sit up at the bedside, and she currently on 4 L of oxygen with a pulse ox of 92% HEAD: Normocephalic/atraumatic. EYES: Normal reaction of pupils, equal size. Conjunctiva pink, sclera white. NOSE: Clear with pink turbinates. THROAT: No erythema or exudates. NECK: No masses, no JVD, no thyroid enlargement, no adenopathy. CHEST: No chest wall deformity. Symmetrical expansion. LUNGS: Diminished air entry and dullness to percussion at the left lower base, with crackles left greater than right. CVS: Regular rate and rhythm, normal S1 and S2, no gallops, no murmurs, no rubs ABDOMEN: Soft, nontender. No hepatosplenomegaly, normal bowel sounds, no guarding or rigidity. EXTREMITIES: No clubbing, right lower extremity is wrapped , status post amputation of the right foot MUSCULOSKELETAL: Muscle strength and tone normal. SPINE: No scoliosis or deformity SKIN: No rashes CENTRAL NERVOUS SYSTEM: No focal deficits, tone is normal in all 4 extremities. PSYCHIATRIC: Alert and oriented -3. Appropriate affect. Intact judgment and insight. - Labs CBC & Chem 7: 03/30/20 07:26 03/30/20 07:26 Labs: Abnormal Lab Results - Last 24 Hours (Table) 03/29/20 03/29/20 03/29/20 Range/Units 08:46 11:35 14:39 WBC (3.8-10.6) k/uL RBC (3.80-5.40) m/uL Hgb (11.4-16.0) gm/dL Hct (34.0-46.0) % MCHC (31.0-37.0) g/dL RDW (11.5-15.5) % Chloride (98-107) mmol/L Carbon Dioxide (22-30) mmol/L BUN (7-17) mg/dL Creatinine (0.52-1.04) mg/dL Glucose (74-99) mg/dL POC Glucose (mg/dL) 140 H 263 H (75-99) mg/dL Calcium (8.4-10.2) mg/dL Alkaline Phosphatase (38-126) U/L Total Protein (6.3-8.2) g/dL Albumin (3.5-5.0) g/dL Crossmatch See Detail 03/29/20 03/29/20 03/29/20 Range/Units 16:27 20:10 20:52 WBC 27.3 H (3.8-10.6) k/uL RBC 3.33 L (3.80-5.40) m/uL Hgb 9.2 L D (11.4-16.0) gm/dL Hct 29.8 L (34.0-46.0) % MCHC 30.8 L (31.0-37.0) g/dL RDW 16.5 H (11.5-15.5) % Chloride (98-107) mmol/L Carbon Dioxide (22-30) mmol/L BUN (7-17) mg/dL Creatinine (0.52-1.04) mg/dL Glucose (74-99) mg/dL POC Glucose (mg/dL) 247 H 277 H (75-99) mg/dL Calcium (8.4-10.2) mg/dL Alkaline Phosphatase (38-126) U/L Total Protein (6.3-8.2) g/dL Albumin (3.5-5.0) g/dL Crossmatch 03/30/20 03/30/20 03/30/20 Range/Units 06:04 07:26 07:26 WBC 25.6 H (3.8-10.6) k/uL RBC 3.14 L (3.80-5.40) m/uL Hgb 8.7 L (11.4-16.0) gm/dL Hct 27.6 L (34.0-46.0) % MCHC (31.0-37.0) g/dL RDW 16.8 H (11.5-15.5) % Chloride 115 H (98-107) mmol/L Carbon Dioxide 19 L (22-30) mmol/L BUN 59 H (7-17) mg/dL Creatinine 1.14 H (0.52-1.04) mg/dL Glucose 200 H (74-99) mg/dL POC Glucose (mg/dL) 249 H (75-99) mg/dL Calcium 7.3 L (8.4-10.2) mg/dL Alkaline Phosphatase 171 H (38-126) U/L Total Protein 4.2 L (6.3-8.2) g/dL Albumin 1.8 L (3.5-5.0) g/dL Crossmatch Microbiology - Last 24 Hours (Table) 03/27/20 10:57 Gram Stain - Final Foot - Right Wound Culture - Final Staphylococcus aureus Strep agalactiae - (group b) 03/27/20 10:57 Blood Culture Gram Stain - Final Blood Blood Culture - Final Staphylococcus aureus Strep agalactiae - (group b) 03/27/20 16:08 Gram Stain - Preliminary Foot - Right Wound Culture - Preliminary Presumptive Staph aureus Shasha albicans 03/28/20 14:40 Acid Fast Bacilli Smear - Final Pleural Fluid Acid Fast Bacilli Culture - Preliminary 03/28/20 14:40 Gram Stain - Preliminary Pleural Fluid Body Fluid Culture - Preliminary Assessment and Plan Assessment: #1. Bilateral pleural effusions, right greater than left, with significant atelectasis of the right middle and right lower lobes, status post right-sided thoracentesis today on 03/28/2020 and removal of 1250 mL of clear yellow pleural fluid which was sent for analysis, cytology and cultures, this is transudate in nature related to diastolic CHF exacerbation #2. Acute exacerbation of congestive heart failure, with an unknown systolic function, echocardiogram is pending #3. Right diabetic foot infection, status post amputation on 03/29/2020. Currently on vancomycin and Unasyn #4. Poorly controlled diabetes mellitus type II with diabetic neuropathy and nonhealing right foot wound. Patient presented with significant hyperglycemia with blood sugar in the 700s, serum acetone was negative #5. Acute kidney injury #6. Hypertension #7. Hyperlipidemia #8. Depression #9. Former smoker #10. Medical debility #11. Gait dysfunction Plan: The patient was seen and evaluated by Dr. Cordoba Remains on vancomycin and Unasyn We will continue to follow I, the cosigning physician, performed a history & physical examination of the patient. Lungs sounds crackles in the bilateral posterior bases left greater than right. Maintaining good O2 saturations in the 90s on 3 L nasal cannula. I discussed the assessment and plan of care with my nurse practitioner, Corine Santacruz. I attest to the above note as dictated by her.
--- NOTE | 2020-03-30 11:52 | PN ---
PROGRESS NOTE Mrs. Rios is 59-year-old female who presented with critical limb ischemia, nonhealing ulcer. She underwent amputation of her left lower extremity yesterday below the knee. She is awake, alert. She is somewhat still having issue with the amputation, but she denies any chest pain. Her breathing is stable. She denies any dizziness or palpitation. She has underwent thoracentesis prior to that. Hemodynamically, she has been stable. Her echocardiogram that was performed during this admission showed ejection fraction of 60 to 65%. She continues to be at this time on Lipitor 40 mg daily, lithium, metoprolol tartrate 25 mg twice a day. PHYSICAL EXAMINATION: Blood pressure 123/60 with a heart rate 60. Lungs with decreased air exchange, no wheezes. HEART: Regular rate and rhythm, S1, S2. No S3. No rub. ABDOMEN: Soft, nontender. EXTREMITIES: No edema. LAB DATA: Revealed BUN and creatinine of 59 and 1.14, improved compared to admission. Hemoglobin of 8.7, white blood cell 25.6. IMPRESSION: 1. Status post amputation of left lower extremity [id number]. 2. Renal failure, improving. 3. History of hypertension. 4. Pleural effusion status post paracentesis. 5. Hyperlipidemia. 6. Diabetes mellitus. 7. Anemia. RECOMMENDATIONS: From the cardiac standpoint, will continue present therapy. I will continue to follow her renal function. We will add to her regimen aspirin 81 mg daily. Depending on her progress, further recommendations will be made. MMODL / IJN: [id number] /
[2020-03-30 12:01] LABS: Glucose,Whole Blood 218 mg/dL (75-99)
[2020-03-30] MEDS: AMPICILLIN-SULBACTAM 3 GM in SODIUM CHLORIDE 0.9% 100 ML IVPB SCH ×2 (12:19→23:42)
[2020-03-30] MEDS: DEXTROSE 5%-0.45% NACL 1,000 ML IV SCH ×2 (12:24→16:43)
[2020-03-30] MEDS: VANCOMYCIN 1,250 MG in SODIUM CHLORIDE 0.9% 250 ML IVPB SCH ×2 (16:42→16:48)
--- NOTE | 2020-03-30 16:58 | P.PN ---
Progress Note - Text Progress Note Date: 03/30/20 Chief Complaint: right foot infection History of presenting complaint: This is a 59-year-old patient who follows with Dr. Og. Chronic stable medical conditions include depression, hypertension, hyperlipidemia, diabetes, peripheral neuropathy. Patient rather tired. Not able to give to her history. States she injured her foot about a week ago and the motor wound on the right foot. She has some neuropathy and decreased sensation. It has become inflamed and draining not getting better. Hence she presented here. Denies any obvious fever and chills. In the ER glucose was found to be 737. Started on insulin drip. Patient somewhat lethargic but able to answer questions. Admitted with abscess of the right foot causing sepsis, metabolic encephalopathy, pneumonia, uncontrolled diabetes requiring insulin drip. Please started on IV fluids, vancomycin, Unasyn.Blood cultures coming back positive for staph aureus and Streptococcus agalactiae. 1200 mL of right pleural effusion was drained. March 29 right above ankle amputation carried out.patient received 2 units of blood. Today-.a bit more awake today. Attempted to eat. Pain is controlled. Breathing is stable. Review of systems: Was done for constitutional, cardiovascular, GI, pulmonary. relevant finding as above Active Medications Acetaminophen (Tylenol Tab) 650 mg PO Q6HR PRN PRN Reason: Mild Pain or Fever > 100.5 Hydrocodone Bitart/Acetaminophen ([place] 5-325) 1 each PO Q6HR PRN PRN Reason: Pain Al Hydroxide/Mg Hydroxide (Maalox) 15 ml PO Q6HR PRN PRN Reason: Indigestion Alprazolam (Xanax) 0.25 mg PO Q6HR PRN PRN Reason: Anxiety Last Admin: 03/27/20 16:51 Dose: 0.25 mg Documented by: Aspirin (Aspirin) 81 mg PO DAILY [facility] Atorvastatin Calcium (Lipitor) 40 mg PO HS [facility] Last Admin: 03/29/20 20:45 Dose: Not Given Documented by: Buspirone HCl (Buspar) 10 mg PO BID [facility] Last Admin: 03/30/20 08:42 Dose: 10 mg Documented by: Calcium Carbonate/Glycine (Tums) 1,000 mg PO Q4HR PRN PRN Reason: Dyspepsia Last Admin: 03/27/20 16:09 Dose: 1,000 mg Documented by: Enoxaparin Sodium (Lovenox) 30 mg SQ DAILY [facility] Last Admin: 03/30/20 08:43 Dose: 30 mg Documented by: Fluvoxamine Maleate (Luvox) 25 mg PO DAILY [facility] Last Admin: 03/30/20 08:43 Dose: 25 mg Documented by: Hydromorphone HCl (Dilaudid) 0.5 mg IVP Q4HR PRN PRN Reason: Pain Last Admin: 03/30/20 00:20 Dose: 0.5 mg Documented by: Ampicillin Sodium/Sulbactam (Sodium 3 gm/ Sodium Chloride) 100 mls @ 200 mls/hr IVPB Q12H [facility] Last Admin: 03/30/20 12:19 Dose: 200 mls/hr Documented by: Dextrose/Sodium Chloride (Dextrose 5%-1/2ns Iv Soln) 1,000 mls @ 100 mls/hr IV .Q10H [facility] Last Admin: 03/30/20 16:43 Dose: Not Given Documented by: Vancomycin HCl 1,250 mg/ (Sodium Chloride) 250 mls @ 125 mls/hr IVPB Q16H [facility] Last Admin: 03/30/20 16:48 Dose: 125 mls/hr Documented by: Insulin Aspart (Novolog) 0 unit SQ ACHS [facility]; Protocol Last Admin: 03/30/20 12:19 Dose: 3 unit Documented by: Insulin Detemir (Levemir) 15 unit SQ HS [facility] Last Admin: 03/29/20 20:49 Dose: 15 unit Documented by: Lactulose (Cephulac) 20 gm PO DAILY PRN PRN Reason: Constipation Lamotrigine (Lamictal) 100 mg PO DAILY [facility] Last Admin: 03/30/20 08:42 Dose: 100 mg Documented by: Eros Carbonate (Eros Carbonate) 300 mg PO DAILY [facility] Last Admin: 03/30/20 08:43 Dose: 300 mg Documented by: Magnesium Hydroxide (Milk Of Magnesia) 2,400 mg PO DAILY PRN PRN Reason: Constipation Melatonin (Melatonin) 3 mg PO HS PRN PRN Reason: Insomnia Metoprolol Tartrate (Lopressor) 25 mg PO BID [facility] Last Admin: 03/30/20 08:42 Dose: 25 mg Documented by: Miscellaneous Information (Potassium Per Protocol) 1 each MISCELLANE DAILY PRN; Protocol PRN Reason: Per Protocol Miscellaneous Information (Magnesium Per Protocol) 1 each MISCELLANE DAILY PRN; Protocol PRN Reason: Per Protocol Miscellaneous Information (Vancomycin Trough Due) 0 each MISCELLANE DIRECTED ONE Stop: 03/31/20 07:01 Multivitamins (Theragran) 1 each PO DAILY [facility] Last Admin: 03/30/20 08:42 Dose: 1 each Documented by: Naloxone HCl (Narcan) 0.2 mg IV Q2M PRN PRN Reason: Opioid Reversal Ondansetron HCl (Zofran) 4 mg IVP Q8HR PRN PRN Reason: Nausea And Vomiting Last Admin: 03/29/20 13:25 Dose: 4 mg Documented by: Physical examination: VITAL SIGNS: 97.5, 86, 16, 121/65, 95% on 3 L GENERAL:propped up in bed, more awake EYES: Pupils equal. Conjunctiva normal. HEENT: External appearance of nose and ears normal, oral cavity very dry mucous membranes. NECK: JVD not raised; masses not palpable. HEART: First and second heart sounds are normal; mild edema. LUNGS: Respiratory rate increased, diminished breath sounds. ABDOMEN: Soft, nontender, liver spleen not palpable, no masses palpable. PSYCH: Able to answer questions EXTREMITIES: Right above ankle amputation with a dressing INVESTIGATIONS, reviewed in the clinical context: Previous testing Potassium 3.918T creatinine 1.39 Chest CTA-severe breathing motion artifact, nondiagnostic for PE. Cardiomegaly with some anasarca, moderate right pleural effusion, adjacent collapse of the right middle and right lower lobes. Etc. Previous testing White count 32.3 hemoglobin 8.2 platelets 490 left shift potassium 4.1 bun 81 creatinine 1.22, glucose 737 albumin 2.3 Serum acetone negative EKG tracing personally reviewed by me-atrial flutter with [address] segment changes in anterior leads Chest x-ray film personally reviewed by me-fluid in the fissure, possible infiltrate Assessment: -Acute right foot abscess with cellulitis and possible underlying osteomyelitis, acute.-Status post right above ankle amputation on March 29 -Sepsis with blood cultures positive for Staphylococcus aureus and Streptococcus agalactiae -Bilateral pneumonia suspect gram-negative organism -parapneumonic effusion with 1200 mL thoracentesis - right middle and right lower lobe collapse -Element of CHF cannot be ruled out -Diabetes mellitus type 2, chronically insulin, uncontrolled on insulin drip to this morning now be switched over to Levemir -Essential hypertension -Hyperlipidemia -Acute metabolic encephalopathy from sepsis, improvingt -Diabetic peripheral neuropathy -Symptomatic anemia possibly combination of underlying renal failure and sepsis- requiring 2 units of blood transfusion -Severe hypoalbuminemia, secondary to moderate protein calorie malnutrition Plan: -gettingIV Unasyn. IV fluids. Vancomycin. other medications to continue.we will add ensure
[2020-03-30] MEDS ORDERED: SODIUM CHLORIDE 0.9% 1,000 ML IV SCH (17:15)
[2020-03-30 17:35] LABS: Glucose,Whole Blood 239 mg/dL (75-99)
[2020-03-30] MEDS ORDERED: ONDANSETRON 4 MG/2 ML VIAL IVP PRN (17:53)
[2020-03-30] MEDS: SODIUM BICARBONATE TAB 650 MG TAB PO SCH ×2 (18:03→22:59)
[2020-03-30 20:22] LABS: Glucose,Whole Blood 223 mg/dL (75-99)
[2020-03-30] MEDS ORDERED: INSULIN DETEMIR (LEVEMIR) 100 UNIT/ML SYR SQ SCH (21:00)
[2020-03-30] MEDS: METOCLOPRAMIDE 5 MG/ML 2 ML VIAL IVP SCH (21:23)
--- NOTE | 2020-03-30 22:45 | PN ---
PROGRESS NOTE DATE OF SERVICE: 03/30/2020 REASON FOR FOLLOW UP: The right diabetic foot infection. INTERVAL HISTORY: The patient is currently afebrile, has been breathing comfortably. The patient denies having any chest pain or cough. Complaining of some nausea. No abdominal pain or any worsening pain to the right leg area. PHYSICAL EXAMINATION: Blood pressure 130/65 with a pulse of 69, temperature 97.7. She is 94% on 4 L. General description is a middle-aged female lying in bed in no distress. Respiratory system: Unlabored breathing, clear to auscultation anteriorly. Heart S1, S2. Regular rate and rhythm. Abdomen soft, no tenderness. Right leg ankle disarticulation site currently with no drainage. LABS: Hemoglobin 8.4, white count 5.6, creatinine 1.14. DIAGNOSTIC IMPRESSION AND PLAN: Patient with MSSA and Streptococcus agalactiae bacteremia, source is right diabetic foot infection status post disarticulation at the ankle. The patient did have CEFAZOLIN allergy, hence, will keep the patient on vancomycin while monitoring her kidney function and clinical course closely. Continue supportive care. MMODL / IJN: [id number] /
[2020-03-30] MEDS: ATORVASTATIN 40 MG TAB PO SCH (22:58)
[2020-03-31 06:16] LABS: Glucose,Whole Blood 43 mg/dL (75-99)
[2020-03-31] MEDS: INSULIN ASPART (NovoLOG) 100 UNIT/ML VIAL SQ SCH ×4 (06:28→20:34)
[2020-03-31] MEDS: METOCLOPRAMIDE 5 MG/ML 2 ML VIAL IVP SCH ×2 (06:31→12:29)
[2020-03-31 06:32] LABS: Glucose,Whole Blood 40 mg/dL (75-99)
[2020-03-31] MEDS ORDERED: DEXTROSE 50% SYRINGE 50 ML IVP ONE (06:33)
[2020-03-31] MEDS ORDERED: DEXTROSE 50% SYRINGE 50 ML IVP STA (06:35)
[2020-03-31 06:48] LABS: Glucose,Whole Blood 134 mg/dL (75-99)
[2020-03-31] MEDS ORDERED: VANCOMYCIN TROUGH DUE 1 EACH MISC MISCELLANE ONE (07:00)
[2020-03-31 07:07] LABS: Anisocytosis Slight; HCT 28.9 % (34.0-46.0); HGB 8.9 gm/dL (11.4-16.0); Hypochromasia Moderate; MCH 26.6 pg (25.0-35.0); MCHC 30.6 g/dL (31.0-37.0); MCV 86.7 fL (80.0-100.0); Mean Platelet Volume 7.7; Platelet Count 356 k/uL (150-450); Poikilocytosis Slight; RBC 3.34 m/uL (3.80-5.40); RDW 17.3 % (11.5-15.5); WBC 23.4 k/uL (3.8-10.6)
[2020-03-31 07:30] LABS: Calcium 7.6 mg/dL (8.4-10.2); Potassium 3.7 mmol/L (3.5-5.1)
[2020-03-31] MEDS: VANCOMYCIN 1,250 MG in SODIUM CHLORIDE 0.9% 250 ML IVPB SCH (08:54)
[2020-03-31] MEDS: SODIUM BICARBONATE TAB 650 MG TAB PO SCH ×3 (08:55→20:34)
[2020-03-31] MEDS: ASPIRIN 81 MG PO SCH (08:55)
[2020-03-31] MEDS: MULTIVITAMINS, THERA 1 EACH TAB PO SCH (08:55)
[2020-03-31] MEDS: LITHIUM CARBONATE 300 MG CAP PO SCH (08:55)
[2020-03-31] MEDS: METOPROLOL TARTRATE 25 MG TAB PO SCH ×2 (08:55→20:33)
[2020-03-31] MEDS: lamoTRIgine 100 MG TAB PO SCH (08:55)
[2020-03-31] MEDS: busPIRone HCl 10 MG TAB PO SCH ×2 (08:55→20:34)
[2020-03-31] MEDS: ENOXAPARIN 30 MG/0.3 ML SYRINGE SQ SCH (08:55)
[2020-03-31] MEDS: PANTOPRAZOLE 40 MG TABLET PO SCH ×2 (10:55→17:50)
[2020-03-31 12:07] LABS: Glucose,Whole Blood 165 mg/dL (75-99)
--- NOTE | 2020-03-31 12:08 | P.PN ---
Subjective Progress Note Date: 03/31/20 Principal diagnosis: Bilateral pleural effusions, right greater than left, right leg cellulitis 59-year-old white female patient with past medical history significant for hypertension, hyperlipidemia, diabetes mellitus with diabetic neuropathy, depression, previous history of pneumonia, former smoker, who came into the emergency department on 03/27/2020 per EMS for evaluation of significant hyperglycemia, that would not read on the glucometer, weakness, erythema and edema involving the nonhealing wound to the right foot, that apparently also had some foul-smelling drainage. X-ray of the foot shows trace emphysema at the distal end of the tibia and fibula suggestive of infectious etiology. Patient was started on IV antibiotics, insulin infusion. ID service and vascular surgery service are on the case. Patient is scheduled for possible amputation of the right foot tomorrow. Admission blood work showed significant leukocytosis with white blood cell count of 32.3, hemoglobin is 8.2, platelet count is 490, Coreg patient profile is within normal limits, sodium is 134, potassium is 3.6, chloride is 106, CO2 is 19, BUN is 81, creatinine is 1.29 from previously noted normal renal function, on admission serum glucose was 737, is down to 140 on today's labs, proBNP was 3210, serum acetone was negative, coronavirus PCR was negative. Troponin was less than 0.012. Chest x-ray on admission showed bilateral pleural effusions with cardiomegaly and bibasilar infiltrates. There is diffuse interstitial pattern, no pneumothorax. CT angios chest for pulmonary embolism was obtained to rule out PE, and was nondiagnostic for pulmonary embolus be on the central level. Additional cardiomegaly with anasarca, moderate right and small left plural effusion testing fluid overload and CHF. There was adjacent collapse of the right middle and right lower lobe and additional collapse and consolidation of the basilar left lower lobe. Current antibiotic coverage is with Unasyn and vancomycin, one blood culture set collected on 03/27/2020 showed Staphylococcus aureus, and group B strep agalactiae, wound cultures from right foot show many gram-positive cocci, moderate PMNs, many gram-negative bacilli and few gram-positive bacilli, final cultures pending. Patient has been afebrile, she is on 6 L of oxygen right now, her pulse ox is 93%, she is extremely weak and appears to be debilitated, her right foot is wrapped, and is draining through the dressings serous fluid. We spoke to her about her chest x-ray and CTA chest findings and spoke to her about possibility of draining the right pleural effusion and patient is agreeable to proceed. Her renal function slightly worsened on today's labs, BUN is 81, and creatinine is 1.31. No diuretics on board, cardiology consultation is pending, an echocardiogram has already been ordered. The patient is seen today 03/29/2020 in follow-up on the selective care unit. She is currently resting in bed. Awake and alert in no acute distress. Maintaining O2 saturations in the 90s on 4 L/m per nasal cannula. She's been afebrile. Hemodynamically stable. She did have a hemoglobin of 6.6 this morning. She is receiving a unit of packed red blood cells currently. Blood cultures were positive for Staphylococcus aureus, strep agalactiae group B. Right foot cultures pending. Pleural fluid cultures pending. Fluid is transudate with LDH 53 total protein 1.3. White count 29.0. Sodium 138. Potassium 3.9. Bicarb 21. Creatinine 1.28. She is currently on Unasyn and vancomycin. ID is on the case. The patient is seen today 03/30/2020 in follow-up on the selective care unit. She is awake and alert in no acute distress. Resting in bed. Maintaining O2 saturations in the mid 90s on 3 L/m per nasal cannula. She's afebrile. Hemodynamically stable. She did undergo amputation of the right foot yesterday secondary to wet gangrene with gas-forming organisms and necrotizing fasciitis. Postoperative day #1. White count 25.6. Hemoglobin 8.7. Sodium 137. Potassium 4.3. Bicarb 19. Creatinine 1.14. She is on Unasyn and vancomycin. The patient is seen today 03/31/2020 in follow-up on the selective care unit. She is currently laying flat in bed. Awake and alert in no acute distress. Maintaining O2 saturations in the 90s on 2 L/m per nasal cannula. She's been afebrile. Hemodynamically stable. She is status post 2 units of packed red blood cells this admission. Current hemoglobin 8.9. Pleural fluid culture is reveal no growth. She did undergo amputation of the right foot secondary to wet gangrene with gas-forming organisms and necrotizing fasciitis. Postoperative day #2. White count 23.4. Sodium 142. Potassium 3.7. Creatinine 1.08. She remains on vancomycin and Unasyn. Lovenox for DVT prophylaxis. Objective - Vital Signs Vital signs: Vital Signs Temp 97.5 F L 03/31/20 11:28 Pulse 70 03/31/20 08:00 Resp 16 03/31/20 11:28 BP 117/71 03/31/20 11:28 Pulse Ox 94 L 03/31/20 11:28 Intake & Output 03/30/20 03/31/20 03/31/20 18:59 06:59 18:59 Intake Total 240 295 Output Total 500 150 Balance -500 90 295 Weight 45 kg Intake: Intake, IV Titration 295 Amount Sodium Chloride 0.9% 1, 45 000 ml @ 75 mls/hr IV . [id number] JERRELL Rx#:[id number] Vancomycin 1,250 mg In 250 Sodium Chloride 0.9% 250 ml @ 125 mls/hr IVPB Q16H JERRELL Rx#:[id number] Oral 240 Output: Urine 500 150 Other: # Voids 1 2 # Bowel Movements 1 1 - Exam GENERAL EXAM: Alert, chronically ill-looking 59-year-old female patient, that appears much older than stated age, resting in bed, quite weak, currently on 2 L of oxygen with a pulse ox of 94% HEAD: Normocephalic/atraumatic. EYES: Normal reaction of pupils, equal size. Conjunctiva pink, sclera white. NOSE: Clear with pink turbinates. THROAT: No erythema or exudates. NECK: No masses, no JVD, no thyroid enlargement, no adenopathy. CHEST: No chest wall deformity. Symmetrical expansion. LUNGS: Diminished air entry and dullness to percussion at the left lower base, with crackles left greater than right. CVS: Regular rate and rhythm, normal S1 and S2, no gallops, no murmurs, no rubs ABDOMEN: Soft, nontender. No hepatosplenomegaly, normal bowel sounds, no guarding or rigidity. EXTREMITIES: No clubbing, right lower extremity is wrapped, status post amputation of the right foot MUSCULOSKELETAL: Muscle strength and tone normal. SPINE: No scoliosis or deformity SKIN: No rashes CENTRAL NERVOUS SYSTEM: No focal deficits, tone is normal in all 4 extremities. PSYCHIATRIC: Alert and oriented -3. Appropriate affect. Intact judgment and insight. - Labs CBC & Chem 7: 03/31/20 06:55 03/31/20 06:55 Labs: Abnormal Lab Results - Last 24 Hours (Table) 03/30/20 03/30/20 03/30/20 Range/Units 11:53 17:23 20:20 WBC (3.8-10.6) k/uL RBC (3.80-5.40) m/uL Hgb (11.4-16.0) gm/dL Hct (34.0-46.0) % MCHC (31.0-37.0) g/dL RDW (11.5-15.5) % Chloride (98-107) mmol/L BUN (7-17) mg/dL Creatinine (0.52-1.04) mg/dL Glucose (74-99) mg/dL POC Glucose (mg/dL) 218 H 239 H 223 H (75-99) mg/dL Calcium (8.4-10.2) mg/dL 03/31/20 03/31/20 03/31/20 Range/Units 06:15 06:31 06:46 WBC (3.8-10.6) k/uL RBC (3.80-5.40) m/uL Hgb (11.4-16.0) gm/dL Hct (34.0-46.0) % MCHC (31.0-37.0) g/dL RDW (11.5-15.5) % Chloride (98-107) mmol/L BUN (7-17) mg/dL Creatinine (0.52-1.04) mg/dL Glucose (74-99) mg/dL POC Glucose (mg/dL) 43 L 40 L 134 H (75-99) mg/dL Calcium (8.4-10.2) mg/dL 03/31/20 03/31/20 Range/Units 06:55 06:55 WBC 23.4 H (3.8-10.6) k/uL RBC 3.34 L (3.80-5.40) m/uL Hgb 8.9 L (11.4-16.0) gm/dL Hct 28.9 L (34.0-46.0) % MCHC 30.6 L (31.0-37.0) g/dL RDW 17.3 H (11.5-15.5) % Chloride 118 H (98-107) mmol/L BUN 51 H (7-17) mg/dL Creatinine 1.08 H (0.52-1.04) mg/dL Glucose 105 H (74-99) mg/dL POC Glucose (mg/dL) (75-99) mg/dL Calcium 7.6 L (8.4-10.2) mg/dL Microbiology - Last 24 Hours (Table) 03/27/20 16:08 Anaerobic Culture - Final Foot - Right Anaerobic Gm Negative Bacilli 03/28/20 14:40 Gram Stain - Preliminary Pleural Fluid Body Fluid Culture - Preliminary 03/28/20 14:40 Anaerobic Culture - Preliminary Pleural Fluid 03/27/20 16:08 Gram Stain - Final Foot - Right Wound Culture - Final Staphylococcus aureus Shasha albicans 03/27/20 10:57 Gram Stain - Final Foot - Right Wound Culture - Final Staphylococcus aureus Strep agalactiae - (group b) Assessment and Plan Assessment: #1. Bilateral pleural effusions, right greater than left, with significant atelectasis of the right middle and right lower lobes, status post right-sided thoracentesis today on 03/28/2020 and removal of 1250 mL of clear yellow pleural fluid which was sent for analysis, cytology and cultures, this is transudate in nature related to diastolic CHF exacerbation. Pleural fluid cultures revealing no growth to date. #2. Acute exacerbation of diastolic congestive heart failure, preserved LV systolic function with ejection fraction 66 5% #3. Right diabetic foot infection, status post amputation on 03/29/2020. Currently on vancomycin and Unasyn #4. Poorly controlled diabetes mellitus type II with diabetic neuropathy and nonhealing right foot wound. Patient presented with significant hyperglycemia with blood sugar in the 700s, improved on Levemir #5. Acute kidney injury #6. Hypertension #7. Hyperlipidemia #8. Depression #9. Former smoker #10. Medical debility Plan: The patient was seen and evaluated by Dr. Cordoba Remains on vancomycin and Unasyn Repeat chest x-ray in a.m. We will continue to follow I, the cosigning physician, performed a history & physical examination of the patient. Lungs sounds crackles in the bilateral posterior bases left greater than right. Maintaining good O2 saturations in the 90s on 2 L nasal cannula. I discussed the assessment and plan of care with my nurse practitioner, Corine Santacruz. I attest to the above note as dictated by her.
--- NOTE | 2020-03-31 12:18 | P.PN ---
Subjective Progress Note Date: 03/31/20 This is a pleasant 59-year-old female with known history of diabetes, hyperlipidemia, hypertension who presented with hyperglycemia and right foot ulcer. Patient does have a right foot ulcer that is chronic and nonhealing. She is scheduled today at 1:30 PM to undergo amputation by Dr. Lopez due to nonhealing ulcer and critical limb ischemia. We were counseled on the patient secondary to chest discomfort. Patient denies any chest discomfort at this time. Echocardiogram with Doppler showed normal LV systolic function with an ejection fraction of 60-65%, mildly enlarged RV, trace to mild MR, mild TR and mild pulmonary hypertension. Yesterday she had CT scan of the chest which showed severe breathing motion artifacts, cardiomegaly with anasarca and moderate right and small left pleural effusions, correlate for fluid overload CHF, and adjacent collapse of the right middle and right lower lobes, additional collapse/consolidation of the basilar left lower lobe, correlate to exclude underlying pneumonia. She subsequently underwent ultrasound of the chest and thoracentesis with 1200 mL drained from the right and sent for diagnostic studies. 03/31/2020 Patient was seen and examined resting currently in bed. Feels better compared to yesterday. Her breathing is stable post thoracentesis. Renal function is a bit better. She is postop day 2 status post right BKA. She denies any chest discomfort, dizziness or palpitations. Objective - Vital Signs Vital signs: Vital Signs Temp 97.5 F L 03/31/20 11:28 Pulse 70 03/31/20 08:00 Resp 16 03/31/20 11:28 BP 117/71 03/31/20 11:28 Pulse Ox 94 L 03/31/20 11:28 Intake & Output 03/30/20 03/31/20 03/31/20 18:59 06:59 18:59 Intake Total 240 295 Output Total 500 150 Balance -500 90 295 Weight 45 kg Intake: Intake, IV Titration 295 Amount Sodium Chloride 0.9% 1, 45 000 ml @ 75 mls/hr IV . [id number] [facility]ERRELL Rx#:[id number] Vancomycin 1,250 mg In 250 Sodium Chloride 0.9% 250 ml @ 125 mls/hr IVPB Q16H [facility]ER[facility] Rx#:[id number] Oral 240 Output: Urine 500 150 Other: # Voids 1 2 # Bowel Movements 1 1 - Exam PHYSICAL EXAMINATION: HEENT: Head is atraumatic, normocephalic. Pupils equal, round. Neck is supple. There is no elevated jugular venous pressure. HEART EXAMINATION: Heart sounds regular, S1 and S2 with a systolic murmur. CHEST EXAMINATION: Lungs are clear to auscultation and precussion. No chest wall tenderness is noted on palpation or with deep breathing. ABDOMEN: Soft, nontender. Bowel sounds are heard. No organomegaly noted. EXTREMITIES: Decreased peripheral pulses on the left side with right BKA noted with dressing intact. NEUROLOGIC patient is awake, alert and oriented x3. . - Labs CBC & Chem 7: 03/31/20 06:55 03/31/20 06:55 Labs: Abnormal Lab Results - Last 24 Hours (Table) 03/30/20 03/30/20 03/31/20 Range/Units 17:23 20:20 06:15 WBC (3.8-10.6) k/uL RBC (3.80-5.40) m/uL Hgb (11.4-16.0) gm/dL Hct (34.0-46.0) % MCHC (31.0-37.0) g/dL RDW (11.5-15.5) % Chloride (98-107) mmol/L BUN (7-17) mg/dL Creatinine (0.52-1.04) mg/dL Glucose (74-99) mg/dL POC Glucose (mg/dL) 239 H 223 H 43 L (75-99) mg/dL Calcium (8.4-10.2) mg/dL 03/31/20 03/31/20 03/31/20 Range/Units 06:31 06:46 06:55 WBC (3.8-10.6) k/uL RBC (3.80-5.40) m/uL Hgb (11.4-16.0) gm/dL Hct (34.0-46.0) % MCHC (31.0-37.0) g/dL RDW (11.5-15.5) % Chloride 118 H (98-107) mmol/L BUN 51 H (7-17) mg/dL Creatinine 1.08 H (0.52-1.04) mg/dL Glucose 105 H (74-99) mg/dL POC Glucose (mg/dL) 40 L 134 H (75-99) mg/dL Calcium 7.6 L (8.4-10.2) mg/dL 03/31/20 03/31/20 Range/Units 06:55 12:05 WBC 23.4 H (3.8-10.6) k/uL RBC 3.34 L (3.80-5.40) m/uL Hgb 8.9 L (11.4-16.0) gm/dL Hct 28.9 L (34.0-46.0) % MCHC 30.6 L (31.0-37.0) g/dL RDW 17.3 H (11.5-15.5) % Chloride (98-107) mmol/L BUN (7-17) mg/dL Creatinine (0.52-1.04) mg/dL Glucose (74-99) mg/dL POC Glucose (mg/dL) 165 H (75-99) mg/dL Calcium (8.4-10.2) mg/dL Microbiology - Last 24 Hours (Table) 03/27/20 16:08 Anaerobic Culture - Final Foot - Right Anaerobic Gm Negative Bacilli 03/28/20 14:40 Gram Stain - Preliminary Pleural Fluid Body Fluid Culture - Preliminary 03/28/20 14:40 Anaerobic Culture - Preliminary Pleural Fluid 03/27/20 16:08 Gram Stain - Final Foot - Right Wound Culture - Final Staphylococcus aureus Shasha albicans 03/27/20 10:57 Gram Stain - Final Foot - Right Wound Culture - Final Staphylococcus aureus Strep agalactiae - (group b) Assessment and Plan Assessment: #1 acute limb ischemia with nonhealing ulcer of the right foot, status post right BKA #2 abnormal EKG with possibility of inferior wall SD of unknown age, no evidence of segmental wall motion abnormalities on echocardiogram #3 pleural effusion status post thoracentesis being followed by pulmonary #4 hypertension #5 hyperlipidemia #6 diabetes mellitus #7 anemia #8 chronic kidney disease Plan: From a cardiac standpoint, medications were reviewed and we will continue the same. At this time we will follow the patient on an as-needed basis please do not hesitate to contact us with questions. ASSET MANAGEMENT ANALYST note has been reviewed, I agree with a documented findings and plan of care. Patient was seen and examined.
[2020-03-31] MEDS: AMPICILLIN-SULBACTAM 3 GM in SODIUM CHLORIDE 0.9% 100 ML IVPB SCH ×2 (12:33→23:49)
[2020-03-31] MEDS ORDERED: DEXTROSE 5%-0.9% NACL 1,000 ML IV SCH (13:15)
[2020-03-31] MEDS: ALPRAZolam 0.25 MG TAB PO PRN (15:37)
--- NOTE | 2020-03-31 16:03 | P.PN ---
Progress Note - Text Progress Note Date: 03/31/20 Chief Complaint: right foot infection History of presenting complaint: This is a 59-year-old patient who follows with Dr. Og. Chronic stable medical conditions include depression, hypertension, hyperlipidemia, diabetes, peripheral neuropathy. Patient rather tired. Not able to give to her history. States she injured her foot about a week ago and the motor wound on the right foot. She has some neuropathy and decreased sensation. It has become inflamed and draining not getting better. Hence she presented here. Denies any obvious fever and chills. In the ER glucose was found to be 737. Started on insulin drip. Patient somewhat lethargic but able to answer questions. Admitted with abscess of the right foot causing sepsis, metabolic encephalopathy, pneumonia, uncontrolled diabetes requiring insulin drip. Please started on IV fluids, vancomycin, Unasyn.Blood cultures coming back positive for staph aureus and Streptococcus agalactiae. 1200 mL of right pleural effusion was drained. March 29 right above ankle amputation carried out.patient received 2 units of blood. Today-. Has started vomiting yesterday. Responded well to IV Reglan. This morning had an show for breakfast and 50% of for breakfast. Feeling better. Pain controlled Review of systems: Was done for constitutional, cardiovascular, GI, pulmonary. relevant finding as above Active Medications Acetaminophen (Tylenol Tab) 650 mg PO Q6HR PRN PRN Reason: Mild Pain or Fever > 100.5 Hydrocodone Bitart/Acetaminophen (Kathleen 5-325) 1 each PO Q6HR PRN PRN Reason: Pain Al Hydroxide/Mg Hydroxide (Maalox) 15 ml PO Q6HR PRN PRN Reason: Indigestion Alprazolam (Xanax) 0.25 mg PO Q6HR PRN PRN Reason: Anxiety Last Admin: 03/31/20 15:37 Dose: 0.25 mg Documented by: Aspirin (Aspirin) 81 mg PO DAILY [facility] Last Admin: 03/31/20 08:55 Dose: 81 mg Documented by: Atorvastatin Calcium (Lipitor) 40 mg PO HS [facility] Last Admin: 03/30/20 22:58 Dose: Not Given Documented by: Buspirone HCl (Buspar) 10 mg PO BID [facility] Last Admin: 03/31/20 08:55 Dose: 10 mg Documented by: Calcium Carbonate/Glycine (Tums) 1,000 mg PO Q4HR PRN PRN Reason: Dyspepsia Last Admin: 03/27/20 16:09 Dose: 1,000 mg Documented by: Enoxaparin Sodium (Lovenox) 30 mg SQ DAILY [facility] Last Admin: 03/31/20 08:55 Dose: 30 mg Documented by: Fluvoxamine Maleate (Luvox) 25 mg PO DAILY [facility] Last Admin: 03/31/20 08:55 Dose: 25 mg Documented by: Hydromorphone HCl (Dilaudid) 0.5 mg IVP Q4HR PRN PRN Reason: Pain Last Admin: 03/30/20 22:00 Dose: 0.5 mg Documented by: Ampicillin Sodium/Sulbactam (Sodium 3 gm/ Sodium Chloride) 100 mls @ 200 mls/hr IVPB Q12H [facility] Last Admin: 03/31/20 12:33 Dose: 200 mls/hr Documented by: Vancomycin HCl 1,250 mg/ (Sodium Chloride) 250 mls @ 125 mls/hr IVPB Q24HR [facility] Insulin Aspart (Novolog) 0 unit SQ [facility]; Protocol Last Admin: 03/31/20 12:29 Dose: 1 unit Documented by: Insulin Detemir (Levemir) 20 unit SQ [facility] Last Admin: 03/30/20 21:23 Dose: 20 unit Documented by: Lactulose (Cephulac) 20 gm PO DAILY PRN PRN Reason: Constipation Lamotrigine (Lamictal) 100 mg PO DAILY [facility] Last Admin: 03/31/20 08:55 Dose: 100 mg Documented by: Smarr Carbonate (Smarr Carbonate) 300 mg PO DAILY [facility] Last Admin: 03/31/20 08:55 Dose: 300 mg Documented by: Magnesium Hydroxide (Milk Of Magnesia) 2,400 mg PO DAILY PRN PRN Reason: Constipation Melatonin (Melatonin) 3 mg PO HS PRN PRN Reason: Insomnia Metoclopramide HCl (Reglan) 10 mg PO [facility] Metoprolol Tartrate (Lopressor) 25 mg PO BID [facility] Last Admin: 03/31/20 08:55 Dose: 25 mg Documented by: Miscellaneous Information (Potassium Per Protocol) 1 each MISCELLANE DAILY PRN; Protocol PRN Reason: Per Protocol Miscellaneous Information (Magnesium Per Protocol) 1 each MISCELLANE DAILY PRN; Protocol PRN Reason: Per Protocol Multivitamins (Theragran) 1 each PO DAILY [facility] Last Admin: 03/31/20 08:55 Dose: 1 each Documented by: Naloxone HCl (Narcan) 0.2 mg IV Q2M PRN PRN Reason: Opioid Reversal Ondansetron HCl (Zofran) 4 mg IVP Q6HR PRN PRN Reason: Nausea And Vomiting Last Admin: 03/30/20 18:04 Dose: 4 mg Documented by: Pantoprazole Sodium (Protonix) 40 mg PO AC-BID [facility] Last Admin: 03/31/20 10:55 Dose: 40 mg Documented by: Sodium Bicarbonate (Sodium Bicarbonate Tab) 650 mg PO TID [facility] Last Admin: 03/31/20 08:55 Dose: 650 mg Documented by: Physical examination: VITAL SIGNS: 97.5, 70, 16, 120 270, 91% on room air GENERAL:propped up in bed, awake, tired EYES: Pupils equal. Conjunctiva normal. HEENT: External appearance of nose and ears normal, oral cavity very dry mucous membranes. NECK: JVD not raised; masses not palpable. HEART: First and second heart sounds are normal; mild edema. LUNGS: Respiratory rate increased, diminished breath sounds. ABDOMEN: Soft, nontender, liver spleen not palpable, no masses palpable. PSYCH: Answering questions EXTREMITIES: Right above ankle amputation with a dressing INVESTIGATIONS, reviewed in the clinical context: White count 23.4 hemoglobin 8.9 potassium 3.7 bun 51 creatinine 1.08 Previous testing Potassium 3.918T creatinine 1.39 Chest CTA-severe breathing motion artifact, nondiagnostic for PE. Cardiomegaly with some anasarca, moderate right pleural effusion, adjacent collapse of the right middle and right lower lobes. Etc. Previous testing White count 32.3 hemoglobin 8.2 platelets 490 left shift potassium 4.1 bun 81 creatinine 1.22, glucose 737 albumin 2.3 Serum acetone negative EKG tracing personally reviewed by me-atrial flutter with [address] segment changes in anterior leads Chest x-ray film personally reviewed by me-fluid in the fissure, possible infiltrate Blood culture-MSSA and Streptococcus agalactiae group B 2-D echocardiogram-EF 60-65% Assessment: -Acute right foot abscess with cellulitis and possible underlying osteomyelitis, acute.-Status post right above ankle amputation on March 29 -Sepsis with blood cultures positive for Staphylococcus aureus and Streptococcus agalactiae -Bilateral pneumonia suspect gram-negative organism -Acute congestive heart failure exacerbation from diastolic dysfunction EF 60- 65% -Pleural effusion as per pulmonary felt to be secondary to CHF/transudate 12 50 mL removed right side - right middle and right lower lobe collapse -Diabetes mellitus type 2, chronically insulin, uncontrolled with hypoglycemia this morning. -Essential hypertension -Hyperlipidemia -Acute metabolic encephalopathy from sepsis, improving -Diabetic peripheral neuropathy -Symptomatic anemia possibly combination of underlying renal failure and sepsis- requiring 2 units of blood transfusion -Severe hypoalbuminemia, secondary to moderate protein calorie malnutrition Plan: -On Unasyn. IV fluids. Vancomycin. Change IV Reglan to by mouth Reglan. Discussed with the nurse and the patient. Patient started to eat better. PTOT consulted. We'll DC Levemir. Start the patient on metformin.
[2020-03-31 17:09] LABS: Glucose,Whole Blood 351 mg/dL (75-99)
[2020-03-31] MEDS: METOCLOPRAMIDE 10 MG TAB PO SCH ×2 (17:46→20:33)
[2020-03-31] MEDS: metFORMIN 500 MG TAB PO SCH (17:46)
[2020-03-31 20:09] LABS: Glucose,Whole Blood 440 mg/dL (75-99)
[2020-03-31] MEDS ORDERED: INSULIN ASPART (NovoLOG) 100 UNIT/ML VIAL SQ ONE (20:32)
[2020-03-31] MEDS: ATORVASTATIN 40 MG TAB PO SCH (20:34)
[2020-03-31] MEDS ORDERED: INSULIN DETEMIR (LEVEMIR) 100 UNIT/ML SYR SQ SCH (21:00)
--- NOTE | 2020-03-31 21:09 | XR ---
EXAMINATION TYPE: XR chest 1V portable DATE OF EXAM: 03/31/2020 COMPARISON: 03/28/2020 HISTORY: Thoracentesis TECHNIQUE: Single view FINDINGS: Heart is enlarged. There is pulmonary vascular congestion. There is blunting of the costoph renic angles. There are chest leads. Bony thorax is intact. IMPRESSION: Congestive heart failure with pleural fluid increased compared to last exam. Lower lobe p neumonia is probably present and appears increased compared to old exam.
[2020-03-31] MEDS: FUROSEMIDE 10 MG/ML 4 ML VIAL IV SCH (21:48)
--- NOTE | 2020-04-01 00:12 | CONS ---
CONSULTATION DATE OF DICTATION: 03/31/2020 REASON FOR CONSULTATION: Coffee-ground emesis. HISTORY OF PRESENT ILLNESS: The patient is a 59-year-old pleasant white female with history of diabetes mellitus, hypertension, hyperlipidemia admitted to hospital with right foot ulcer and subsequently was diagnosed with abscess. She underwent right above ankle amputation by Dr. Lopez 2 days ago. Following the surgery apparently the patient did have a couple of episodes of coffee-ground emesis and dropped her hemoglobin, requiring 2 units of blood transfusion. We are hence consulted in regards to this issue. The patient today is doing well. She denies any abdominal pain. No nausea, vomiting. As per the nursing staff, she did not have any more episodes of coffee-ground emesis. In fact, she had a regular diet this morning, tolerating well. She denies any symptoms. PAST MEDICAL HISTORY: Significant for diabetes mellitus, hypertension, hyperlipidemia, peripheral vascular disease, gastroesophageal reflux disease. MEDICATIONS: Medications at home include insulin, lithium, multivitamin, Norvasc, BuSpar, Luvox, Lamictal. ALLERGIES: Allergies to KEFLEX. PAST SURGICAL HISTORY: Recent amputation of the right leg. FAMILY HISTORY: Mother has diabetes mellitus and stroke. Father had Parkinson disease. REVIEW OF SYSTEMS: CARDIOPULMONARY: She denies any chest pain or shortness of breath. GENITOURINARY: No dysuria or hematuria. MUSCULOSKELETAL: Right above ankle amputation 2 days ago. NEUROLOGY: Unremarkable. PSYCHIATRIC: Unremarkable. ENT/VISION: Unremarkable. CONSTITUTIONAL: She denies any fever. No fever, chills, night sweats. GI: As mentioned above. HEMATOLOGY: Anemia. PHYSICAL EXAMINATION: She appears comfortable. No apparent distress. Vital signs are stable. Blood pressure is 112/86, pulse rate 82 per minute and afebrile. HEENT EXAMINATION: Unremarkable. Conjunctivae pink. Sclerae anicteric. Oral cavity, no lesions. NECK: No JVD or lymph node enlargement. CHEST: Clear to auscultation. HEART: Regular rate and rhythm. ABDOMEN: Soft, nontender, nondistended. Bowel sounds are positive. No organomegaly. EXTREMITIES: No pedal edema. SKIN: No rashes. NEURO: She is alert and oriented x3. No focal deficits. LABS: WBC 23.4, hemoglobin 8.9, platelets 356. Two days ago hemoglobin was down to 8.1. She received 2 units of PRBC transfusion. BUN is 51, creatinine 1.08. IMPRESSION: 1. Coffee-grounds emesis 2 episodes yesterday. She received 2 units of PRBC transfusion following surgery 2 days ago. Presently hemoglobin is stable at 8.9 g/dL. As per the nursing staff, she did not have any further episodes of coffee- ground emesis. In fact, she is on a regular diet tolerating well. She has no prior history of peptic ulcer disease or recent NSAID use. 2. Right foot abscess on broad-spectrum antibiotics, status post right above ankle amputation 2 days ago, doing well. 3. History of diabetes mellitus. 4. Hypertension and hyperlipidemia. RECOMMENDATIONS: 1. Start on Protonix 40 mg p.o. twice daily. 2. Monitor CBC on a daily basis. 3. Since she does not have any evidence of active ongoing bleeding, we have no plans for any endoscopic intervention at the present time. 4. We will follow with you closely. Thank you for this consultation. BOSTON / KAYLAN: [id number] /
--- NOTE | 2020-04-01 01:12 | PN ---
PROGRESS NOTE DATE OF SERVICE: 03/31/2020 REASON FOR FOLLOWUP: Right diabetic foot infection and bacteremia. INTERVAL HISTORY: The patient is currently afebrile. The patient is breathing comfortably. Denies having any chest pain, cough. No abdominal pain. Pain to the right leg is currently controlled. PHYSICAL EXAMINATION: Blood pressure 121/68 with a pulse of 84, temperature 98.3. She is 93% on room air. General description is an elderly female lying in bed in no distress. RESPIRATORY SYSTEM: Unlabored breathing, clear to auscultation anteriorly. HEART: S1, S2. Regular rate and rhythm. ABDOMEN: Soft, no tenderness. Right leg is currently dressed up. No obvious drainage on the dressing. LABS: Hemoglobin 8.9, white count 23.4, creatinine 1.08. DIAGNOSTIC IMPRESSION AND PLAN: Patient with right diabetic foot infection in this patient with culture positive for MSSA and Streptococcus agalactiae, and anaerobic Gram-negative bacilli. The patient does have CEPHALEXIN allergy covered with the vancomycin and Unasyn to continue. Blood cultures repeated to document clearance of bacteremia and continue supportive care. MMODL / IJN: [id number] /
[2020-04-01 06:09] LABS: Glucose,Whole Blood 95 mg/dL (75-99)
[2020-04-01] MEDS: INSULIN ASPART (NovoLOG) 100 UNIT/ML VIAL SQ SCH ×3 (06:11→23:45)
[2020-04-01] MEDS: METOCLOPRAMIDE 10 MG TAB PO SCH (06:51)
[2020-04-01] MEDS: PANTOPRAZOLE 40 MG TABLET PO SCH (06:52)
[2020-04-01] MEDS: metFORMIN 500 MG TAB PO SCH (06:52)
[2020-04-01 07:26] LABS: Anisocytosis Slight; Basophils % (A) 0 %; Eosinophils # (A) 0.1 k/uL (0-0.7); Eosinophils % (A) 1 %; HCT 32.3 % (34.0-46.0); HGB 10.1 gm/dL (11.4-16.0); Hypochromasia Marked; Lymphocytes # (A) 1.3 k/uL (1.0-4.8); Lymphocytes % (A) 6 %; MCH 27.5 pg (25.0-35.0); MCHC 31.2 g/dL (31.0-37.0); MCV 88.1 fL (80.0-100.0); Mean Platelet Volume 7.5; Monocytes # (A) 0.6 k/uL (0-1.0); Monocytes % (A) 3 %; Neutrophils # (A) 18.2 k/uL (1.3-7.7); Neutrophils % (A) 90 %; Platelet Count 392 k/uL (150-450); Poikilocytosis Slight; RBC 3.66 m/uL (3.80-5.40); RDW 16.8 % (11.5-15.5); WBC 20.3 k/uL (3.8-10.6)
[2020-04-01 07:38] LABS: Calcium 7.7 mg/dL (8.4-10.2); Potassium 4.1 mmol/L (3.5-5.1)
--- NOTE | 2020-04-01 08:18 | XR ---
EXAMINATION TYPE: XR chest 1V portable DATE OF EXAM: 04/01/2020 Comparison: 03/31/2020 Clinical History: 59-year-old female with CHF Findings: Heart moderately enlarged. Interstitial and perihilar opacities. Bibasilar opacities are also demonst rated with underlying effusions. External artifact projects over the mid and lower chest. Impression: CHF with interstitial pulmonary edema. Moderate right greater than left effusions with adjacent atele ctasis and/or consolidation slightly increased.
[2020-04-01] MEDS: LITHIUM CARBONATE 300 MG CAP PO SCH (08:29)
[2020-04-01] MEDS: FUROSEMIDE 10 MG/ML 4 ML VIAL IV SCH (08:29)
[2020-04-01] MEDS: VANCOMYCIN 1,250 MG in SODIUM CHLORIDE 0.9% 250 ML IVPB SCH (08:30)
[2020-04-01] MEDS: SODIUM BICARBONATE TAB 650 MG TAB PO SCH (08:30)
[2020-04-01] MEDS: busPIRone HCl 10 MG TAB PO SCH ×2 (08:30→22:57)
[2020-04-01] MEDS: METOPROLOL TARTRATE 25 MG TAB PO SCH (08:30)
[2020-04-01] MEDS: lamoTRIgine 100 MG TAB PO SCH (08:30)
[2020-04-01] MEDS: ASPIRIN 81 MG PO SCH (08:30)
[2020-04-01] MEDS: MULTIVITAMINS, THERA 1 EACH TAB PO SCH (08:30)
[2020-04-01] MEDS ORDERED: EPINEPHrine 10 ML SYRINGE (0.1 MG/ML) ONE (10:23)
[2020-04-01] MEDS ORDERED: SODIUM BICARB 8.4% 50 ML SYR (1 MEQ/ML) ONE (10:23)
[2020-04-01 10:32] LABS: Glucose,Whole Blood 145 mg/dL (75-99)
[2020-04-01] MEDS ORDERED: SODIUM BICARB 8.4% 50 ML SYR (1 MEQ/ML) IV STA (10:45)
[2020-04-01 11:00] LABS: ABG Base Excess -5.5 mmol/L; ABG HCO3 23 mmol/L (21-25); ABG Oxygen Saturation 78.5 % (94-97); ABG PCO2 61 mmHg (35-45); ABG TCO2 25 mmol/L (19-24); Allen Test Performed? Yes
[2020-04-01 11:03] LABS: ABG PH 7.18 (7.35-7.45); ABG PO2 53 mmHg (83-108)
[2020-04-01 11:06] LABS: Glucose,Whole Blood 140 mg/dL (75-99)
[2020-04-01] MEDS ORDERED: CISATRACURIUM 2 MG/ML 5 ML VIAL IV ONE ×4 (11:17→13:20)
[2020-04-01] MEDS ORDERED: propofoL 100 ML IV ONE (11:18)
[2020-04-01] MEDS: IPRATROPIUM-ALBUTEROL 3 ML NEB INHALATION SCH ×4 (11:23→23:32)
--- NOTE | 2020-04-01 11:24 | XR ---
EXAMINATION TYPE: XR chest 1V portable DATE OF EXAM: 04/01/2020 Comparison: 04/01/2020 Clinical History: 59-year-old female intubated, post intubation exam Findings: There is right mainstem intubation. ET tube can be pulled back by 4 cm and reassessed on follow. NG t ube courses below the diaphragm. Heart mildly enlarged. Diffuse bilateral airspace disease increased from prior. Impression: 1. Right mainstem intubation. Called to nurse Carlson on 2SICU at 11:20 AM. Nurse reports that the ET tube has been pulled back 2 cm. Note that this may leave the ET tube tip directly at the mela. Fol low-up radiograph recommended to reassess. 2. Worsening diffuse bilateral airspace disease/pulmonary edema/ARDS.
[2020-04-01 11:35] LABS: Partial Thromboplastin Time 25.1 sec (22.0-30.0); Prothrombin Time 10.5 sec (9.0-12.0)
[2020-04-01 11:37] LABS: D-Dimer >35.20 mg/L FEU (<0.60)
[2020-04-01 11:43] LABS: Amorphous Sediment,Urine Rare /hpf; Appearance,Urine Cloudy (Clear); Bacteria,Urine Occasional /hpf; Bilirubin,Urine Negative (Negative); Blood,Urine Negative (Negative); Color,Urine Light Yellow; Glucose,Urine (UA) Negative (Negative); Hyaline Casts,Urine 4 /lpf (0-2); Ketones,Urine Negative (Negative); Leukocyte Esterase,Urine Negative (Negative); Mucus,Urine Rare /hpf; Nitrite,Urine Negative (Negative); Protein,Urine 1+ (Negative); RBC,Urine 2 /hpf (0-5); Squamous Epithelial Cell,Urine <1 /hpf (0-4); Urobilinogen,Urine <2.0 mg/dL (<2.0); WBC,Urine 3 /hpf (0-5)
[2020-04-01] MEDS: SODIUM CHLORIDE 0.9% 1,000 ML IV SCH ×3 (11:51→22:45)
[2020-04-01 11:57] LABS: Calcium 7.3 mg/dL (8.4-10.2); Magnesium 2.3 mg/dL (1.6-2.3); Phosphorus 4.5 mg/dL (2.5-4.5); Potassium 4.6 mmol/L (3.5-5.1); Total Bilirubin 0.4 mg/dL (0.2-1.3); Total Protein 4.5 g/dL (6.3-8.2)
[2020-04-01 12:04] LABS: ABG HCO3 21 mmol/L (21-25); ABG Oxygen Saturation 88.8 % (94-97); ABG PCO2 48 mmHg (35-45); ABG PH 7.25 (7.35-7.45); ABG PO2 60 mmHg (83-108); ABG TCO2 23 mmol/L (19-24); Allen Test Performed? Yes
[2020-04-01 12:13] LABS: Anisocytosis Slight; HCT 36.4 % (34.0-46.0); HGB 10.7 gm/dL (11.4-16.0); Hypochromasia Marked; MCH 26.6 pg (25.0-35.0); MCHC 29.3 g/dL (31.0-37.0); MCV 90.8 fL (80.0-100.0); Mean Platelet Volume 8.2; Platelet Count 519 k/uL (150-450); Poikilocytosis Slight; RBC 4.01 m/uL (3.80-5.40); RDW 17.2 % (11.5-15.5); WBC 35.6 k/uL (3.8-10.6)
--- NOTE | 2020-04-01 12:18 | XR ---
EXAMINATION TYPE: XR chest 1V portable DATE OF EXAM: 04/01/2020 Comparison: 04/01/2020 Clinical History: 59-year-old female Tube placement Findings: ET tube tip satisfactory. Left IJ CVC tip in the cavoatrial junction region. NG tube courses below th e diaphragm. Heart borderline enlarged. Diffuse bilateral airspace disease, left greater than right. Underlying cause moderate left and trace right pleural effusions. Impression: 1. Satisfactory ET tube after repositioning. 2. Correlate for CHF with pulmonary edema. The pulmonary edema shows some improvement from earlier to day. 3. Small to moderate left and trace right pleural effusions with adjacent atelectasis and/or consolid ation.
[2020-04-01 12:34] LABS: Band Neutrophils % 3 %; Lymphocytes # (M) 2.85 k/uL (1.0-4.8); Metamyelocytes # (M) 0.36 k/uL (0); Metamyelocytes % 1 %; Monocytes # (M) 1.07 k/uL (0-1.0); Neutrophils % (M) 85 %; Nucleated Red Blood Cells 0 /100 WBC (0-0); Total Cells Counted 100
[2020-04-01] MEDS: NOREPINEPHRINE 4 MG in SODIUM CHLORIDE 0.9% 250 ML IV SCH ×2 (13:10→21:55)
--- NOTE | 2020-04-01 13:26 | P.PN ---
Subjective plan: Hospitalist covering for Dr. Rosales from 04/01/20 from records: This is a 59-year-old patient who follows with Dr. Og. Chronic stable medi liliam conditions include depression, hypertension, hyperlipidemia, diabetes, peripheral neuropathy. Patient rather tired. Not able to give to her history. States she injured her foot about a week ago and the motor wound on the right foot. She has some neuropathy and decreased sensation. It has become inflamed and draining not getting better. Hence she presented here. Denies any obvious fever and chills. In the ER glucose was found to be 737. Started on insulin drip. Patient somewhat lethargic but able to answer questions. Admitted with abscess of the right foot causing sepsis, metabolic encephalopathy, pneumonia, uncontrolled diabetes requiring insulin drip. Please started on IV fluids, vancomycin, Unasyn.Blood cultures coming back positive for staph aureus and Streptococcus agalactiae. 1200 mL of right pleural effusion was drained. March 29 right above ankle amputation carried out.patient received 2 units of blood. subjective 04/01/2020 I was going to see the patient this morning for the first time when LUIS GUNTER was called, so information were obtained from staff and records patient was admitted on 03/27 for sepsis, found to have right foot cellulitis/wet gangrene and abscess with possible osteomyelitis status post right above ankle amputation mild vascular surgery team on 03/29, also patient is found with bilateral pleural effusion, right more than left status post right thoracocentesis showed transudative fluid thought to be secondary to diastolic CHF with ejection fraction 60-65%. also patient had CTA of the chest showing possible circumferential wall thickeni ng of the distal esophagus, today patient was noticed of vomiting yellow substance as well as short of breath and shortly after that patient became pulseless and collapsed, LUIS GUNTER was called and last probably 5 minutes per records, with eventually patient intubated and sent to the ICU. Follow-up ABG 7 PMH low at 7.2, slightly high pCO2 48 and low pO2 of 60. chest x-rays showing pulmonary edema versus ARDS. Lactic acid was high at 3.6 and patient was started on normal saline at 100 mL/h, 1 L of MS is given as well patient is already on antibiotics by ID team with Unasyn and IV vancomycin. She was on Lasix 40 mg daily which is increased to 3 times daily. Also she is on oral Protonix twice daily. She is on glipizide 2.5 mg and metformin 500 mg 3 times a day and Levemir 20 units at at bedtime. blood culture growing MSSA and stripped ago TS. High ESR 111.WBC was 20.3, jumped up today to 30 5.6K. Hemoglobin is 10.7. Creatinine normal at 1.04 review of system: N/a, patient cannot provide information Active Medications Generic Name Dose Route Start Last Admin Trade Name Freq PRN Reason Stop Dose Admin Acetaminophen 650 mg 03/27/20 12:57 Tylenol Tab PO Q6HR PRN Mild Pain or Fever > 100.5 Hydrocodone Bitart/Acetaminophen 1 each 03/30/20 00:12 [place] 5-325 PO Q6HR PRN Pain Al Hydroxide/Mg Hydroxide 15 ml 03/27/20 12:57 Maalox PO Q6HR PRN Indigestion Albuterol/Ipratropium 3 ml 04/01/20 12:00 04/01/20 11:23 Duoneb 0.5 Mg-3 Mg/3 Ml Soln INHALATION Not Given RT-Q4H JERRELL Alprazolam 0.25 mg 03/27/20 12:57 03/31/20 15:37 Xanax PO 0.25 mg Q6HR PRN Administration Anxiety Aspirin 81 mg 03/31/20 09:00 04/01/20 08:30 Aspirin PO 81 mg DAILY JERRELL Administration Atorvastatin Calcium 40 mg 03/27/20 21:00 03/31/20 20:34 Lipitor PO 40 mg HS JERRELL Administration Buspirone HCl 10 mg 03/27/20 13:00 04/01/20 08:30 Buspar PO 10 mg BID JERRELL Administration Calcium Carbonate/Glycine 1,000 mg 03/27/20 12:57 03/27/20 16:09 Tums PO 1,000 mg Q4HR PRN Administration Dyspepsia Enoxaparin Sodium 40 mg 04/01/20 12:00 Lovenox SQ DAILY JERRELL Fluvoxamine Maleate 25 mg 03/27/20 13:00 04/01/20 08:29 Luvox PO 25 mg DAILY JERRELL Administration Furosemide 40 mg 04/01/20 16:00 Lasix IV Q8HR JERRELL Glipizide 2.5 mg 03/31/20 17:30 04/01/20 06:52 Glucotrol PO 2.5 mg AC-BID JERRELL Administration Hydromorphone HCl 0.5 mg 03/30/20 00:11 03/30/20 22:00 Dilaudid IVP 0.5 mg Q4HR PRN Administration Pain Ampicillin Sodium/Sulbactam 100 mls @ 200 mls/hr 03/29/20 00:00 03/31/20 23:49 Sodium 3 gm/ Sodium Chloride IVPB 200 mls/hr Q12H JERRELL Administration Vancomycin HCl 1,250 mg/ 250 mls @ 125 mls/hr 04/01/20 09:00 04/01/20 08:30 Sodium Chloride IVPB 125 mls/hr Q24HR JERRELL Administration Propofol 1,000 mg/ IV Solution 100 mls @ 0 mls/hr 04/01/20 11:30 IV .Q0M JERRELL Protocol Titrate Sodium Chloride 1,000 mls @ 999 mls/hr 04/01/20 11:44 04/01/20 11:51 Saline 0.9% IV 04/01/20 13:44 999 mls/hr .Q1H1M JERRELL Administration Sodium Chloride 1,000 mls @ 100 mls/hr 04/01/20 11:45 04/01/20 11:52 Saline 0.9% IV 100 mls/hr .Q10H JERRELL Administration Insulin Aspart 0 unit 03/28/20 12:30 04/01/20 06:11 Novolog SQ Not Given ACHS [facility] Protocol Insulin Detemir 20 unit 03/31/20 21:00 03/31/20 21:48 Levemir SQ 20 unit HS JERRELL Administration Lactulose 20 gm 03/27/20 12:57 Cephulac PO DAILY PRN Constipation Lamotrigine 100 mg 03/27/20 13:00 04/01/20 08:30 Lamictal PO 100 mg DAILY JERRELL Administration [place] Carbonate 300 mg 03/27/20 13:00 04/01/20 08:29 [place] Carbonate PO 300 mg DAILY JERRELL Administration Magnesium Hydroxide 2,400 mg 03/27/20 12:57 Milk Of Magnesia PO DAILY PRN Constipation Melatonin 3 mg 03/27/20 12:57 Melatonin PO HS PRN Insomnia Metformin HCl 500 mg 03/31/20 17:30 04/01/20 06:52 Glucophage PO 500 mg AC-TID JERRELL Administration Metoclopramide HCl 10 mg 03/31/20 17:30 04/01/20 06:51 Reglan PO 10 mg ACHS JERRELL Administration Metoprolol Tartrate 25 mg 03/28/20 12:00 04/01/20 08:30 Lopressor PO 25 mg BID JERRELL Administration Miscellaneous Information 1 each 03/27/20 18:01 Potassium Per Protocol MISCELLANE DAILY PRN Per Protocol Protocol Miscellaneous Information 1 each 03/27/20 18:02 Magnesium Per Protocol MISCELLANE DAILY PRN Per Protocol Protocol Miscellaneous Information 0 each 04/02/20 08:00 Vancomycin Trough Due MISCELLANE 04/02/20 08:01 DIRECTED ONE Multivitamins 1 each 03/28/20 09:00 04/01/20 08:30 Theragran PO 1 each DAILY JERRELL Administration Naloxone HCl 0.2 mg 03/27/20 12:57 Narcan IV Q2M PRN Opioid Reversal Ondansetron HCl 4 mg 03/30/20 17:53 03/30/20 18:04 Zofran IVP 4 mg Q6HR PRN Administration Nausea And Vomiting Pantoprazole Sodium 40 mg 04/02/20 09:00 Protonix IV DAILY JERRELL Sodium Bicarbonate 650 mg 03/30/20 17:15 04/01/20 08:30 Sodium Bicarbonate Tab PO 650 mg TID JERRELL Administration Objective - Vital Signs Vital signs: Vital Signs Temp 97.5 F L 04/01/20 08:00 Pulse 71 04/01/20 08:00 Resp 18 04/01/20 08:00 BP 104/64 04/01/20 08:00 Pulse Ox 96 04/01/20 08:00 Intake & Output 03/31/20 04/01/20 04/01/20 18:59 06:59 18:59 Intake Total 295 200 Output Total 1100 700 Balance -805 -500 Weight 59.5 kg Intake: Intake, IV Titration 295 Amount Sodium Chloride 0.9% 1, 45 000 ml @ 75 mls/hr IV . [id number] JERRELL Rx#:[id number] Vancomycin 1,250 mg In 250 Sodium Chloride 0.9% 250 ml @ 125 mls/hr IVPB Q16H JERRELL Rx#:[id number] Oral 200 Output: Urine 1100 700 Other: # Voids 1 # Bowel Movements 1 - Exam -GENERAL: The patient is intubated and sedated HEENT: Pupils are round and equally reacting to light. EOMI. No scleral icterus. No conjunctival pallor. Normocephalic, atraumatic. No pharyngeal erythema. No thyromegaly. CARDIOVASCULAR: S1 and S2 present. No murmurs, rubs, or gallops. -PULMONARY: Chest is clear to auscultation,bilateral crepitation and scattered wheezing ABDOMEN: Soft, nontender, nondistended, normoactive bowel sounds. No palpable organomegaly. MUSCULOSKELETAL: No joint swelling or deformity. -EXTREMITIES: No cyanosis, clubbing, or pedal edema. status post right BKA NEUROLOGICAL: Gross neurological examination did not reveal any focal deficits. SKIN: No rashes. no petechiae. - Labs CBC & Chem 7: 04/01/20 11:05 04/01/20 11:05 Labs: Abnormal Lab Results - Last 24 Hours (Table) 03/31/20 03/31/20 03/31/20 Range/Units 12:05 17:07 20:07 WBC (3.8-10.6) k/uL RBC (3.80-5.40) m/uL Hgb (11.4-16.0) gm/dL Hct (34.0-46.0) % RDW (11.5-15.5) % Neutrophils # (1.3-7.7) k/uL D-Dimer (<0.60) mg/L FEU ABG pH (7.35-7.45) ABG pCO2 (35-45) mmHg ABG pO2 (83-108) mmHg ABG Total CO2 (19-24) mmol/L ABG O2 Saturation (94-97) % Chloride (98-107) mmol/L BUN (7-17) mg/dL Glucose (74-99) mg/dL POC Glucose (mg/dL) 165 H 351 H 440 H (75-99) mg/dL Plasma Lactic Acid Wesley (0.7-2.0) mmol/L Calcium (8.4-10.2) mg/dL AST (14-36) U/L ALT (4-34) U/L Alkaline Phosphatase (38-126) U/L Total Protein (6.3-8.2) g/dL Albumin (3.5-5.0) g/dL Urine Appearance (Clear) Urine Protein (Negative) Amorphous Sediment (None) /hpf Urine Bacteria (None) /hpf Hyaline Casts (0-2) /lpf Urine Mucus (None) /hpf 04/01/20 04/01/20 04/01/20 Range/Units 07:00 07:00 10:26 WBC 20.3 H (3.8-10.6) k/uL RBC 3.66 L (3.80-5.40) m/uL Hgb 10.1 L (11.4-16.0) gm/dL Hct 32.3 L (34.0-46.0) % RDW 16.8 H (11.5-15.5) % Neutrophils # 18.2 H (1.3-7.7) k/uL D-Dimer (<0.60) mg/L FEU ABG pH (7.35-7.45) ABG pCO2 (35-45) mmHg ABG pO2 (83-108) mmHg ABG Total CO2 (19-24) mmol/L ABG O2 Saturation (94-97) % Chloride 118 H (98-107) mmol/L BUN 44 H (7-17) mg/dL Glucose 52 L (74-99) mg/dL POC Glucose (mg/dL) 145 H (75-99) mg/dL Plasma Lactic Acid Wesley (0.7-2.0) mmol/L Calcium 7.7 L (8.4-10.2) mg/dL AST (14-36) U/L ALT (4-34) U/L Alkaline Phosphatase (38-126) U/L Total Protein (6.3-8.2) g/dL Albumin (3.5-5.0) g/dL Urine Appearance (Clear) Urine Protein (Negative) Amorphous Sediment (None) /hpf Urine Bacteria (None) /hpf Hyaline Casts (0-2) /lpf Urine Mucus (None) /hpf 04/01/20 04/01/20 04/01/20 Range/Units 10:58 11:05 11:05 WBC (3.8-10.6) k/uL RBC (3.80-5.40) m/uL Hgb (11.4-16.0) gm/dL Hct (34.0-46.0) % RDW (11.5-15.5) % Neutrophils # (1.3-7.7) k/uL D-Dimer >35.20 H (<0.60) mg/L FEU ABG pH 7.18 L* (7.35-7.45) ABG pCO2 61 H (35-45) mmHg ABG pO2 53 L* (83-108) mmHg ABG Total CO2 25 H (19-24) mmol/L ABG O2 Saturation 78.5 L (94-97) % Chloride 117 H (98-107) mmol/L BUN 42 H (7-17) mg/dL Glucose 133 H (74-99) mg/dL POC Glucose (mg/dL) (75-99) mg/dL Plasma Lactic Acid Wesley (0.7-2.0) mmol/L Calcium 7.3 L (8.4-10.2) mg/dL AST 133 H (14-36) U/L ALT 48 H (4-34) U/L Alkaline Phosphatase 262 H (38-126) U/L Total Protein 4.5 L (6.3-8.2) g/dL Albumin 2.0 L (3.5-5.0) g/dL Urine Appearance (Clear) Urine Protein (Negative) Amorphous Sediment (None) /hpf Urine Bacteria (None) /hpf Hyaline Casts (0-2) /lpf Urine Mucus (None) /hpf 04/01/20 04/01/20 04/01/20 Range/Units 11:05 11:05 11:15 WBC (3.8-10.6) k/uL RBC (3.80-5.40) m/uL Hgb (11.4-16.0) gm/dL Hct (34.0-46.0) % RDW (11.5-15.5) % Neutrophils # (1.3-7.7) k/uL D-Dimer (<0.60) mg/L FEU ABG pH (7.35-7.45) ABG pCO2 (35-45) mmHg ABG pO2 (83-108) mmHg ABG Total CO2 (19-24) mmol/L ABG O2 Saturation (94-97) % Chloride (98-107) mmol/L BUN (7-17) mg/dL Glucose (74-99) mg/dL POC Glucose (mg/dL) 140 H (75-99) mg/dL Plasma Lactic Acid Wesley 3.6 H* (0.7-2.0) mmol/L Calcium (8.4-10.2) mg/dL AST (14-36) U/L ALT (4-34) U/L Alkaline Phosphatase (38-126) U/L Total Protein (6.3-8.2) g/dL Albumin (3.5-5.0) g/dL Urine Appearance Cloudy H (Clear) Urine Protein 1+ H (Negative) Amorphous Sediment Rare H (None) /hpf Urine Bacteria Occasional H (None) /hpf Hyaline Casts 4 H (0-2) /lpf Urine Mucus Rare H (None) /hpf Microbiology - Last 24 Hours (Table) 03/27/20 10:57 Blood Culture Gram Stain - Final Blood Blood Culture - Final Staphylococcus aureus Strep agalactiae - (group b) 03/28/20 14:40 Gram Stain - Preliminary Pleural Fluid Body Fluid Culture - Preliminary Assessment and Plan Assessment: -Acute right foot abscess with cellulitis/1 gangrene and possible underlying osteomyelitis, acute.Status post right above ankle amputation on March 29 -Septicemia with blood cultures positive for MSSA and Streptococcus agalactiae -possible aspiration pneumonia secondary to vomiting, possibly related to distal esophageal thickening -Acute congestive heart failure exacerbation from diastolic dysfunction EF 60- 65% -Pleural effusion as per pulmonary felt to be secondary to CHF/transudate 1250 mL removed right side -cardiopulmonary arrest on 04/01, status post resuscitation and intubation -Diabetes mellitus type 2, chronically insulin, uncontrolled with hypoglycemia this morning. -Essential hypertension -Hyperlipidemia -Acute metabolic encephalopathy from sepsis, improving -Diabetic peripheral neuropathy -Symptomatic anemia possibly combination of underlying renal failure and sepsis-requiring 2 units of blood transfusion -Severe hypoalbuminemia, secondary to moderate protein calorie malnutrition Plan: this is a 59 years old female who presents with septicemia, left foot infection and gangrene status post amputation, bilateral pleural effusion and possible pneumonia and esophageal thickening. She is status post cardiac arrest followed by intubation. Patient transferred to the ICU. Continue with antibiotic as per ID team. Continue with Lasix and IV fluids. Patient is followed by several consultants including pulmonary/critical care team, cardiology team. Also we will consult GI team in view of her possible esophageal thickening. Labs and medication were reviewed.. Continue same treatment. Continue with symptomatic treatment. Resume home medication. Monitor lytes and vitals. DVT and GI prophylaxis. Further recommendations of the clinical course of the patient DVT prophylaxis: Subcutaneous Lovenox GI Prophylaxis: Protonix Prognosis is guarded
--- NOTE | 2020-04-01 13:57 | P.PN ---
Progress Note - Text Progress Note Date: 04/01/20 LUIS GUNTER note: LUIS GUNTER was called at 10:23 AM. Patient was found to be in asystole. High q uality chest compressions was started she received epinephrine and bicarb. ROSC was achieved at 1028. Please refer to CODE sheet for full details. The PCP and turbine operator was notified by nursing. Patient was transferred to the ICU. This event took about 30 minutes to complete.
[2020-04-01 14:01] VITALS: BMI 22.5
[2020-04-01] MEDS: ENOXAPARIN 40 MG/0.4 ML SYRINGE SQ SCH (14:07)
[2020-04-01] MEDS: CISATRACURIUM 200 MG in SODIUM CHLORIDE 0.9% 180 ML IV SCH (14:14)
--- NOTE | 2020-04-01 15:12 | PN ---
PROGRESS NOTE This is a 59-year-old female with a diagnosis of diastolic CHF and bilateral pleural effusions, right greater than left. She is status post right-sided thoracentesis on March 28 with 1250 mL of transudative fluid being removed. In addition, she has a history of acute exacerbation of diastolic CHF, right diabetic foot infection, status post amputation March 29, 2020, poorly controlled diabetes with diabetic neuropathy, acute kidney injury, hypertension, hyperlipidemia, depression, general medical debility, and previous tobacco use. Anyway, the patient, when we saw her, was resting comfortably. There was some concern about her ability to swallow and maybe the fact that she was aspirating as she was coughing up every time she ate. Subsequent to us seeing her, apparently a Code Blue was called and she was found apparently to be in cardiopulmonary arrest and she was resuscitated and moved to the intensive care unit. In the intensive care unit. We will see her there later this morning. Anyway, again, when we saw her, she looked relatively stable. Current vital signs, good temperature 97.5, heart rate 71, respiratory rate 18, blood pressure 104/64 mean 77, 2 L saturation 96%. Appears in no acute distress. HEENT: Examination is grossly unremarkable. NECK: Supple, full range of motion. CARDIOVASCULAR: Examination reveals regular rhythm rate. Heart rate 71 beats per minute. S1, S2 normal. LUNGS: Reveal mostly clear breath sounds. A few scattered rhonchi. No wheeze or crackles. ABDOMEN: Soft. EXTREMITIES: Intact. 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 Lpoez. SKIN: Without rash otherwise. NEUROLOGIC: Examination is difficult to assess. She is somewhat lethargic. She responds appropriately. She does move all 4 extremities. LABS: Reviewed. White count 20.3, hemoglobin 10.1, hematocrit 32.3, platelet count 392,000, sodium, potassium normal. Chloride is 118, CO2 is 23, anion gap is 1. BUN and creatinine were 44 and 1.01. Microbiology is showing evidence of Staph aureus from the blood and from the wound on the right foot on multiple samplings. There is also some anaerobic gram-negative bacilli from March 27 noted. In addition, there appears to be some group B strep as well from the blood and from the wound cultures of the right foot. A chest x-ray today shows evidence of bilateral effusions, right greater than left and right lower lobe infiltrate or atelectasis. MEDICATIONS: Reviewed. ASSESSMENT: 1. Bilateral pleural effusions, right greater than left with right-sided thoracentesis and 1250 mL removed of a transudative fluid, thought related diastolic CHF, on March 28, 2020. 2. Acute exacerbation of diastolic congestive heart failure. 3. Right diabetic foot infection, status post an amputation, disarticulation on March 29, 2020. 4. Poorly controlled diabetes mellitus type 2 with diabetic neuropathy and non healing right foot ulcers/wounds. 5. Acute kidney injury. 6. Hypertension. 7. Hyperlipidemia. 8. Depression. 9. Previous tobacco use. 10.General medical debility. PLAN: Apparently, the patient had a cardiopulmonary arrest. She may have aspirated. She apparently was resuscitated and moved to the ICU. We will be seeing her just in a few minutes. Additional recommendations and suggestions are forthcoming. Prognosis is guarded. MMODL / IJN: [id number] /
--- NOTE | 2020-04-01 15:48 | PN ---
PROGRESS NOTE Mrs. Rios is a 59-year-old female with history of diabetes who presented with chronic limb ischemia and underwent amputation below the knee. She was doing well yesterday and apparently she was doing well this morning. The nursing staff was cleaning her which became unresponsive and had asystole. She had to be intubated and received CPR with epinephrine injection. She is hemodynamically stable at this time. She is in sinus mechanism intubated. There was no episode of ventricular tachycardia or evidence of atrial fibrillation. She has underwent thoracentesis by Dr. Cordoba 3 days ago. She was on IV Lasix 40 mg a day, Lipitor 40 mg daily, aspirin, and metoprolol tartrate 25 mg twice a day in addition to metformin and she has been maintained on Lovenox. PHYSICAL EXAMINATION: This time her blood pressure is running in the 110s with a heart rate in the 100's. LUNGS: Clear anteriorly. HEART: Regular rate and rhythm, S1, S2. No S3 with extra systole systolic murmur. ABDOMEN: Soft. No organomegaly. EXTREMITIES: No edema on the left side, status post amputation on the right side. Her chest x-ray performed early this morning showed effusion on the bilateral effusion. Subsequent chest x-ray performed after intubation showed evidence of fluid overload and congestion that could be related to the CPR. IMPRESSION: 1. Cardiopulmonary arrest. The patient had an episode of asystole, reason for that is on clear. 2. Status post recent amputation. 3. No clear evidence to suggest a cardiac ischemic event. 4. Patient has been maintained on subcu Lovenox and her presenting CT angiogram of the chest did not show pulmonary embolism. 5. History of hypertension. 6. Hyperlipidemia. 7. Diabetes mellitus. RECOMMENDATION: From the cardiac standpoint, I will increase the dose of her diuretic. She will be seen by Dr. Adair regarding her pulmonary status and ventilation. I will follow her renal function. Will repeat her EKG. Her echocardiogram on presentation showed a preserved ventricular size and systolic function. Depending on her progress, further recommendation will be made. The prognosis is guarded. MMODL / KAYLAN: [id number] /
[2020-04-01] MEDS ORDERED: FUROSEMIDE 10 MG/ML 4 ML VIAL IV SCH (16:00)
--- NOTE | 2020-04-01 16:12 | PN ---
PROGRESS NOTE A 59-year-old female patient came with chronic wound and abscess with marked cellulitis. Patient is growing Staph aureus, Streptococcus. Patient had a disarticulation of the ankle. 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 The patient went for disarticulation of the foot and patient is under care of Infectious Disease. The patient also has a history of depression, hypertension, hyperlipidemia, diabetes, chronic wound. The dressing is intact. The patient had a respiratory arrest as she has been intubated and transferred to the intensive care unit. We will change the dressing, if the patient is stable enough. PLAN: Patient will be needing above-knee amputation. MMODL / IJN: [id number] /
--- NOTE | 2020-04-01 17:05 | PN ---
PROGRESS NOTE DATE OF SERVICE: 04/01/2020 REASON FOR FOLLOWUP: Right diabetic foot infection. INTERVAL HISTORY: The patient did have cardiac arrest this morning, apparently the patient was getting bath with nurse's aide. She turned to the side and turned blue. The patient was in asystole was on CPR for about 9 minutes per the RN. Subsequently, patient has been readmited to the ICU currently intubated on the vent. She has received multiple fluid bolus, blood pressure is still low. FiO2 is currently at 100%. PHYSICAL EXAMINATION: Blood pressure 104/64 with a pulse of 71, temp 97.5. She is 97% on 2 L. General description is a middle-aged female intubated on the vent. RESPIRATORY SYSTEM: Unlabored breathing, coarse breath sounds bilaterally. HEART: S1, S2. Regular rate and rhythm. ABDOMEN: Soft, no tenderness. Right ankle disarticulation site currently with no drainage. LABS: Hemoglobin is 10.3, white count of 5.6, BUN of 22, creatinine 1.04. Lactic acid 3.6. DIAGNOSTIC IMPRESSION AND PLAN: Patient admitted to the hospital with right diabetic foot infection, status post amputation of the right foot with evidence of MSSA bacteremia. Patient is currently being treated with vancomycin and Unasyn. Now with evidence of possible cardiac etiology. Will keep the patient on antibiotic and monitor clinical course closely. Continue supportive care. KASSIEL / KAYLAN: [id number] / MTDD
[2020-04-01] MEDS: AMPICILLIN-SULBACTAM 3 GM in SODIUM CHLORIDE 0.9% 100 ML IVPB SCH ×2 (18:22→23:43)
[2020-04-01 18:33] LABS: Glucose,Whole Blood 161 mg/dL (75-99)
--- NOTE | 2020-04-01 20:39 | PCN ---
PROCEDURE NOTE PROCEDURE PERFORMED: Right radial arterial line placement. PREOP DIAGNOSIS: Acute hypoxic respiratory failure, cardiac arrest. POSTOP DIAGNOSIS: Acute hypoxic respiratory failure. ARTERIAL LINE PLACEMENT: Indications: Hemodynamic monitoring. A time-out was completed verifying correct patient, procedure, site, positioning, and implant(s) or special equipment if applicable. Darren's test was performed to ensure adequate perfusion. The patient's right wrist was prepped and draped in sterile fashion. 1% Lidocaine was used to anesthetize the area. An 18G Arrow arterial line was introduced into the radial artery. The catheter was threaded over the guide wire and the needle was removed with appropriate pulsatile blood return. Blood loss was minimal. The catheter was then sutured in place to the skin and a sterile dressing applied. Perfusion to the extremity distal to the point of catheter insertion was checked and found to be adequate. The patient tolerated the procedure well and there were no complications. Procedure was tolerated well. No immediate complications. Good waveform was noted. Line was flushed and sutured in place. Sterile dressing was applied. MMODL / IJN: [id number] /
--- NOTE | 2020-04-01 20:39 | PCN ---
PROCEDURE NOTE PROCEDURE PERFORMED: Left internal jugular triple-lumen catheter. PREOPERATIVE DIAGNOSIS: Administration of fluids and pressors. POSTOP DIAGNOSIS: Administration of fluids and pressors. TRIPLE LUMEN CATHETER PLACEMENT: Indication: Hemodynamic monitoring/Intravenous access. A time-out was completed verifying correct patient, procedure, site, positioning, and implant(s) or special equipment if applicable. The patient was placed in a dependent position appropriate for triple lumen catheter placement based on the vein to be cannulated. The patient's left neck was prepped and draped in sterile fashion. 1% Lidocaine was used to anesthetize the surrounding skin area. A triple lumen 9F Cordis catheter was introduced into the internal jugular vein using Seldinger technique. The catheter was threaded smoothly over the guide wire and appropriate blood return was obtained. Each lumen of the catheter was evacuated of air and flushed with sterile saline. The catheter was then sutured in place to the skin and a sterile dressing applied. Perfusion to the extremity distal to the point of catheter insertion was checked and found to be adequate. There were no immediate complications. There was good blood return from all 3 ports. The catheter was sutured in place. The dressing was applied by the nurse. The tip of the catheter was seen in the superior vena cava/right atrial junction. A chest x-ray did was ordered as per protocol. Sterile dressing was applied by the nurse. OPERATORS: Dr. Adair and Lina Ch. MMANGLEL / IJN: [id number] / MTDD
[2020-04-01] MEDS: ATORVASTATIN 40 MG TAB PO SCH (22:50)
[2020-04-01 23:40] LABS: Glucose,Whole Blood 185 mg/dL (75-99)
[2020-04-02] MEDS ORDERED: NOREPINEPHRINE 32 MG in SODIUM CHLORIDE 0.9% 218 ML IV SCH (00:15)
[2020-04-02] MEDS: NOREPINEPHRINE 32 MG in SODIUM CHLORIDE 0.9% 218 ML IV SCH ×2 (02:01→15:57)
[2020-04-02] MEDS: IPRATROPIUM-ALBUTEROL 3 ML NEB INHALATION SCH ×6 (03:54→23:09)
[2020-04-02 04:48] LABS: ABG Base Excess -12.7 mmol/L; ABG HCO3 16 mmol/L (21-25); ABG PCO2 49 mmHg (35-45); ABG PO2 70 mmHg (83-108); ABG TCO2 18 mmol/L (19-24); Allen Test Performed? Yes
[2020-04-02 04:52] LABS: ABG PH 7.14 (7.35-7.45)
[2020-04-02] MEDS: SODIUM CHLORIDE 0.9% 50 ML with VASOPRESSIN 20 UNIT IVPB SCH ×4 (05:02→23:04)
[2020-04-02 05:32] LABS: Glucose,Whole Blood 219 mg/dL (75-99)
[2020-04-02 05:46] LABS: Anisocytosis Slight; HCT 39.8 % (34.0-46.0); HGB 11.2 gm/dL (11.4-16.0); Hypochromasia Marked; MCHC 28.1 g/dL (31.0-37.0); MCV 92.6 fL (80.0-100.0); Platelet Count 604 k/uL (150-450); Poikilocytosis Slight; RBC 4.29 m/uL (3.80-5.40); RDW 17.3 % (11.5-15.5)
[2020-04-02] MEDS ORDERED: SODIUM BICARB 8.4% 50 ML SYR (1 MEQ/ML) IV STA (05:57)
[2020-04-02 06:00] LABS: Calcium 6.9 mg/dL (8.4-10.2); Potassium 5.5 mmol/L (3.5-5.1)
[2020-04-02] MEDS: INSULIN ASPART (NovoLOG) 100 UNIT/ML VIAL SQ SCH ×4 (06:02→20:55)
[2020-04-02 06:07] LABS: WBC 60.7 k/uL (3.8-10.6)
[2020-04-02] MEDS: SODIUM BICARB 8.4% 50 ML SYR (1 MEQ/ML) IV STA ×2 (06:35→06:36)
[2020-04-02] MEDS: DEXTROSE 5% IN WATER 1,000 ML with SODIUM BICARB (1 MEQ/ML) 100 ML IV SCH ×2 (06:36→21:14)
[2020-04-02 07:28] LABS: Band Neutrophils % 6 %; Lymphocytes # (M) 3.64 k/uL (1.0-4.8); Metamyelocytes # (M) 0.61 k/uL (0); Metamyelocytes % 1 %; Monocytes # (M) 0.61 k/uL (0-1.0); Neutrophils % (M) 88 %; Nucleated Red Blood Cells 0 /100 WBC (0-0); Polychromasia Present; Total Cells Counted 200
[2020-04-02 07:29] LABS: Large Platelets Present
--- NOTE | 2020-04-02 07:36 | XR ---
EXAMINATION TYPE: XR chest 1V portable DATE OF EXAM: 04/02/2020 COMPARISON: 04/01/2020 HISTORY: SOB, Follow Up FINDINGS: Indwelling tubes and catheters are unchanged. No significant change in diffuse airspace disease throughout the left lung and right lung base. Impro ving aeration right upper lobe. Small effusions suspected. Stable appearance of the cardio-mediastinal structures at this time. Pleural effusion unchanged. IMPRESSION: 1. Improving aeration right upper lobe. Continued airspace disease left lung. Clinical correlation an d follow up until resolution is recommended.
[2020-04-02] MEDS: CISATRACURIUM 200 MG in SODIUM CHLORIDE 0.9% 180 ML IV SCH (07:53)
[2020-04-02] MEDS ORDERED: VANCOMYCIN TROUGH DUE 1 EACH MISC MISCELLANE ONE (08:00)
[2020-04-02] MEDS: SODIUM CHLORIDE 0.9% 1,000 ML IV SCH ×2 (08:30→17:11)
[2020-04-02] MEDS ORDERED: PANTOPRAZOLE 40 MG/10 ML VIAL IV SCH (09:00)
[2020-04-02] MEDS: ENOXAPARIN 40 MG/0.4 ML SYRINGE SQ SCH (09:09)
[2020-04-02] MEDS: LITHIUM CARBONATE 300 MG CAP PO SCH (09:11)
[2020-04-02] MEDS: ASPIRIN 81 MG PO SCH (09:11)
[2020-04-02] MEDS: lamoTRIgine 100 MG TAB PO SCH (09:11)
[2020-04-02] MEDS: busPIRone HCl 10 MG TAB PO SCH ×2 (09:11→20:40)
[2020-04-02] MEDS: VANCOMYCIN 1,250 MG in SODIUM CHLORIDE 0.9% 250 ML IVPB SCH (09:12)
--- NOTE | 2020-04-02 09:12 | PN ---
PROGRESS NOTE Mrs. Rios is a 59-year-old female with a history of diabetes, severe peripheral artery disease, status post recent amputation because of gangrene in the foot who yesterday had a cardiopulmonary arrest requiring mechanical ventilation. She is in the ICU, intubated, and sedated. Her white blood cell is elevated highly suggestive of an infectious process. She has underwent thoracentesis early in her admission and her systolic function was normal at that time. The patient is in sinus mechanism with no evidence of malignant arrhythmia. Her urine output has been poor. She has been maintained on aspirin, Lipitor 40 mg daily, lithium, ampicillin, Lovenox subcu, insulin and norepinephrine. PHYSICAL EXAMINATION: Blood pressure 102/60 with a heart rate in the 90s. LUNGS: Clear anteriorly, no wheezes appreciated. HEART: Regular rate and rhythm, S1, S2. No S3. No rub. ABDOMEN: Soft, upper active bowel sounds. EXTREMITIES: No edema on the left side, status post amputation on the right side. Chest x-ray shows evidence of fluid overload with small pericardial effusion. LAB DATA: Revealed a white blood cell of 60,000, hemoglobin of 11.2. BUN and creatinine 47 and 1.61, which has worsened compared to yesterday. Potassium 5.5, pH 7.14, pCO2 of 49, PO2 of 70. IMPRESSION: 1. Acute respiratory failure with possible aspiration pneumonia and fluid overload with preserved systolic function. 2. Acute tubular necrosis with acute renal injury. 3. Status post amputation. 4. Prior episode of pleural effusion with preserved systolic function. 5. History of diabetes. 6. Prior history of hypertension. 7. Hyperlipidemia. RECOMMENDATION: From the cardiac standpoint, will continue present supportive care. Unfortunately prognosis is guarded. Will follow her renal function closely and depending on her progress, further recommendations will be made. MMODL / IJN: [id number] /
--- NOTE | 2020-04-02 10:48 | PN ---
PROGRESS NOTE PULMONARY/CRITICAL CARE PROGRESS NOTE: DATE OF SERVICE: 04/02/2020 Critical care time 33 minutes. A 59-year-old female who came in with a diagnosis of diastolic CHF and bilateral pleural effusions, right greater than left. She is status post right-sided thoracentesis on March 28, with 1.3 L of transudative fluid being removed. She also has a history of acute exacerbation of diastolic CHF, right diabetic foot infection, status post foot amputation, March 29, poorly controlled diabetes, diabetic neuropathy, acute kidney injury, hypertension, hyperlipidemia, depression, and general medical debility as well as chronic tobacco use. The patient apparently was discovered to have a cardiopulmonary arrest. She was resuscitated and moved to the ICU. Currently, she is on mechanical ventilator. We saw her yesterday before she had a cardiopulmonary arrest. Anyway, she is on the volume assist-control mode rate of 24, tidal volume 400, FiO2 of 60%, PEEP of 13. Blood gases show A pO2 of 70, pCO2 of 49 and pH of 7.14. She is currently on Levophed at 60 mcg/minute, vasopressin 0.03 units/minute, propofol at 15 mcg/kg/per minute, Nimbex at 3 mcg/kg/per minute and 2 amps of sodium bicarbonate and D5W at 75 mL an hour. In addition, she is getting Vital AF 1.2 at 20 mL an hour with a goal of 41 mL an hour. Finally, she is on a saline IV at 25 mL an hour. Currently, CVP is running 8-10. We did talk to the patient's [id number] and she was made a DNR. She is going to bring some paperwork in because she believes that Ms. Rios would not want to be on life support whatsoever. Currently, she is doing very poorly. Current vital signs are reviewed,. temperature is 102.9, heart rate 102, respiratory rate 24 blood pressure is 105/64 mean 77, saturations are in the mid 90s. Appears sedated. Currently paralyzed. HEENT: Examination is grossly unremarkable. There is an orally placed endotracheal tube and NG tube. NECK: Supple. Full range of motion. No adenopathy. Neck veins are flat. CARDIOVASCULAR: Examination reveals regular rhythm and rate. Heart rate about 102 beats per minute. S1, S2 normal. Heart sounds are distant. LUNGS: Reveal diffuse coarse rhonchi. Breath sounds equal. ABDOMEN: Soft bowel sounds are not noted. EXTREMITIES are intact. She does have a right foot amputation. No cyanosis or clubbing. There is some mild edema. SKIN: Without rash. NEUROLOGIC: Examination is obviously very difficult to assess, given the fact that she is sedated and paralyzed. CURRENT LAB DATA: Reviewed. White count 16.7, hemoglobin 11.2, hematocrit 39.8, platelet count 604,000, blood gases as mentioned show pO2 of 70, pCO2 49 and pH is 7.14. These blood gases consistent with both combined respiratory and metabolic acidosis. Sodium 141, potassium 5.5, chloride 118 CO2 of 16, anion gap 7. BUN and creatinine 47 and 1.61. She clearly has a hyperchloremic non-ion gap metabolic acidosis. Calcium 6.9. Microbiology showing evidence of Staph aureus in the wound from the right foot as well as Staph aureus and group B strep from the wound in the right foot and Staph aureus and group B strep in the blood from March 27. There is also some anaerobic gram-negative bacilli from the right foot on March 27. CURRENT MEDICATIONS: Reviewed. Currently, the patient is on Tylenol, Unasyn, aspirin, Lipitor, BuSpar, Nimbex, Lovenox, Dilaudid, insulin, DuoNeb, Lamictal, lithium, magnesium replacement, Narcan, norepinephrine, Zofran, Protonix, potassium replacement, propofol, bicarb drip, vancomycin, and vasopressin. ASSESSMENT: 1. Acute cardiopulmonary arrest of unclear etiology, possibly aspiration, requiring intubation and mechanical ventilation on April 01, 2020. 2. Bilateral pleural effusions, right greater than left with right-sided thoracentesis and 1.25 L removed. Fluid was transudative in nature and consistent with diastolic congestive heart failure. 3. Acute exacerbation of diastolic congestive heart failure. 4. Right diabetic foot infection, status post amputation and disarticulation on March 29, 2020. 5. Poorly controlled diabetes mellitus, type 2, diabetic neuropathy, and nonhealing right foot ulcers/wounds. 6. Acute kidney injury. 7. Hypertension. 8. Hyperlipidemia. 9. Depression. 10.Previous tobacco use. 11.General medical debility. 12.Severe septic shock. 13.Profound hypotension refractory to both norepinephrine and vasopressin, secondary to sepsis. PLAN: The patient was made a DNR after talking to the [id number], Shelbie. His CVP is running 8-10. She is on multiple drips including norepinephrine, vasopressin, propofol, Nimbex, bicarb drip, and she is getting nourished. Additional recommendations and suggestions are forthcoming. Prognosis is poor. Will continue to follow and treat. Additional recommendations and suggestions are forthcoming. We did speak to the [id number]. Apparently, Ms. Rios has expressed on multiple occasions she would not want to be on life support. Apparently, her mother was on life support, loss of limb and anyway. Apparently, the Gabriel's do not have any kids. Shelbie is the only living relative according to her. Critical care time 33 minutes. MMANGLEL / IJN: [id number] / JORDAN
[2020-04-02 12:15] LABS: Glucose,Whole Blood 266 mg/dL (75-99)
--- NOTE | 2020-04-02 13:19 | PN ---
PROGRESS NOTE This is a 59-year-old female. We saw her for gangrene and necrosis fasciitis of the right foot. The patient went for disarticulation of the foot and we changed the dressing yesterday and patient had a cardiopulmonary arrest and she has been intubated in the intensive care unit. The patient is a DNR. At this point, we will change the dressing every 48 hours. Will follow with you. BOSTON / KAYLAN: [id number] /
[2020-04-02] MEDS: AMPICILLIN-SULBACTAM 3 GM in SODIUM CHLORIDE 0.9% 100 ML IVPB SCH (13:42)
[2020-04-02] MEDS ORDERED: DAPTOmycin 500 MG in SODIUM CHLORIDE 0.9% 50 ML IVPB SCH (15:00)
--- NOTE | 2020-04-02 15:31 | PN ---
PROGRESS NOTE DATE OF SERVICE: 04/02/2020 REASON FOR FOLLOWUP: 1. Right diabetic foot infection. 2. Sepsis, status post cardiac arrest. INTERVAL HISTORY: The patient has been running a fever since last night with a temperature of 102 degrees Fahrenheit this morning. The patient is requiring maximal pressor support. FiO2 is currently at 60%. No significant purulent secretion through the ET or any other changes in clinical condition reported by the nursing staff. Patient is currently sedated on the vent, unable to provide any history. PHYSICAL EXAMINATION: Blood pressure 115/64 with a pulse of 98, temperature 100.0. She is 98% on 60% FiO2. General description is a middle-aged female intubated on the vent. RESPIRATORY SYSTEM: Unlabored breathing. Clear to auscultation anteriorly. HEART: S1, S2. Regular rate and rhythm. ABDOMEN: Soft. No tenderness. No guarding or rigidity. Right ankle disarticulation site currently with no evidence of drainage on the dressing. LABS: Hemoglobin 11.3, white count 60,000, BUN of 47, creatinine 1.67. Vancomycin trough is 23.6. DIAGNOSTIC IMPRESSION AND PLAN: Patient with abscess in this patient who is status post cardiac arrest with persistent fever, though x-ray did show some improving aeration. We will adjust antibiotic therapy to daptomycin and Zosyn. Overall prognosis remains guarded. Cultures will be followed. Continue with supportive care. MMODL / IJN: [id number] /
[2020-04-02] MEDS: PIPERACILLIN-TAZOBACTAM 3.375 GM in SODIUM CHLORIDE 0.9% 100 ML IVPB SCH (16:58)
[2020-04-02 17:32] LABS: Glucose,Whole Blood 376 mg/dL (75-99)
--- NOTE | 2020-04-02 18:11 | P.PN ---
Subjective plan: Hospitalist covering for Dr. Rosales from 04/01/20 from records: This is a 59-year-old patient who follows with Dr. Og. Chronic stable medi liliam conditions include depression, hypertension, hyperlipidemia, diabetes, peripheral neuropathy. Patient rather tired. Not able to give to her history. States she injured her foot about a week ago and the motor wound on the right foot. She has some neuropathy and decreased sensation. It has become inflamed and draining not getting better. Hence she presented here. Denies any obvious fever and chills. In the ER glucose was found to be 737. Started on insulin drip. Patient somewhat lethargic but able to answer questions. Admitted with abscess of the right foot causing sepsis, metabolic encephalopathy, pneumonia, uncontrolled diabetes requiring insulin drip. Please started on IV fluids, vancomycin, Unasyn.Blood cultures coming back positive for staph aureus and Streptococcus agalactiae. 1200 mL of right pleural effusion was drained. March 29 right above ankle amputation carried out.patient received 2 units of blood. subjective 04/01/2020 I was going to see the patient this morning for the first time when LUIS GUNTER was called, so information were obtained from staff and records patient was admitted on 03/27 for sepsis, found to have right foot cellulitis/wet gangrene and abscess with possible osteomyelitis status post right above ankle amputation mild vascular surgery team on 03/29, also patient is found with bilateral pleural effusion, right more than left status post right thoracocentesis showed transudative fluid thought to be secondary to diastolic CHF with ejection fraction 60-65%. also patient had CTA of the chest showing possible circumferential wall thickeni ng of the distal esophagus, today patient was noticed of vomiting yellow substance as well as short of breath and shortly after that patient became pulseless and collapsed, LUIS GUNTER was called and last probably 5 minutes per records, with eventually patient intubated and sent to the ICU. Follow-up ABG 7 PMH low at 7.2, slightly high pCO2 48 and low pO2 of 60. chest x-rays showing pulmonary edema versus ARDS. Lactic acid was high at 3.6 and patient was started on normal saline at 100 mL/h, 1 L of MS is given as well patient is already on antibiotics by ID team with Unasyn and IV vancomycin. She was on Lasix 40 mg daily which is increased to 3 times daily. Also she is on oral Protonix twice daily. She is on glipizide 2.5 mg and metformin 500 mg 3 times a day and Levemir 20 units at at bedtime. blood culture growing MSSA and stripped ago TS. High ESR 111.WBC was 20.3, jumped up today to 30 5.6K. Hemoglobin is 10.7. Creatinine normal at 1.04 04/02/2020 Patient remains in the ICU intubated and sedated, Zbyrur-bi-xng Ira was at bedside and she confirmed to me the patient wishes this to be DO NOT RESUSCITATE and that she has 2 brothers who are agreed with that based on outpatient wishes. Today she spiking fever of 101.8. Also leukocytosis junk to 60 K, infectious disease or following the case closely and they switched her antibiotics to daptomycin and Zosyn. Although chest x-ray showing improved orientation for possible aspiration pneumonitis. Her creatinine is also increased from 1.04 out to 1.6. Patient from yesterday needed pressors for example levothyroid. Patient is monitored closely by several consultants. Also she remains on normal saline at 100 mL per hour review of system: N/a, patient cannot provide information Active Medications Generic Name Dose Route Start Last Admin Trade Name Freq PRN Reason Stop Dose Admin Acetaminophen 650 mg 03/27/20 12:57 04/01/20 22:50 Tylenol Tab PO 650 mg Q6HR PRN Administration Mild Pain or Fever > 100.5 Albuterol/Ipratropium 3 ml 04/01/20 12:00 04/02/20 15:08 Duoneb 0.5 Mg-3 Mg/3 Ml Soln INHALATION 3 ml RT-Q4H JERRELL Administration Aspirin 81 mg 03/31/20 09:00 04/02/20 09:11 Aspirin PO 81 mg DAILY JERRELL Administration Buspirone HCl 10 mg 03/27/20 13:00 04/02/20 09:11 Buspar PO 10 mg BID JERRELL Administration Chlorhexidine Gluconate 15 ml 04/02/20 21:00 Peridex MUCOUS MEM BID JERRELL Enoxaparin Sodium 40 mg 04/01/20 12:00 04/02/20 09:09 Lovenox SQ 40 mg DAILY JERRELL Administration Fluvoxamine Maleate 25 mg 03/27/20 13:00 04/02/20 09:10 Luvox PO 25 mg DAILY JERRELL Administration Hydromorphone HCl 0.5 mg 03/30/20 00:11 03/30/20 22:00 Dilaudid IVP 0.5 mg Q4HR PRN Administration Pain Propofol 1,000 mg/ IV Solution 100 mls @ 0 mls/hr 04/01/20 11:30 04/02/20 05:46 IV 15 mcg/kg/min .Q0M JERRELL 5.355 mls/hr Administration Protocol Titrate Sodium Chloride 1,000 mls @ 100 mls/hr 04/01/20 11:45 04/02/20 17:11 Saline 0.9% IV Not Given .Q10H JERRELL Cisatracurium Besylate 200 mg/ 200 mls @ 3.57 mls/hr 04/01/20 13:30 04/02/20 07:53 Sodium Chloride IV 2.5 mcg/kg/min .Q24H JERRELL 8.925 mls/hr Administration Protocol 1 MCG/KG/MIN Norepinephrine Bitartrate 32 250 mls @ 1.964 mls/hr 04/02/20 02:00 04/02/20 17:00 mg/ Sodium Chloride IV 0.68 mcg/kg/min .Q24H JERRELL 26.711 mls/hr Titration Protocol 0.05 MCG/KG/MIN Vasopressin 20 unit/ Sodium 51 mls @ 4.59 mls/hr 04/02/20 04:45 04/02/20 05:02 Chloride IVPB 4.59 mls/hr .[id number] JERRELL Administration 0.03 UNITS/MIN Sodium Bicarbonate 100 ml/ 1,100 mls @ 75 mls/hr 04/02/20 06:00 04/02/20 06:36 Dextrose/Water IV 75 mls/hr .[id number] JERRELL Administration Daptomycin 500 mg/ Sodium 50 mls @ 100 mls/hr 04/02/20 15:00 04/02/20 15:43 Chloride IVPB 100 mls/hr Q24H JERRELL Administration Protocol Piperacillin Sod/Tazobactam 100 mls @ 25 mls/hr 04/02/20 16:00 04/02/20 16:58 Sod 3.375 gm/ Sodium Chloride IVPB 25 mls/hr Q8HR JERRELL Administration Insulin Aspart 0 unit 04/01/20 18:00 04/02/20 17:34 Novolog SQ 7 unit Q6H JERRELL Administration Protocol Lamotrigine 100 mg 03/27/20 13:00 04/02/20 09:11 Lamictal PO 100 mg DAILY JERRELL Administration [place] Carbonate 300 mg 03/27/20 13:00 04/02/20 09:11 [place] Carbonate PO 300 mg DAILY JERRELL Administration Miscellaneous Information 1 each 03/27/20 18:01 Potassium Per Protocol MISCELLANE DAILY PRN Per Protocol Protocol Miscellaneous Information 1 each 03/27/20 18:02 Magnesium Per Protocol MISCELLANE DAILY PRN Per Protocol Protocol Naloxone HCl 0.2 mg 03/27/20 12:57 Narcan IV Q2M PRN Opioid Reversal Ondansetron HCl 4 mg 03/30/20 17:53 03/30/20 18:04 Zofran IVP 4 mg Q6HR PRN Administration Nausea And Vomiting Pantoprazole Sodium 40 mg 04/02/20 09:00 04/02/20 09:11 Protonix IV 40 mg DAILY JERRELL Administration Objective - Vital Signs Vital signs: Vital Signs Temp 101.8 F H 04/02/20 16:00 Pulse 95 04/02/20 16:00 Resp 24 04/02/20 16:00 BP 130/62 04/02/20 16:00 Pulse Ox 98 04/02/20 16:00 Intake & Output 04/01/20 04/02/20 04/02/20 18:59 06:59 18:59 Intake Total 3453.960 2171.392 1788.600 Output Total 30 20 25 Balance 3423.960 2151.392 1763.600 Weight 59.5 kg 83.8 kg Intake: IV 3300 100 .9 200 3300 Sodium Bicarb Amps 100 Intake, IV Titration 339.961 8141.392 1398.600 Amount Ampicillin-Sulbactam 3 gm 100 100 In Sodium Chloride 0.9% 100 ml @ 200 mls/hr IVPB Q12H JERRELL Rx#:[id number] Cisatracurium 200 mg In 41.948 98.115 36.444 Sodium Chloride 0.9% 180 ml @ 1 MCG/KG/MIN 3.57 mls/hr IV .Q24H JERRELL Rx#: [id number] DAPTOmycin 500 mg In 50 Sodium Chloride 0.9% 50 ml @ 100 mls/hr IVPB Q24H [facility] Rx#:[id number] Dextrose 5% in Water 1, 675 000 ml @ 75 mls/hr IV . [id number] JERRELL with Sodium Bicarb (1 Meq/ml) 100 ml Rx#:[id number] Norepinephrine 32 mg In 11.231 Sodium Chloride 0.9% 218 ml @ 0.05 MCG/KG/MIN 1. 395 mls/hr IV .Q24H JERRE[facility] Rx#:[id number] Norepinephrine 32 mg In 62.844 187.156 Sodium Chloride 0.9% 218 ml @ 0.05 MCG/KG/MIN 1. 964 mls/hr IV .Q24H [facility] Rx#:[id number] Norepinephrine 4 mg In 102.012 386.315 Sodium Chloride 0.9% 250 ml @ 0.05 MCG/KG/MIN 11. 335 mls/hr IV .[id number] [facility] Rx#:[id number] Propofol 1,000 mg In 72.887 Empty Bag 1 bag @ Titrate IV .Q0M JERRELL Rx#: [id number] Sodium Chloride 0.9% 1, 1200 100 000 ml @ 100 mls/hr IV . Q10H [facility] Rx#:[id number] Vancomycin 1,250 mg In 250 Sodium Chloride 0.9% 250 ml @ 125 mls/hr IVPB Q24HR [facility] Rx#:[id number] Tube Feeding 10 180 200 Other 60 90 Output: Urine 30 20 25 Other: Voiding Method Indwelling Catheter Indwelling Catheter Indwelling Catheter ABP, PAP, CO, CI - Last Documented Arterial Blood Pressure 109/52 - Exam -GENERAL: The patient is intubated and sedated HEENT: Pupils are round and equally reacting to light. EOMI. No scleral icterus. No conjunctival pallor. Normocephalic, atraumatic. No pharyngeal erythema. No thyromegaly. CARDIOVASCULAR: S1 and S2 present. No murmurs, rubs, or gallops. -PULMONARY: Chest is clear to auscultation,bilateral crepitation and scattered wheezing ABDOMEN: Soft, nontender, nondistended, normoactive bowel sounds. No palpable organomegaly. MUSCULOSKELETAL: No joint swelling or deformity. -EXTREMITIES: No cyanosis, clubbing, or pedal edema. status post right BKA NEUROLOGICAL: Gross neurological examination did not reveal any focal deficits. SKIN: No rashes. no petechiae. - Labs CBC & Chem 7: 04/02/20 05:25 04/02/20 05:25 Labs: Abnormal Lab Results - Last 24 Hours (Table) 04/01/20 04/01/20 04/02/20 Range/Units 18:31 23:37 04:42 WBC (3.8-10.6) k/uL Hgb (11.4-16.0) gm/dL MCHC (31.0-37.0) g/dL RDW (11.5-15.5) % Plt Count (150-450) k/uL Neutrophils # (Manual) (1.3-7.7) k/uL Metamyelocytes # (Man) (0) k/uL ABG pH 7.14 L* (7.35-7.45) ABG pCO2 49 H (35-45) mmHg ABG pO2 70 L (83-108) mmHg ABG HCO3 16 L (21-25) mmol/L ABG Total CO2 18 L (19-24) mmol/L ABG O2 Saturation 91.0 L (94-97) % Potassium (3.5-5.1) mmol/L Chloride (98-107) mmol/L Carbon Dioxide (22-30) mmol/L BUN (7-17) mg/dL Creatinine (0.52-1.04) mg/dL Glucose (74-99) mg/dL POC Glucose (mg/dL) 161 H 185 H (75-99) mg/dL Calcium (8.4-10.2) mg/dL 04/02/20 04/02/20 04/02/20 Range/Units 05:25 05:25 05:29 WBC 60.7 H* (3.8-10.6) k/uL Hgb 11.2 L (11.4-16.0) gm/dL MCHC 28.1 L (31.0-37.0) g/dL RDW 17.3 H (11.5-15.5) % Plt Count 604 H (150-450) k/uL Neutrophils # (Manual) 57.00 H (1.3-7.7) k/uL Metamyelocytes # (Man) 0.61 H (0) k/uL ABG pH (7.35-7.45) ABG pCO2 (35-45) mmHg ABG pO2 (83-108) mmHg ABG HCO3 (21-25) mmol/L ABG Total CO2 (19-24) mmol/L ABG O2 Saturation (94-97) % Potassium 5.5 H (3.5-5.1) mmol/L Chloride 118 H (98-107) mmol/L Carbon Dioxide 16 L (22-30) mmol/L BUN 47 H (7-17) mg/dL Creatinine 1.61 H (0.52-1.04) mg/dL Glucose 218 H (74-99) mg/dL POC Glucose (mg/dL) 219 H (75-99) mg/dL Calcium 6.9 L (8.4-10.2) mg/dL 04/02/20 Range/Units 12:13 WBC (3.8-10.6) k/uL Hgb (11.4-16.0) gm/dL MCHC (31.0-37.0) g/dL RDW (11.5-15.5) % Plt Count (150-450) k/uL Neutrophils # (Manual) (1.3-7.7) k/uL Metamyelocytes # (Man) (0) k/uL ABG pH (7.35-7.45) ABG pCO2 (35-45) mmHg ABG pO2 (83-108) mmHg ABG HCO3 (21-25) mmol/L ABG Total CO2 (19-24) mmol/L ABG O2 Saturation (94-97) % Potassium (3.5-5.1) mmol/L Chloride (98-107) mmol/L Carbon Dioxide (22-30) mmol/L BUN (7-17) mg/dL Creatinine (0.52-1.04) mg/dL Glucose (74-99) mg/dL POC Glucose (mg/dL) 266 H (75-99) mg/dL Calcium (8.4-10.2) mg/dL Microbiology - Last 24 Hours (Table) 04/01/20 07:00 Blood Culture - Preliminary Blood No Growth after 24 hours 04/01/20 20:06 Gram Stain - Preliminary Sputum Sputum Culture - Preliminary 03/28/20 14:40 Gram Stain - Final Pleural Fluid Body Fluid Culture - Final 03/28/20 14:40 Anaerobic Culture - Final Pleural Fluid Assessment and Plan Assessment: -cardiopulmonary arrest on 04/01, status post resuscitation and intubation -Acute hypoxic respiratory failure needing mechanical ventilation -Septic shock with blood cultures positive for MSSA and Streptococcus agalactiae -possible aspiration pneumonia secondary to vomiting, possibly related to distal esophageal thickening -Acute right foot abscess with cellulitis/1 gangrene and possible underlying osteomyelitis, acute.Status post right above ankle amputation on March 29 -Acute congestive heart failure exacerbation from diastolic dysfunction EF 60- 65% -Acute kidney injury -Pleural effusion as per pulmonary felt to be secondary to CHF/transudate 1250 mL removed right side -Diabetes mellitus type 2, chronically insulin, uncontrolled with hypoglycemia this morning. -Essential hypertension -Hyperlipidemia -Acute metabolic encephalopathy from sepsis, improving -Diabetic peripheral neuropathy -Symptomatic anemia possibly combination of underlying renal failure and sepsis-requiring 2 units of blood transfusion -Severe hypoalbuminemia, secondary to moderate protein calorie malnutrition Plan: this is a 59 years old female who presents with septic shock, left foot infection and gangrene status post amputation, bilateral pleural effusion and p ossible pneumonia and esophageal thickening. She is status post cardiac arrest followed by intubation. Patient transferred to the ICU. Continue with antibiotic as per ID team. Continue with IV fluids. Patient is followed by several consultants including pulmonary/critical care team, cardiology team. Labs and medication were reviewed.. Continue same treatment. Continue with symptomatic treatment. Resume home medication. Monitor lytes and vitals. DVT and GI prophylaxis. Further recommendations of the clinical course of the patient DVT prophylaxis: Subcutaneous Lovenox GI Prophylaxis: Protonix Patient is DO NOT RESUSCITATE per family patient wishes Prognosis is guarded and poor
[2020-04-02 20:54] LABS: Glucose,Whole Blood 364 mg/dL (75-99)
[2020-04-02] MEDS ORDERED: CHLORHEXIDINE GLUCONATE 15 ML CUP MUCOUS MEM SCH (21:00)
[2020-04-02 21:06] VITALS: TEMP 101.4
[2020-04-02 23:05] LABS: Glucose,Whole Blood 371 mg/dL (75-99)
[2020-04-02] MEDS ORDERED: INSULIN REGULAR BOLUS (FROM DRIP BAG) IV PRN (23:06)
[2020-04-02] MEDS ORDERED: INSULIN REGULAR 100 UNIT in SODIUM CHLORIDE 0.9% 100 ML IV SCH (23:15)
[2020-04-03 00:19] LABS: Glucose,Whole Blood 342 mg/dL (75-99)
[2020-04-03] MEDS: PIPERACILLIN-TAZOBACTAM 3.375 GM in SODIUM CHLORIDE 0.9% 100 ML IVPB SCH (00:21)
[2020-04-03 02:06] VITALS: BP 68/39; PULSE 78; RESP 19
--- NOTE | 2020-04-03 07:31 | P.DS ---
Providers Date of admission: 03/27/20 12:33 Attending physician: Olaf Rosales Consults: 03/27/20 12:33 Consult Physician Routine Consulting Provider: Truman Engel Consult Reason/Comments: cellulitis, diabetic ulcers Do you want consulting provider notified?: Yes 03/27/20 13:02 Consult Physician Routine Consulting Provider: Karsten Lopez Consult Reason/Comments: r foot infection/poss gas gangrene Do you want consulting provider notified?: Yes 03/28/20 10:22 Consult Physician Routine Consulting Provider: Marcia Eisenberg Consult Reason/Comments: chest pain;sob Do you want consulting provider notified?: Yes 03/28/20 12:53 Consult Physician Routine Consulting Provider: Tonja Cordoba Consult Reason/Comments: sob;pleural effusions Do you want consulting provider notified?: Yes 03/30/20 17:52 Consult Physician Urgent Consulting Provider: Miroslava Francis Consult Reason/Comments: bloody emesis Do you want consulting provider notified?: Yes 04/01/20 11:07 Consult Physician Stat Consulting Provider: Marcia Eisenberg Consult Reason/Comments: cardiac arrest Do you want consulting provider notified?: Already Contacted Primary care physician: Rambo Breen [facility] Course: Diagnoses: -cardiopulmonary arrest on 04/01, status post resuscitation and intubation -Acute hypoxic respiratory failure needing mechanical ventilation -Septic shock with blood cultures positive for MSSA and Streptococcus agalactiae -possible aspiration pneumonia secondary to vomiting, possibly related to distal esophageal thickening -Acute right foot abscess with cellulitis/1 gangrene and possible underlying osteomyelitis, acute.Status post right above ankle amputation on March 29 -Acute congestive heart failure exacerbation from diastolic dysfunction EF 60- 65% -Acute kidney injury -Pleural effusion as per pulmonary felt to be secondary to CHF/transudate 1250 mL removed right side -Diabetes mellitus type 2, chronically insulin, uncontrolled with hypoglycemia this morning. -Essential hypertension -Hyperlipidemia -Acute metabolic encephalopathy from sepsis, improving -Diabetic peripheral neuropathy -Symptomatic anemia possibly combination of underlying renal failure and sepsis- requiring 2 units of blood transfusion -Severe hypoalbuminemia, secondary to moderate protein calorie malnutrition Hospital course: This is a 59-year-old patient who follows with Dr. Og. Chronic stable medical conditions include depression, hypertension, hyperlipidemia, diabetes, peripheral neuropathy. Patient rather tired. Not able to give to her history. States she injured her foot about a week ago and the motor wound on the right foot. She has some neuropathy and decreased sensation. It has become inflamed and draining not getting better. Hence she presented here. Denies any obvious fever and chills. In the ER glucose was found to be 737. Started on insulin drip. Patient somewhat lethargic but able to answer questions. Admitted with abscess of the right foot causing sepsis, metabolic enceph alopathy, pneumonia, uncontrolled diabetes requiring insulin drip. Please started on IV fluids, vancomycin, Unasyn.Blood cultures coming back positive for staph aureus and Streptococcus agalactiae. 1200 mL of right pleural effusion was drained. March 29 right above ankle amputation carried out.patient received 2 units of blood. subjective 04/01/2020 I was going to see the patient this morning for the first time when LUIS GUNTER was called, so information were obtained from staff and records patient was admitted on 03/27 for sepsis, found to have right foot cellulitis/wet gangrene and abscess with possible osteomyelitis status post right above ankle amputation mild vascular surgery team on 03/29, also patient is found with bilateral pleural effusion, right more than left status post right th oracocentesis showed transudative fluid thought to be secondary to diastolic CHF with ejection fraction 60-65%. also patient had CTA of the chest showing possible circumferential wall thickening of the distal esophagus, today patient was noticed of vomiting yellow substance as well as short of breath and shortly after that patient became pulseless and collapsed, LUIS GUNTER was called and last probably 5 minutes per records, with eventually patient intubated and sent to the ICU. Follow-up ABG 7 PMH low at 7.2, slightly high pCO2 48 and low pO2 of 60. chest x-rays showing pulmonary edema versus ARDS. Lactic acid was high at 3.6 and patient was started on normal saline at 100 mL/h, 1 L of MS is given as well patient is already on antibiotics by ID team with Unasyn and IV vancomycin. She was on Lasix 40 mg daily which is increased to 3 times daily. Also she is on oral Protonix twice daily. She is on glipizide 2.5 mg and metformin 500 mg 3 times a day and Levemir 20 units at at bedtime. blood culture growing MSSA and stripped ago TS. High ESR 111.WBC was 20.3, jumped up today to 30 5.6K. Hemoglobin is 10.7. Creatinine normal at 1.04 04/02/2020 Patient remains in the ICU intubated and sedated,Kfwzgz-ei-gxt Ira was at bedside and she confirmed to me the patient wishes this to be DO NOT RESUSCITATE and that she has 2 brothers who are agreed with that based on outpatient wishes. Today she spiking fever of 101.8. Also leukocytosis jumped to 60 K, infectious disease or following the case closely and they switched her antibiotics to daptomycin and Zosyn. Although chest x-ray showing improved aeration for possible aspiration pneumonitis. Her creatinine is also increased from 1.04 out to 1.6. Patient from yesterday needed pressers for example levophed. Patient is monitored closely by several consultants. 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 Patient Condition at Discharge: Fair Plan - Discharge Summary Discharge Rx Participant: No New Discharge Prescriptions: No Action Atorvastatin [Lipitor] 40 mg PO HS #30 tab amLODIPine [Norvasc] 10 mg PO DAILY busPIRone HCl [Buspar] 10 mg PO BID fluvoxaMINE MALEATE [Luvox] 25 mg PO DAILY Insulin Glargine,Hum.rec.anlog [Basaglar Kwikpen U-100] 30 unit SQ HS lamoTRIgine [LaMICtal] 100 mg PO DAILY [place] Carbonate 300 mg PO DAILY Multivitamins, Thera [Multivitamin (formulary)] 1 tab PO DAILY Discharge Medication List Atorvastatin [Lipitor] 40 mg PO HS #30 tab 09/05/18 [Rx] Insulin Glargine,Hum.rec.anlog [Basaglar Kwikpen U-100] 30 unit SQ HS 03/27/20 [History] [place] Carbonate 300 mg PO DAILY 03/27/20 [History] Multivitamins, Thera [Multivitamin (formulary)] 1 tab PO DAILY 03/27/20 [History] amLODIPine [Norvasc] 10 mg PO DAILY 03/27/20 [History] busPIRone HCl [Buspar] 10 mg PO BID 03/27/20 [History] fluvoxaMINE MALEATE [Luvox] 25 mg PO DAILY 03/27/20 [History] lamoTRIgine [LaMICtal] 100 mg PO DAILY 03/27/20 [History] Follow up Appointment(s)/Referral(s): Rambo Breen MD [Primary Care Provider] - 1-2 days Discharge Disposition: - Preliminary Cause of Preliminary Cause of : septic shock
[2020-04-03] MEDS ORDERED: VANCOMYCIN 1,250 MG in SODIUM CHLORIDE 0.9% 250 ML IVPB SCH (15:00)
--- NOTE | 2020-04-07 22:24 | CDI ---
Documentation Clarification Form Date: 04/08/2020 From: Gino Stanton Phone: If you have a question about this query, please contact Tere Katz, Condenser Setter at [phone] between 8am and 5pm. Admit Date: 03/27/2020 Discharge Date:04/03/2020 Patient Name: Stefany Rios Visit Number: [id number] ATTENTION: The Clinical Documentation Specialists (CDI) and [facility] Coding Staff appreciate your assistance in clarifying documentation. Please respond to the clarification below the line at the bottom and electronically sign. The CDI & [facility] Coding staff will review the response and follow-up if needed. Please note: Queries are made part of the Legal Health Record. If you have any questions, please contact the author of this message via ITS. Dear Eh Cloud., Anemia is documented in the DS note as "Symptomatic anemia possibly combination of underlying renal failure and sepsis -requiring 2 units of blood transfusion" History/Risk Factors: Sepsis, Hematemesis, CHF, Gas Gangrene Hemoglobin: HGB on admit 8.2 but went down to 6.6 Hematocrit: 22.0L Treatment: 2 units of blood transfusion In order to capture the severity of condition, please clarify the type of anemia and etiology if known:. Acute blood loss anemia Anemia of chronic kidney disease Unable to determine Other, please specify Acute blood loss anemia from surgery to her foot MTDD
--- NOTE | 2020-04-07 22:38 | CDI ---
Documentation Clarification Form Date: 04/08/2020 From: Gino Stanton Phone: If you have a question about this query, please contact Tere Katz Lip And Gate Builder at [phone] between 8am and 5pm. Admit Date: 03/27/2020 Discharge Date: 04/03/2020 Patient Name: Stefany Rios Visit Number: [id number] ATTENTION: The Clinical Documentation Specialists (CDI) and [facility] Coding Staff appreciate your assistance in clarifying documentation. Please respond to the clarification below the line at the bottom and electronically sign. The CDI & [facility] Coding staff will review the response and follow-up if needed. Please note: Queries are made part of the Legal Health Record. If you have any questions, please contact the author of this message via ITS. Dear Eh Cloud., CKD is documented in the 03/28 Elgin Wheeler note as Chronic kidney disease. History/Risk Factors: Sepsis, CHF, Gas Gangrene, Anemia in Renal failure Clinical Indicators: Current BUN/CR/GFR : 81H/1.22/ 57 on 03/27, 42H/1.04/69 on 04/01 Treatment: Conservative management Consults : 03/28 Jordan Kennedy. Patient is having Symptomatic anemia possibly combination of underlying renal failure and sepsis- requiring 2 units of blood transfusion Acute congestive heart failure exacerbation from diastolic dysfunction EF 60- 65% In order to capture the severity of condition, please clarify the stage of the CKD, if known: CKD Stage 1 (GFR > 90) CKD Stage 2 (GFR 60-89) CKD Stage 3 (GFR 30-59) CKD Stage 4 (GFR 15-29) CKD Stage 5 (GFR <15) ESRD Other, please specify Unable to determine CKD Stage 3 (GFR 30-59) MTDD
[2020-04-09 07:29] LABS: Glucose,Whole Blood >600 mg/dL (75-99)
== END 2020-04-03 04:35 | disposition expired | DRG 853 ==
LOC: EC 10:22 → 3SCARD 12:33 → 2SICU 04-01 10:33
PROVIDERS: ADMIT Hospitalist; ATTEND Hospitalist
PROC: 3E033XZ Introduction of Vasopressor into Peripheral Vein, Percutaneous Approach (ICD-10-PCS; 2020-03-27)
PROC: 0W993ZZ Drainage of Right Pleural Cavity, Percutaneous Approach (ICD-10-PCS; 2020-03-28)
PROC: 30233N1 Transfusion of Nonautologous Red Blood Cells into Peripheral Vein, Percutaneous Approach (ICD-10-PCS; 2020-03-28)
PROC: 0Y6M0Z0 Detachment at Right Foot, Complete, Open Approach (ICD-10-PCS; principal; 2020-03-29 07:30)
PROC: 5A1945Z Respiratory Ventilation, 24-96 Consecutive Hours (ICD-10-PCS; 2020-04-01)
PROC: 0BH17EZ Insertion of Endotracheal Airway into Trachea, Via Natural or Artificial Opening (ICD-10-PCS; 2020-04-01)
PROC: 4A133B1 Monitoring of Arterial Pressure, Peripheral, Percutaneous Approach (ICD-10-PCS; 2020-04-01)
PROC: 05HN33Z Insertion of Infusion Device into Left Internal Jugular Vein, Percutaneous Approach (ICD-10-PCS; 2020-04-01)
PROC: 4A133J1 Monitoring of Arterial Pulse, Peripheral, Percutaneous Approach (ICD-10-PCS; 2020-04-01)
DX: A40.1 Sepsis due to streptococcus, group B (principal); G93.41 Metabolic encephalopathy; I50.33 Acute on chronic diastolic (congestive) heart failure; A48.0 Gas gangrene; J69.0 Pneumonitis due to inhalation of food and vomit; M72.6 Necrotizing fasciitis; N17.0 Acute kidney failure with tubular necrosis; R65.21 Severe sepsis with septic shock; J96.01 Acute respiratory failure with hypoxia; J15.6 Pneumonia due to other Gram-negative bacteria; I13.0 Hypertensive heart and chronic kidney disease with heart failure and stage 1 through stage 4 chronic kidney disease, or unspecified chronic kidney disease; E11.52 Type 2 diabetes mellitus with diabetic peripheral angiopathy with gangrene; L03.115 Cellulitis of right lower limb; M86.171 Other acute osteomyelitis, right ankle and foot; E87.4 Mixed disorder of acid-base balance; L02.611 Cutaneous abscess of right foot; D62 Acute posthemorrhagic anemia; Z66 Do not resuscitate; I46.9 Cardiac arrest, cause unspecified; E11.22 Type 2 diabetes mellitus with diabetic chronic kidney disease; E11.42 Type 2 diabetes mellitus with diabetic polyneuropathy; E11.621 Type 2 diabetes mellitus with foot ulcer; E11.69 Type 2 diabetes mellitus with other specified complication; E11.649 Type 2 diabetes mellitus with hypoglycemia without coma; E11.65 Type 2 diabetes mellitus with hyperglycemia; J98.11 Atelectasis; E44.0 Moderate protein-calorie malnutrition; J91.8 Pleural effusion in other conditions classified elsewhere; K92.0 Hematemesis; A41.01 Sepsis due to Methicillin susceptible Staphylococcus aureus; Z11.59 Encounter for screening for other viral diseases; E78.5 Hyperlipidemia, unspecified; Z79.4 Long term (current) use of insulin; F32.9 Major depressive disorder, single episode, unspecified; F41.9 Anxiety disorder, unspecified; G47.00 Insomnia, unspecified; R26.9 Unspecified abnormalities of gait and mobility; N18.3 Chronic kidney disease, stage 3 (moderate); I99.8 Other disorder of circulatory system; K59.00 Constipation, unspecified; Z79.899 Other long term (current) drug therapy; Z88.1 Allergy status to other antibiotic agents; Z82.49 Family history of ischemic heart disease and other diseases of the circulatory system; Z82.0 Family history of epilepsy and other diseases of the nervous system; Z82.3 Family history of stroke; Z83.3 Family history of diabetes mellitus; Z87.01 Personal history of pneumonia (recurrent); Z68.31 Body mass index [BMI] 31.0-31.9, adult
CPT/HCPCS: 36415; 36600; 71045; 71046; 71275; 76604; 80048; 80051; 80053; 80202; 81001; 82009; 82565; 82803; 82805; 82945; 82947; 83605; 83615; 83735; 83880; 84100; 84157; 84484; 84520; 85025; 85027; 85379; 85610; 85652; 85730; 86850; 86900; 86901; 86920; 87040; 87070; 87075; 87077; 87102; 87116; 87186; 87205; 87206; 87252; 87496; 87498; 87502; 87529; 87634; 87798; 88108; 88305; 88307; 88311; 89050; 93005; 93306; 94002; 94003; 94640; 94760; 96361; 96365; 96366; 96367; 96372; 99291